=== PATIENT | female | born 1970 | race Caucasian/White ===

== ENCOUNTER 2017-12-28 09:32 | Day surgery (SDC) | payer BC ==
[2017-12-28] VITALS (8 sets, daily range): BP systolic 107–125; BP diastolic 57–73
[~2017-12-28] VITALS: Ht 157.5 cm; Wt 102.1 kg
--- OUTSIDE RECORDS SUMMARY | 2017-12-28 09:37 | XMS REPORT ---
Author Author Arabella Trevino Organization [facility] Address [address] [place], [place] [id number] Care Team Providers Care Filter Press Pumper Name Role Phone Arabella Trevino PCP Unavailable Arabella Trevino PreferredProvider Unavailable Allergies and Adverse Reactions Name Reaction Notes ibuprofen Augmentin Risperdal causes migraines Plan of Treatment Planned Activity Comments Planned Date Planned Time Plan/Goal CBC With Auto Differential 11/16/2015 12:00 AM CMP (comprehensive metabolic panel) 11/16/2015 12:00 AM .Lipid Panel 11/16/2015 12:00 AM Urinalysis with C/S If Indicated 11/16/2015 12:00 AM TSH 11/16/2015 12:00 AM T4, Free 11/16/2015 12:00 AM Free thyroxine (FT4) measurement 01/10/2016 12:00 AM HIP COMP MIN 2 VIEWS 10/27/2016 12:00 AM MRI LUMBAR W/WO CONTRAST 11/11/2016 12:00 AM abd bloating and abd pain for 1 year hypothyroidism unresponsive to treatment Medications Active Name Start Date Estimated Completion Date SIG Comments epinephrine 0.3 mg/0.3 mL injection auto-injector inject 0.3 milliliter (0.3 mg) by intramuscular route once as needed for anaphylaxis Nature-Throid 130 mg oral tablet 05/06/2016 05/01/2017 take 1 tablet (130 mg) by oral route once daily before breakfast for 90 days hydroxyzine pamoate 25 mg oral capsule take 1 capsule (25 mg) by oral route 3 times per day triamterene-hydrochlorothiazid 37.5-25 mg oral tablet take 1 tablet by oral route once daily for 30 days Protonix 40 mg oral tablet,delayed release (DR/EC) 08/12/2016 08/07/2017 take 1 tablet (40 mg) by oral route once daily for 90 days simvastatin 20 mg oral tablet 08/12/2016 02/08/2017 take 1 tablet (20 mg) by oral route once daily in the evening for 90 days Vitamin D2 50,000 unit oral capsule 08/14/2016 08/09/2017 take 1 capsule (50 ,000 unit) by oral route once weekly tramadol 50 mg oral tablet 10/27/2016 01/25/2017 take 1 tablet by oral route 3 times a day for 30 days Name Start Date Expiration Date SIG Comments Flonase Allergy Relief 50 mcg/actuation nasal spray,suspension 08/05/201512/03 inhale 1 puff by nasal route daily for 30 days amoxicillin 500 mg oral tablet 08/05/2015 08/15/2015 take 2 tablets by oral route every 12 hours for 10 days [employer] Thyroid 90 mg oral tablet 08/05/2015 11/03/2015 take 1 tablet by oral route daily for 90 days Prozac 20 mg oral capsule 12/09/2015 06/06/2016 take 2 capsules by oral route daily cyclobenzaprine 10 mg oral tablet 01/10/2016 02/09/2016 take 1 tablet (10 mg) by oral route 3 for 30 days topiramate 100 mg oral tablet 03/21/2016 2016 take 1 tablet (100 mg) by oral route 2 for 30 days gabapentin 800 mg oral tablet 05/06/2016 08/04/2016 take 1 tablet (800 mg) by oral route 3 for 30 days potassium chloride 20 mEq oral tablet extended release 05/06/2016 05/20/2016 take 1 tablet (20 meq) by oral route 2 times per day with food for 14 days sulfamethoxazole-trimethoprim 800-160 mg oral tablet 05/06/2016 05/16/2016 take 1 tablet by oral route every 12 hours for 10 days mupirocin 2 % topical ointment 05/06/2016 05/16/2016 apply a small amount to the affected area by topical route 3 times per day for 10 days baclofen 10 mg oral tablet 08/12/2016 11/10/2016 take 1 tablet (10 mg) by oral route 3 for 30 days amoxicillin 500 mg oral tablet 10/02/2016 10/12/2016 take 2 tablet by oral route 2 times a day for 10 days EpiPen 2-Chuy 0.3 mg/0.3 mL injection auto-injector 10/02/2016 10/05/2016 inject 0.3 milliliter (0.3 mg) by intramuscular route once as needed for anaphylaxis for 1 day Discontinued Name Start Date Discontinued Date SIG Comments levothyroxine 150 mcg oral tablet 05/20/2015 11/16/2015 take 1 tablet (150 mcg ) by oral route once daily on nature- thyroid citalopram 40 mg oral tablet 08/05/2015 11/16/2015 take 1 tablet (40 mg) by oral route once daily for 90 days citalopram 40 mg oral tablet 08/05/2015 11/16/2015 take 1 tablet (40 mg) by oral route once daily for 90 days [facility] switched her to prozac hydroxyzine pamoate 25 mg oral capsule 02/13/2016 take 1 capsule by oral route 3 times a day for 30 days olanzapine 5 mg oral tablet 12/24/2015 take 1 tablet (5 mg) by oral route once daily in the evening for 30 days Boniva 150 mg oral tablet 01/10/2016 02/13/2016 take 1 tablet (150 mg) by oral route once a month on the same date; Take with a full glass of water and remain in an upright position for at least 60 minutes. for 30 days Percocet 10-325 mg oral tablet 08/12/2016 take 1 tablet by oral route every 6 hours as needed Problem List Description Status Onset Anxiety and depression Active Chronic back pain greater than 3 months duration Active arthritis Active Hallucinations Active Heart Attack Active 2012 Kidney stone Active Osteoporosis Active Thyroid disorder Active Depression Active Dizziness Active Anxiety Active Tingling in extremities Active Vital Signs Date Time BP-Sys(mm[Hg] BP-Lakshim(mm[Hg]) HR(bpm) RR(rpm) Temp WT HT HC BMI BSA BMI Percentile O2 Sat(%) 10/27/2016 3:26:00 PM 110 mmHg 70 mmHg 69 bpm 18 rpm 96.9 F 178.6 lbs 62 in 32.67 kg/m2 1.88 m2 100 % 10/02/2016 9:31:00 AM 120 mmHg 80 mmHg 87 bpm 16 rpm 97.4 F 178.6 lbs 62 in 32.666 kg/m 1.8825 m 97 % 08/12/2016 10:41:00 AM 120 mmHg 80 mmHg 85 bpm 16 rpm 96.7 F 182.6 lbs 62 in 33.40 kg/m2 1.90 m2 96 % 05/19/2016 3:08:00 PM 114 mmHg 72 mmHg 76 bpm 97.5 F 181 lbs 62 in 33.105 kg/m 1.8951 m 100 % 05/06/2016 1:41:00 PM 110 mmHg 70 mmHg 83 bpm 18 rpm 97.4 F 186.2 lbs 62 in 34.06 kg/m2 1.92 m2 96 % 02/13/2016 2:33:00 PM 136 mmHg 80 mmHg 87 bpm 18 rpm 98.7 F 185.125 lbs 62 in 33.8595 kg/m 1.9166 m 97 % 01/10/2016 9:27:00 AM 108 mmHg 78 mmHg 86 bpm 20 rpm 96.7 F 180 lbs 100 % 12/09/2015 6:36:00 PM 130 mmHg 80 mmHg 115 bpm 18 rpm 98.3 F 175.25 lbs 62 in 32.0533 kg/m 1.8648 m 99 % 11/16/2015 2:24:00 PM 120 mmHg 80 mmHg 83 bpm 18 rpm 98.1 F 171.25 lbs 62 in 31.32 kg/m2 1.84 m2 99 % 08/05/2015 5:02:00 PM 108 mmHg 80 mmHg 81 bpm 97.7 F 171.25 lbs 62 in 31.3217 kg/m 1.8434 m 98 % 05/20/2015 5:06:00 PM 108 mmHg 86 mmHg 82 bpm 20 rpm 97.2 F 177.125 lbs 62 in 32.40 kg/m2 1.87 m2 98 % Social History Name Description Comments Tobacco Current every day smoker Alcohol Never History of Procedures Date Ordered Description Order Status 12/09/2015 12:00 AM COMPLETE CBC W/AUTO DIFF WBC Reviewed 12/09/2015 12:00 AM COMPREHEN METABOLIC PANEL Reviewed 12/09/2015 12:00 AM LIPID PANEL Reviewed 12/09/2015 12:00 AM URNLS DIP STICK/TABLET RGNT AUTO W/O MICROSCOPY Reviewed 12/09/2015 12:[address] ABD & PELV W/CONTRAST Reviewed 01/10/2016 12:00 AM ASSAY THYROID STIM HORMONE Reviewed 01/10/2016 12:00 AM TDAP VACCINE 7 YRS/> IM Reviewed 05/08/2016 12:00 AM METABOLIC PANEL TOTAL CA Reviewed 05/06/2016 12:00 AM METABOLIC PANEL TOTAL CA Reviewed 05/06/2016 12:00 AM LIPID PANEL Reviewed 05/06/2016 12:00 AM URINALYSIS AUTO W/SCOPE Reviewed 05/06/2016 12:00 AM ASSAY THYROID STIM HORMONE Reviewed 05/06/2016 12:00 AM ASSAY OF FREE THYROXINE Reviewed 05/06/2016 12:00 AM ASSAY OF MAGNESIUM Reviewed 08/12/2016 12:00 AM COMPLETE CBC W/AUTO DIFF WBC Reviewed 08/12/2016 12:00 AM COMPREHEN METABOLIC PANEL Reviewed 08/12/2016 12:00 AM ASSAY THYROID STIM HORMONE Reviewed 08/12/2016 12:00 AM ASSAY OF FREE THYROXINE Reviewed 08/12/2016 12:00 AM ASSAY OF MAGNESIUM Reviewed 08/12/2016 12:00 AM LIPID PANEL Reviewed 08/12/2016 12:00 AM VIT D 1 25-DIHYDROXY Reviewed 08/12/2016 12:00 AM VITAMIN B-12 Reviewed 08/12/2016 12:00 AM ASSAY OF FOLIC ACID SERUM Reviewed 08/12/2016 12:00 AM URNLS DIP STICK/TABLET RGNT AUTO W/O MICROSCOPY Reviewed 10/02/2016 12:00 AM LIPID PANEL Reviewed 10/02/2016 12:00 AM ASSAY THYROID STIM HORMONE Reviewed 10/02/2016 12:00 AM ASSAY OF FREE THYROXINE Reviewed 10/02/2016 12:00 AM FREE ASSAY (FT-3) Reviewed 10/02/2016 12:00 AM COLLECTION VENOUS BLOOD VENIPUNCTURE Reviewed 10/27/2016 12:00 AM X-RAY EXAM THORAC SPINE 2VWS Reviewed 05/20/2015 12:00 AM ELECTROCARDIOGRAM COMPLETE Reviewed Results Summary Data and Description Results 12/13/2015 10:05 AM COLOR YELLOW APPEARANCE CLEAR SPEC GRAV 1.020 pH 7.0 PROTEIN NEGATIVE GLUCOSE NEGATIVE mg/dLKETONE NEGATIVE BILIRUBIN NEGATIVE BLOOD NEGATIVE NITRITE NEGATIVE LEUK SCREEN NEGATIVE MICRO INDICATED? NOT INDICATED WBC 9.6 RBC 4.63 HGB 14.80 g/dLHCT 44.50 %MCV 96.0 fLMCH 32.0 pgMCHC 33.30 g/ dLRDW SD 51 RDW CV 14.40 %MPV 9.70 fLPLT 389 NRBC# 0.00 NRBC% 0.0 %NEUT 50.90 %% LYMP 37.60 %%MONO 8.80 %%EOS 2.30 %%BASO 0.40 %#NEUT 4.89 #LYMP 3.62 #MONO 0.85 #EOS 0.22 #BASO 0.04 MANUAL DIFF NOT IND TRIGLYCERIDES 84.0 mg/dLCHOLESTEROL 212.0 mg/dLHDL 53.0 mg/dLTOT CHOL/HDL 4.0 LDL (CALC) 142.0 mg/dLGLUCOSE 96.0 mg/ dLSODIUM 140.0 mmol/LPOTASSIUM 4.40 mmol/LCHLORIDE 107.0 mmol/LCO2 24.0 mmol/ LBUN 6.0 mg/dLCREATININE 1.0 mg/dLSGOT/AST 18.0 IU/LSGPT/ALT 21.0 IU/LALK PHOS 99.0 IU/LTOTAL PROTEIN 7.30 g/dLALBUMIN 4.20 g/dLTOTAL BILI 0.30 mg/dLCALCIUM 9.20 mg/dLAGE 45 GFR NonAA 60 GFR AA 73 eGFR 60 eGFR AA* >60 05/07/2016 2:52 PM COLOR YELLOW APPEARANCE CLOUDY SPEC GRAV 1.015 pH 7.5 PROTEIN NEGATIVE GLUCOSE NEGATIVE mg/dLKETONE NEGATIVE BILIRUBIN NEGATIVE BLOOD NEGATIVE NITRITE NEGATIVE LEUK SCREEN NEGATIVE MICRO INDICATED? NOT INDICATED TSH 78.650 uIU/mLFREE T4 0.52 GLUCOSE 83.0 mg/dLSODIUM 138.0 mmol/LPOTASSIUM 3.30 mmol/LCHLORIDE 101.0 mmol/LCO2 27.0 mmol/LBUN 9.0 mg/dLCREATININE 1.10 mg/ dLCALCIUM 9.10 mg/dLAGE 45 GFR NonAA 53 GFR AA 64 eGFR 53 eGFR AA* >60 TRIGLYCERIDES 116.0 mg/dLCHOLESTEROL 225.0 mg/dLHDL 40.0 mg/dLTOT CHOL/HDL 5.6 LDL (CALC) 162.0 mg/dLMAGNESIUM 2.50 mg/dL 05/08/2016 2:44 PM GLUCOSE 91.0 mg/dLSODIUM 138.0 mmol/LPOTASSIUM 3.50 mmol/ LCHLORIDE 103.0 mmol/LCO2 26.0 mmol/LBUN 9.0 mg/dLCREATININE 1.0 mg/dLCALCIUM 8.50 mg/dLAGE 45 GFR NonAA 60 GFR AA 73 eGFR 60 eGFR AA* >60 08/12/2016 3:25 PM WBC 12.2 RBC 4.80 HGB 14.80 g/dLHCT 45.80 %MCV 95.0 fLMCH 30.80 pgMCHC 32.30 g/dLRDW SD 53 RDW CV 15.10 %MPV 10.10 fLPLT 403 NRBC# 0.00 NRBC% 0.0 %NEUT 59.0 %%LYMP 33.30 %%MONO 5.10 %%EOS 1.80 %%BASO 0.40 %#NEUT 7.21 #LYMP 4.06 #MONO 0.62 #EOS 0.22 #BASO 0.05 MANUAL DIFF NOT IND GLUCOSE 78.0 mg/dLSODIUM 143.0 mmol/LPOTASSIUM 4.0 mmol/LCHLORIDE 108.0 mmol/LCO2 23.0 mmol/LBUN 12.0 mg/dLCREATININE 1.0 mg/dLSGOT/AST 19.0 IU/LSGPT/ALT 17.0 IU/LALK PHOS 103.0 IU/LTOTAL PROTEIN 7.0 g/dLALBUMIN 4.40 g/dLTOTAL BILI 0.30 mg/ dLCALCIUM 9.20 mg/dLAGE 45 GFR NonAA 60 GFR AA 73 eGFR 60 eGFR AA* >60 COLOR YELLOW APPEARANCE CLEAR SPEC GRAV 1.015 pH 7.0 PROTEIN NEGATIVE GLUCOSE NEGATIVE mg/dLKETONE NEGATIVE BILIRUBIN NEGATIVE BLOOD NEGATIVE NITRITE NEGATIVE LEUK SCREEN NEGATIVE MICRO INDICATED? NOT INDICATED TRIGLYCERIDES 91.0 mg/dLCHOLESTEROL 266.0 mg/dLHDL 47.0 mg/dLTOT CHOL/HDL 5.7 LDL (CALC) 201.0 mg/ dLMAGNESIUM 2.50 mg/dLFREE T4 0.45 VITAMIN B12 256.0 pg/mLFOLATE 4.10 ng/mLTSH 149.640 uIU/mLCalcitriol(1,25 di-OHVit D) 19.80 pg/mL 10/02/2016 2:56 PM TRIGLYCERIDES 94.0 mg/dLCHOLESTEROL 278.0 mg/dLHDL 48.0 mg/ dLTOT CHOL/HDL 5.8 LDL (CALC) 211.0 mg/dLFREE T4 0.45 TSH 125.230 uIU/ mLTriiodothyronine,Free,Serum 1.90 pg/mL History Of Immunizations Name Date Admin Mfg Name Mfg Code Trade Name Lot# Route Inj Vis Given Vis Pub CVX Tdap 01/10/2016 SportStylistine SKB BOOSTRIX [id number] Intramuscular Left Arm 01/10/2016 03/02/2013 115 History of Past Illness Name Date of Onset Comments Anxiety arthritis Depression Dizziness Fractured bone Headache Heart Attack 2013 Kidney stone Osteoporosis Tingling in extremities Thyroid disorder Weight Change Chronic back pain greater than 3 months duration Hallucinations Anxiety and depression Migraine Chest pain of uncertain etiology May 20 2015 5:22PM Short of breath on exertion May 20 2015 5:22PM Orthopnea May 20 2015 5:22PM Cellulitis of face May 20 2015 5:22PM Depression and anxiety Aug 05 2015 5:06PM Migraine Aug 05 2015 5:06PM Sinusitis Aug 05 2015 5:06PM Hypothyroidism, Acquired Nov 16 2015 2:27PM Chronic back pain greater than 3 months duration Nov 16 2015 2:27PM Osteoporosis Nov 16 2015 2:27PM Abdominal Pain Dec 09 2015 6:39PM Abdominal bloating Dec 09 2015 6:39PM Hypothyroidism, Acquired Dec 09 2015 6:39PM Chronic back pain greater than 3 months duration Dec 09 2015 6:39PM Osteoporosis Dec 09 2015 6:39PM Abdominal Pain, Left Upper Quadrant Dec 24 2015 2:22PM Gastritis Dec 24 2015 2:22PM Hypothyroidism, Acquired Jan 10 2016 9:29AM Low Back Pain Jan 10 2016 9:29AM Chronic back pain Jan 10 2016 9:29AM Muscle spasm of back Jan 10 2016 9:29AM Osteoporosis Jan 10 2016 9:29AM Hypothyroidism, Acquired May 06 2016 1:44PM Weight Gain, Abnormal May 06 2016 1:44PM Edema bilateral lower extremities May 06 2016 1:44PM pre-operative examination, unspecified May 06 2016 1:44PM Hypokalemia May 06 2016 1:44PM Cellulitis May 06 2016 1:44PM Lower extremity edema May 08 2016 10:41AM Chronic back pain greater than 3 months duration Feb 13 2016 2:37PM Twitching May 19 2016 3:14PM Hypothyroid Aug 12 2016 10:42AM Migraine Aug 12 2016 10:42AM Neuropathy Aug 12 2016 10:42AM Osteoporosis Aug 12 2016 10:42AM Vitamin D deficiency Aug 12 2016 10:42AM Hypothyroidism, Acquired Aug 12 2016 10:43AM Low Back Pain Aug 12 2016 10:43AM Osteoarthritis Aug 12 2016 10:43AM Osteoporosis Aug 12 2016 10:43AM Vitamin D deficiency Aug 12 2016 10:43AM Hypothyroidism Aug 19 2016 7:55PM Hyperlipidemia, unspecified Oct 02 2016 9:33AM Chronic Hypothyroidism, Acquired Unresponsive to treatment Oct 02 2016 9: 33AM Acute sinusitis Oct 02 2016 9:33AM Acute midline thoracic back pain Oct 27 2016 3:28PM Acute Right Low back strain, initial encounter Oct 27 2016 3:28PM Acute Right Hip pain, right Oct 27 2016 3:28PM Lumbar radiculopathy, right Nov 11 2016 9:29AM Payers Insurance Name Company Name Plan Name Plan Number Policy Number Policy Group Number [facility] Date [id number] N/A [employer]/ [employer] [id number] Wednesday, 2015 History of Encounters Visit Date Visit Type Provider 10/27/2016 Office visit Arabella Trevino APRN 10/02/2016 Office visit Arabella Trevino APRN 08/12/2016 Office visit Arabella Trevino APRN 05/19/2016 Office visit Arabella Trevino APRN 05/08/2016 Laboratory Geeta Gray APRN 05/06/2016 Office visit Arabella Trevino APRN 02/13/2016 Office visit Arabella Trevino APRN 01/29/2016 Voided Arabella Trevino APRN 01/10/2016 Office visit 01/10/2016 Office visit Arabella Trevino APRN 12/24/2015 Office visit Rhett Nj MD 12/09/2015 Office visit Arabella Trevino APRN 11/16/2015 Office visit Arabella Trevino APRN 08/05/2015 Office visit Arabella Trevino APRN 05/20/2015 Office visit Arabella Trevino APRN
--- OUTSIDE RECORDS SUMMARY | 2017-12-28 09:38 | XMS REPORT ---
Author Author Arabella Trevino Organization [facility] Address [address] [place], [place] [id number] Care Team Providers Care Machine Feller Name Role Phone Arabella Trevino PCP , blue stem Unavailable Unavailable maravilla Unavailable Unavailable Arabella Trevino Unavailable Unavailable Arabella Trevino PreferredProvider Allergies and Adverse Reactions Name Reaction Notes ibuprofen swelling Augmentin rash Risperdal causes migraines Plan of Treatment Planned Activity Comments Planned Date Planned Time Plan/Goal CMP (comprehensive metabolic panel) 11/16/2015 12:00 AM .Lipid Panel 11/16/2015 12:00 AM Urinalysis with C/S If Indicated 11/16/2015 12:00 AM TSH 11/16/2015 12:00 AM Free thyroxine (FT4) measurement 01/10/2016 12:00 AM HIP COMP MIN 2 VIEWS 10/27/2016 12:00 AM CBC With Auto Differential 11/17/2017 12:00 AM Free thyroxine (FT4) measurement 11/17/2017 12:00 AM 2D Echo Complete - Adult 11/17/2017 12:00 AM Lexiscan Cardiolite 11/17/2017 12:00 AM abd bloating and abd pain for 1 year hypothyroidism unresponsive to treatment 04/21/2017 1:00 PM cad and elevated lipids 01/19/2017 2:30 PM Evaluate CAD and worsening fatigue 07/20/2017 2:00 PM eval cardiac status Medications Active Name Start Date Estimated Completion Date SIG Comments benztropine 1 mg oral tablet take 1 tablet (1 mg) by oral route once daily fluoxetine 40 mg oral capsule take 1 capsule by oral route 3 times a day Vitamin D3 5,000 unit oral tablet 06/14/2017 06/09/2018 take 1 tablet by oral route daily for 90 days Adult Low Dose Aspirin 81 mg oral tablet,delayed release (DR/EC) 07/14/2017 take 1 tablet (81 mg) by oral route once daily with a meal gabapentin 800 mg oral tablet take 1 tablet (800 mg) by oral route 3 times per day levothyroxine 200 mcg oral tablet take 1 tablet (200 mcg) by oral route once daily atorvastatin 20 mg oral tablet 10/07/2017 take 1 tablet (20 mg) by oral route once daily at bedtime for 90 days aripiprazole 15 mg oral tablet take 1 tablet (15 mg) by oral route once daily furosemide 20 mg oral tablet 11/17/2017 take 1 tablet (20 mg) by oral route once daily for 30 days potassium chloride 20 mEq oral tablet extended release 11/17/2017 take 1 tablet (20 meq) by oral route once daily with food for 30 days Bactrim DS 800-160 mg oral tablet 11/17/2017 take 1 tablet by oral route every 12 hours for 10 days mupirocin 2 % topical ointment 11/17/2017 apply a small amount to the affected area by topical route 3 times per day for 10 days Name Start Date Expiration Date SIG Comments Flonase Allergy Relief 50 mcg/actuation nasal spray,suspension 08/05/201512/03 inhale 1 puff by nasal route daily for 30 days amoxicillin 500 mg oral tablet 08/05/2015 08/15/2015 take 2 tablets by oral route every 12 hours for 10 days [employer] Thyroid 90 mg oral tablet 08/05/2015 11/03/2015 take 1 tablet by oral route daily for 90 days cyclobenzaprine 10 mg oral tablet 01/10/2016 02/09/2016 take 1 tablet (10 mg) by oral route 3 for 30 days topiramate 100 mg oral tablet 03/21/2016 2016 take 1 tablet (100 mg) by oral route 2 for 30 days potassium chloride 20 mEq [...] 3 times per day for 10 days hydroxyzine pamoate 25 mg oral capsule take 1 capsule (25 mg) by oral route 3 times per day simvastatin 20 mg oral tablet 08/12/2016 02/08/2017 take 1 tablet (20 mg) by oral route once daily in the evening for 90 days amoxicillin 500 mg oral tablet 10/02/2016 10/12/2016 take 2 tablet by oral route 2 times a day for 10 days EpiPen 2-Chuy 0.3 mg/0.3 mL injection auto-injector 10/02/2016 10/05/2016 inject 0.3 milliliter (0.3 mg) by intramuscular route once as needed for anaphylaxis for 1 day EpiPen 2-Chuy 0.3 mg/0.3 mL injection auto-injector 10/02/2016 10/05/2016 inject 0.3 milliliter (0.3 mg) by intramuscular route once as needed for anaphylaxis for 1 day baclofen 10 mg oral tablet 02/26/2017 05/27/2017 take 1 tablet (10 mg) by oral route 3 for 30 days nicotine 21 mg/24 hr transdermal patch 24 hour 04/15/2017 07/14/2017 apply 1 patch (21 mg) by transdermal route once daily for 30 days pantoprazole 40 mg oral tablet,delayed release (DR/EC) 05/11/2017 TAKE ONE TABLET BY MOUTH DAILY Trokendi XR 200 mg oral capsule,extended release 24hr take 1 capsule by oral route 2 times a day dihydroergotamine mesylt(bulk) miscellaneous powder use as directed One spray in each nares at onset of migraine. One time per day as needed Nature-Throid 146.25 mg oral tablet 08/13/2017 02/09/2018 take 1 tablet ( 146.25 mg) by oral route once daily before breakfast for 90 days cefdinir 300 mg oral capsule 10/07/2017 take 1 capsule (300 mg) by oral route every 12 hours for 10 days Discontinued Name Start Date Discontinued Date SIG Comments epinephrine 0.3 mg/0.3 mL injection auto-injector 04/06/2017 inject 0.3 milliliter (0.3 mg) by intramuscular route once as needed for anaphylaxis epinephrine 0.3 mg/0.3 mL injection auto-injector 04/06/2017 inject 0.3 milliliter (0.3 mg) by intramuscular route once as needed for anaphylaxis levothyroxine 150 mcg oral tablet 05/20/2015 11/16/2015 [...] 3 times a day for 30 days Prozac 20 mg oral capsule 12/09/2015 04/06/2017 take 2 capsules by oral route daily olanzapine 5 mg oral tablet 12/24/2015 take [...] oral route every 6 hours as needed triamterene-hydrochlorothiazid 37.5-25 mg oral tablet 04/06/2017 take 1 tablet by oral route once daily for 30 days Protonix 40 mg oral tablet,delayed release (DR/EC) 08/12/2016 06/11/2017 take 1 tablet (40 mg) by oral route once daily for 90 days Vitamin D2 50,000 unit oral capsule 08/14/2016 06/11/2017 take 1 capsule (50, 000 unit) by oral route once weekly rizatriptan 10 mg oral tablet 07/14/2017 take 1 tablet (10 mg) by oral route once, may repeat at 2 hour intervals; do not exceed 30 mg in 24 hours ondansetron 4 mg oral tablet,disintegrating 06/11/2017 place 2 tablets (8 mg) on top of the tongue where they will dissolve, then swallow by translingual route 1-2 hours prior to radiation therapy aripiprazole 5 mg oral tablet 07/14/2017 take 1 tablet (5 mg) by oral route once daily gabapentin 800 mg oral tablet 06/11/2017 07/14/2017 take 1 tablet by oral route 2 times a day for 30 days wean off due to fatige and sleepiness atorvastatin 20 mg oral tablet 06/11/2017 10/07/2017 take 1 tablet (20 mg) by oral route once daily at bedtime for 90 days aripiprazole 5 mg oral tablet 08/13/2017 take 1 tablet by oral route 2 times a day tramadol 50 mg oral tablet 07/14/2017 08/13/2017 take 1 tablet by oral route 3 times a day for 30 days tramadol 50 mg oral tablet 07/14/2017 08/13/2017 take 1 tablet by oral route 3 times a day for 30 days due to dizzy spells sulfamethoxazole-trimethoprim 800-160 mg oral tablet 07/14/2017 08/13/2017 take 1 tablet by oral route every 12 hours for 10 days mupirocin 2 % topical ointment 07/14/2017 08/13/2017 apply a small amount to the affected area by topical route 3 times per day for 14 days gabapentin 300 mg oral capsule 08/13/2017 10/07/2017 take 1 capsule po in am and 2 at hs. Decreased dose 08/13/17 Problem List Description Status Onset Anxiety and depression Active Chronic back pain greater than 3 months duration Active arthritis Active Hallucinations Active Heart Attack Active 2013 Kidney stone Active Osteoporosis Active Thyroid disorder Active Depression Active Dizziness Active Anxiety Active Tingling in extremities Active Vital Signs Date Time BP-Sys(mm[Hg] BP-Lakshmi(mm[Hg]) HR(bpm) RR(rpm) Temp WT HT HC BMI BSA BMI Percentile O2 Sat(%) 11/17/2017 9:46:00 AM 108 mmHg 82 mmHg 86 bpm 18 rpm 96.7 F 213 lbs 62 in 38.96 kg/m2 2.06 m2 100 % 10/07/2017 2:21:00 PM 100 mmHg 70 mmHg 96 bpm 18 rpm 98.6 F 208.375 lbs 62 in 38.1119 kg/m 2.0334 m 99 % 08/13/2017 9:51:00 AM 98 mmHg 80 mmHg 84 bpm 18 rpm 96.4 F 201.5 lbs 62 in 36.85 kg/m2 2.00 m2 97 % 07/14/2017 11:17:00 AM 102 mmHg 66 mmHg 78 bpm 18 rpm 96.6 F 186.25 lbs 62 in 34.0652 kg/m 1.9224 m 99 % 06/11/2017 8:56:00 AM 110 mmHg 78 mmHg 75 bpm 18 rpm 96.5 F 183 lbs 62 in 33.47 kg/m2 1.91 m2 98 % 05/19/2017 10:51:00 AM 128 mmHg 84 mmHg 88 bpm 20 rpm 96.5 F 172.25 lbs 62 in 31.5046 kg/m 1.8487 m 98 % 04/22/2017 4:46:00 PM 104 mmHg 78 mmHg 84 bpm 18 rpm 97.4 F 170.375 lbs 62 in 31.16 kg/m2 1.84 m2 97 % 04/06/2017 2:06:00 PM 126 mmHg 70 mmHg 98 bpm 20 rpm 97.9 F 172.25 lbs 62 in 31.5046 kg/m 1.8487 m 97 % 03/01/2017 3:15:00 PM 102 mmHg 80 mmHg 79 bpm 16 rpm 97.8 F 168.25 lbs 62 in 30.77 kg/m2 1.83 m2 100 % 12/30/2016 2:17:00 PM 90 mmHg 58 mmHg 78 bpm 96.3 F 173 lbs 62 in 31.6418 kg/m 1.8528 m 98 % 10/27/2016 3:26:00 PM 110 mmHg 70 mmHg [...] of Procedures Date Ordered Description Order Status 11/16/2015 12:00 AM COMPLETE CBC W/AUTO DIFF WBC Returned 11/16/2015 12:00 AM ASSAY OF FREE THYROXINE Returned 12/09/2015 12:00 AM COMPLETE CBC W/AUTO DIFF [...] AM X-RAY EXAM THORAC SPINE 2VWS Reviewed 11/11/2016 12:00 AM MRI LUMBAR SPINE W/O & W/DYE Returned 03/01/2017 12:00 AM ASSAY THYROID STIM HORMONE Reviewed 03/01/2017 12:00 AM COMPLETE CBC W/AUTO DIFF WBC Reviewed 03/01/2017 12:00 AM COMPREHEN METABOLIC PANEL Reviewed 03/01/2017 12:00 AM LIPID PANEL Reviewed 03/01/2017 12:00 AM URNLS DIP STICK/TABLET RGNT AUTO W/O MICROSCOPY Reviewed 03/01/2017 12:00 AM ETHOS drug screen collection Reviewed 03/01/2017 12:00 AM ASSAY OF FREE THYROXINE Reviewed 03/01/2017 12:00 AM FREE ASSAY (FT-3) Reviewed 03/01/2017 12:00 AM COLLECTION VENOUS BLOOD VENIPUNCTURE Reviewed 04/06/2017 12:00 AM THER/PROPH/DIAG INJ SC/IM Reviewed 04/06/2017 12:00 AM Norflex 60mg Injection Reviewed 04/21/2017 12:00 AM ROUTINE VENIPUNCTURE Reviewed 05/19/2017 12:00 AM THER/PROPH/DIAG INJ SC/IM Reviewed 05/19/2017 12:00 AM Phenergan 25mg Injection Reviewed 05/19/2017 12:00 AM Toradol 30 Mg Injection Reviewed 06/11/2017 12:00 AM COMPLETE CBC W/AUTO DIFF WBC Reviewed 06/11/2017 12:00 AM COMPREHEN METABOLIC PANEL Reviewed 06/11/2017 12:00 AM URINALYSIS AUTO W/SCOPE Reviewed 06/11/2017 12:00 AM ASSAY THYROID STIM HORMONE Reviewed 06/11/2017 12:00 AM ASSAY OF FREE THYROXINE Reviewed 06/11/2017 12:00 AM FREE ASSAY (FT-3) Reviewed 06/11/2017 12:00 AM VITAMIN D 25 HYDROXY Reviewed 06/11/2017 12:00 AM ELECTROCARDIOGRAM COMPLETE Reviewed 06/11/2017 12:[address] HEAD/BRAIN W/O & W/DYE Reviewed 06/11/2017 12:00 AM ASSAY OF MAGNESIUM Reviewed 08/13/2017 12:00 AM COMPLETE CBC W/AUTO DIFF WBC Reviewed 08/13/2017 12:00 AM COMPREHEN METABOLIC PANEL Reviewed 08/13/2017 12:00 AM ASSAY THYROID STIM HORMONE Reviewed 08/13/2017 12:00 AM ASSAY OF FREE THYROXINE Reviewed 08/13/2017 12:00 AM FREE ASSAY (FT-3) Reviewed 08/13/2017 12:00 AM COLLECTION VENOUS BLOOD VENIPUNCTURE Reviewed 11/17/2017 12:00 AM COMPREHEN METABOLIC PANEL Reviewed 11/17/2017 12:00 AM LIPID PANEL Reviewed 11/17/2017 12:00 AM ASSAY THYROID STIM HORMONE Reviewed 11/17/2017 12:00 AM CHEST X-RAY 2VW FRONTAL&LATL Reviewed 11/17/2017 12:00 AM VITAMIN D 25 HYDROXY Reviewed 11/17/2017 12:00 AM ASSAY OF NATRIURETIC PEPTIDE Reviewed 11/17/2017 12:00 AM URNLS DIP STICK/TABLET RGNT AUTO W/O MICROSCOPY Reviewed 11/17/2017 12:00 AM COLLECTION VENOUS BLOOD VENIPUNCTURE Reviewed 11/17/2017 12:00 AM ELECTROCARDIOGRAM TRACING Reviewed 05/20/2015 12:00 AM ELECTROCARDIOGRAM COMPLETE Reviewed Results Summary Date and Description Results 12/13/2015 10:05 AM COLOR [...] 0.45 TSH 125.230 uIU/ mLTriiodothyronine,Free,Serum 1.90 pg/mL 03/01/2017 3:55 PM WBC 15.0 RBC 4.41 HGB 13.70 g/dLHCT 42.30 %MCV 96.0 fLMCH 31.10 pgMCHC 32.40 g/dLRDW SD 50 RDW CV 14.20 %MPV 11.0 fLPLT 336 NRBC# 0.00 NRBC% 0.0 %NEUT 57.90 %%LYMP 32.10 %%MONO 6.90 %%EOS 2.30 %%BASO 0.50 %#NEUT 8.68 #LYMP 4.81 #MONO 1.03 #EOS 0.35 #BASO 0.08 MANUAL DIFF NOT IND GLUCOSE 87.0 mg/dLSODIUM 141.0 mmol/LPOTASSIUM 3.90 mmol/LCHLORIDE 109.0 mmol/LCO2 24.0 mmol/LBUN 6.0 mg/dLCREATININE 0.90 mg/dLSGOT/AST 14.0 IU/LSGPT/ALT 15.0 IU/LALK PHOS 81.0 IU/LTOTAL PROTEIN 6.70 g/dLALBUMIN 4.0 g/dLTOTAL BILI 0.20 mg/ dLCALCIUM 8.90 mg/dLAGE 46 GFR NonAA 67 GFR AA 81 eGFR >60 mL/min/1.73meGFR AA * >60 TSH 31.240 uIU/mLFREE T4 0.53 TRIGLYCERIDES 130.0 mg/dLCHOLESTEROL 172.0 mg/dLHDL 45.0 mg/dLTOT CHOL/HDL 3.8 LDL (CALC) 101.0 mg/dLCOLOR YELLOW APPEARANCE CLEAR SPEC GRAV <=1.005 pH 6.5 PROTEIN NEGATIVE GLUCOSE NEGATIVE mg/ dLKETONE NEGATIVE BILIRUBIN NEGATIVE BLOOD NEGATIVE NITRITE NEGATIVE LEUK SCREEN NEGATIVE MICRO INDICATED? NOT INDICATED Triiodothyronine,Free,Serum 2.60 pg/mL 06/11/2017 10:55 AM COLOR YELLOW APPEARANCE CLEAR SPEC GRAV <=1.005 pH 6.5 PROTEIN NEGATIVE GLUCOSE NEGATIVE mg/dLKETONE NEGATIVE BILIRUBIN NEGATIVE BLOOD NEGATIVE NITRITE NEGATIVE LEUK SCREEN NEGATIVE MICRO INDICATED? NOT INDICATED GLUCOSE 81.0 mg/dLSODIUM 140.0 mmol/LPOTASSIUM 4.20 mmol/LCHLORIDE 106.0 mmol/ LCO2 27.0 mmol/LBUN 15.0 mg/dLCREATININE 1.0 mg/dLSGOT/AST 29.0 IU/LSGPT/ALT 43.0 IU/LALK PHOS 103.0 IU/LTOTAL PROTEIN 6.80 g/dLALBUMIN 3.90 g/dLTOTAL BILI 0.30 mg/dLCALCIUM 8.90 mg/dLAGE 46 GFR NonAA 59 GFR AA 72 eGFR 59 eGFR AA* >60 MAGNESIUM 2.20 mg/dLWBC 12.5 RBC 4.31 HGB 13.40 g/dLHCT 41.10 %MCV 95.0 fLMCH 31.10 pgMCHC 32.60 g/dLRDW SD 55 RDW CV 15.60 %MPV 10.20 fLPLT 346 NRBC# 0.00 NRBC% 0.0 %NEUT 46.80 %%LYMP 42.70 %%MONO 6.10 %%EOS 3.50 %%BASO 0.60 %#NEUT 5.83 #LYMP 5.33 #MONO 0.76 #EOS 0.44 #BASO 0.07 MANUAL DIFF NOT IND VITAMIN D 24.80 ng/mLTSH 183.190 uIU/mLFREE T4 0.42 Triiodothyronine,Free,Serum 3.40 pg/mL 08/13/2017 10:35 AM TSH 23.610 uIU/mLFREE T4 0.50 WBC 10.1 RBC 4.34 HGB 13.90 g/dLHCT 42.0 %MCV 97.0 fLMCH 32.0 pgMCHC 33.10 g/dLRDW SD 50 RDW CV 14.0 %MPV 10.0 fLPLT 374 NRBC# 0.00 NRBC% 0.0 %NEUT 47.90 %%LYMP 38.30 %%MONO 9.40 %%EOS 3.50 %%BASO 0.70 %#NEUT 4.85 #LYMP 3.88 #MONO 0.95 #EOS 0.35 #BASO 0.07 MANUAL DIFF NOT IND GLUCOSE 76.0 mg/dLSODIUM 138.0 mmol/LPOTASSIUM 4.50 mmol/LCHLORIDE 103.0 mmol/LCO2 27.0 mmol/LBUN 12.0 mg/dLCREATININE 0.90 mg/dLSGOT/AST 39.0 IU/ LSGPT/ALT 96.0 IU/LALK PHOS 95.0 IU/LTOTAL PROTEIN 7.10 g/dLALBUMIN 4.10 g/ dLTOTAL BILI 0.50 mg/dLCALCIUM 10.0 mg/dLAGE 46 GFR NonAA 67 GFR AA 81 eGFR >60 mL/min/1.73meGFR AA* >60 Triiodothyronine,Free,Serum 2.50 pg/mL 11/17/2017 10:40 AM TSH 1.310 uIU/mLBNP 15.0 pg/mLVITAMIN D 25.60 ng/mLCOLOR YELLOW APPEARANCE CLEAR SPEC GRAV <=1.005 pH 5.5 PROTEIN NEGATIVE GLUCOSE NEGATIVE mg/dLKETONE NEGATIVE BILIRUBIN NEGATIVE BLOOD NEGATIVE NITRITE NEGATIVE LEUK SCREEN NEGATIVE MICRO INDICATED? NOT INDICATED GLUCOSE 92.0 mg/ dLSODIUM 139.0 mmol/LPOTASSIUM 4.20 mmol/LCHLORIDE 105.0 mmol/LCO2 24.0 mmol/ LBUN 9.0 mg/dLCREATININE 0.90 mg/dLSGOT/AST 24.0 IU/LSGPT/ALT 41.0 IU/LALK PHOS 87.0 IU/LTOTAL PROTEIN 7.20 g/dLALBUMIN 4.40 g/dLTOTAL BILI 0.70 mg/dLCALCIUM 9.50 mg/dLAGE 47 GFR NonAA 67 GFR AA 81 eGFR >60 mL/min/1.73meGFR AA* >60 TRIGLYCERIDES 96.0 mg/dLCHOLESTEROL 169.0 mg/dLHDL 52.0 mg/dLTOT CHOL/HDL 3.3 LDL (CALC) 98.0 mg/dL History Of Immunizations Name Date Admin Mfg Name Mfg Code Trade Name Lot# Route Inj Vis Given Vis Pub CVX Tdap 01/10/2016 [employer] SKB BOOSTRIX [id number] Intramuscular Left Arm 01/10/2016 03/02/2013 115 History of Past Illness Name Date of Onset Comments Anxiety arthritis Depression Dizziness Fractured bone Headache Heart Attack 2013 Kidney stone Osteoporosis Tingling in extremities Thyroid disorder Weight Change Chronic back pain greater than 3 months duration Hallucinations Anxiety and depression Migraine Vitamin D Deficiency Chest pain of uncertain etiology May 20 [...] Lumbar radiculopathy, right Nov 11 2016 9:29AM Degenerative disc disease, lumbar Dec 30 2016 2:24PM Hyperlipidemia, unspecified Dec 30 2016 2:24PM Coronary artery disease involving [place] heart without angina pectoris, unspecified vessel or lesion type Dec 30 2016 2:24PM Hyperlipidemia, unspecified Mar 01 2017 3:22PM Hypothyroidism, Acquired Mar 01 2017 3:22PM Lumbar radicular pain Mar 01 2017 3:22PM Costochondritis, acute Mar 01 2017 3:22PM Low back pain Apr 06 2017 2:08PM Hypothyroidism Apr 21 2017 3:58PM Hyperlipidemia, unspecified Apr 22 2017 4:58PM Osteoporosis Apr 22 2017 4:58PM Vitamin D deficiency Apr 22 2017 4:58PM Migraine May 19 2017 10:53AM Acid Reflux Jun 11 2017 9:12AM Hypothyroidism, Acquired Jun 11 2017 9:12AM Head trauma Jun 11 2017 9:12AM Leg weakness, bilateral Jun 11 2017 9:12AM Tremors of nervous system Jun 11 2017 9:12AM Cellulitis Jun 11 2017 9:12AM CAD Jun 11 2017 9:12AM Fatigue Jun 11 2017 9:12AM Abnormal EKG Jun 11 2017 9:12AM Cellulitis of left breast Jul 14 2017 11:31AM Lumbar pain Jul 14 2017 11:31AM Cervical pain Jul 14 2017 11:31AM Hypothyroidism, Acquired Aug 13 2017 10:05AM Hyperlipidemia, unspecified Aug 13 2017 10:05AM Encounter for screening mammogram for breast cancer Aug 13 2017 10:05AM Low back pain Aug 13 2017 10:05AM Other chronic pain Aug 13 2017 10:05AM Acute sinusitis Oct 07 2017 2:33PM Hyperlipidemia, unspecified Nov 17 2017 9:50AM Hypothyroidism, Acquired Nov 17 2017 9:50AM Cellulitis Nov 17 2017 9:50AM Pedal edema Nov 17 2017 9:50AM Coronary artery disease Nov 17 2017 9:50AM Vitamin D deficiency Nov 17 2017 9:50AM Shortness of breath Nov 17 2017 9:50AM Payers Insurance Name Company Name Plan Name Plan Number Policy Number Policy Group Number Start Date BCBS Bcbs [facility] [id number] N/A [employer] [id number] Wednesday, 2015 BCBS [employer] [facility] [place] [id number] N/A History of Encounters Visit Date Visit Type Provider 11/17/2017 Office visit Arabella Trevino APRN 10/07/2017 Office visit Arabella Trevnio [employer] 08/13/2017 Office visit Arabella Trevino [employer]IVER 07/14/2017 Office visit Arabella Trevino [employer] TR[employer] DRIVER 06/11/2017 [facility] Maegan Oliver MD 06/11/2017 Office visit Arabella Trevino [employer] DRIVER 05/19/2017 Office visit Geeta Gray [employer] TR[employer]IVER 04/22/2017 Office visit Arabella Trevino [employer] TRUCK DRIVER 04/21/2017 Laboratory Tavares Peck [employer]LE TRUCK DRIVER 04/06/2017 Office visit Geeta rGay [employer]LE TRUCK DRIVER 03/01/2017 Office visit Arabella Trevino [employer]LE TRUCK DRIVER 12/30/2016 Office visit Arabella Trevino [employer]LE TRUCK DRIVER 10/27/2016 Office visit Arabella Trevino [employer]LE TRUCK DRIVER 10/02/2016 Office visit Arabella Trevino [employer]ADDLE TRUCK DRIVER 08/12/2016 Office visit Arabella Trevino [employer]LE TRUCK DRIVER 05/19/2016 Office visit Arabella Trevino [employer]LE TRUCK DRIVER 05/08/2016 Laboratory Geeta Marina [employer]LE [employer]IVER 05/06/2016 Office visit Arabella Trevino [employer]LE TRUCK DRIVER 02/13/2016 Office visit Arabella Trevino [employer]LE TRUCK DRIVER 01/29/2016 Voided Arabella Trevino [employer]ADDLE TRUCK DRIVER 01/10/2016 Office visit 01/10/2016 Office visit Arabella Trevino [employer]LE TRUCK DRIVER 12/24/2015 Office visit Rhett Nj MD 12/09/2015 Office visit Arabella Trevino [employer]LE TRUCK DRIVER 11/16/2015 Office visit Arabella Trevino [employer]LE TRUCK DRIVER 08/05/2015 Office visit Arabella Trevino [employer]LE TR[employer] DRIVER 05/20/2015 Office visit Arabella Trevino APRN
--- OUTSIDE RECORDS SUMMARY | 2017-12-28 09:39 | XMS REPORT ---
Author Arabella Bran Organization [facility] Address [address] [place], [place] [id number] Care Team Providers Care Awning Hanger Supervisor Name Role Phone Arabella Trevino PCP Unavailable , blue stem Unavailable Unavailable Arabella Trevino PreferredProvider Unavailable Allergies and [...] COMP MIN 2 VIEWS 10/27/2016 12:00 AM abd bloating and abd pain for 1 year hypothyroidism unresponsive to treatment 04/21/2017 1:00 PM cad and elevated lipids 01/19/2017 2:30 PM Medications Active Name Start Date Estimated Completion [...] ,000 unit) by oral route once weekly gabapentin 800 mg oral tablet 11/17/2016 02/15/2017 take 1 tablet (800 mg) by oral route 3 for 30 days tramadol 50 mg oral tablet 12/30/2016 03/30/2017 take 1 tablet by oral route 3 times a day for 30 days Name Start Date Expiration Date SIG Comments Flonase Allergy Relief 50 mcg/actuation nasal spray,suspension 08/05/201512/03 inhale 1 puff by nasal route daily for 30 days amoxicillin 500 mg oral tablet 08/05/2015 08/15/2015 take 2 tablets by oral route every 12 hours for 10 days [employer] Thyroid 90 mg oral tablet 08/05/2015 11/03/2015 [...] HC BMI BSA BMI Percentile O2 Sat(%) 12/30/2016 2:17:00 PM 90 mmHg 58 mmHg 78 bpm 96.3 F 173 lbs 62 in 31.64 kg/m2 1.85 m2 98 % 10/27/2016 3:26:00 PM 110 mmHg 70 mmHg 69 bpm 18 rpm 96.9 F 178.6 lbs 62 in 32.666 kg/m 1.8825 m 100 % 10/02/2016 9:31:00 AM 120 mmHg 80 mmHg 87 bpm 16 rpm 97.4 F 178.6 lbs 62 in 32.67 kg/m2 1.88 m2 97 % 08/12/2016 10:41:00 AM 120 mmHg 80 mmHg 85 bpm 16 rpm 96.7 F 182.6 lbs 62 in 33.3976 kg/m 1.9035 m 96 % 05/19/2016 3:08:00 PM 114 mmHg 72 mmHg 76 bpm 97.5 F 181 lbs 62 in 33.10 kg/m2 1.90 m2 100 % 05/06/2016 1:41:00 PM 110 mmHg 70 mmHg 83 bpm 18 rpm 97.4 F 186.2 lbs 62 in 34.0561 kg/m 1.9221 m 96 % 02/13/2016 2:33:00 PM 136 mmHg 80 mmHg 87 bpm 18 rpm 98.7 F 185.125 lbs 62 in 33.86 kg/m2 1.92 m2 97 % 01/10/2016 9:27:00 AM 108 mmHg 78 mmHg 86 bpm 20 rpm 96.7 F 180 lbs 100 % 12/09/2015 6:36:00 PM 130 mmHg 80 mmHg 115 bpm 18 rpm 98.3 F 175.25 lbs 62 in 32.05 kg/m2 1.86 m2 99 % 11/16/2015 2:24:00 PM 120 mmHg 80 mmHg 83 bpm 18 rpm 98.1 F 171.25 lbs 62 in 31.3217 kg/m 1.8434 m 99 % 08/05/2015 5:02:00 PM 108 mmHg 80 mmHg 81 bpm 97.7 F 171.25 lbs 62 in 31.32 kg/m2 1.84 m2 98 % 05/20/2015 5:06:00 PM 108 mmHg 86 mmHg 82 bpm 20 rpm 97.2 F 177.125 lbs 62 in 32.3963 kg/m 1.8747 m 98 % Social History Name Description Comments [...] MRI LUMBAR SPINE W/O & W/DYE Returned 05/20/2015 12:00 AM ELECTROCARDIOGRAM COMPLETE Reviewed Results [...] pg/mL History Of Immunizations Name Date Admin [facility] Name g Code Trade Name Lot# Route Inj Vis Given Vis Pub CVX Tdap 01/10/2016 [employer] SKB BOOSTRIX [id number] Intramuscular Left Arm 01/10/2016 [...] 2:24PM Hyperlipidemia, unspecified Dec 30 2016 2:24PM CAD (coronary artery disease) Dec 30 2016 2:24PM Payers Insurance Name Company Name Plan Name Plan Number Policy Number Policy Group Number Start Date BCBS Bcbs [facility] [id number] N/A [employer]EFI [employer] [id number] Wednesday, 2015 History of Encounters Visit Date Visit Type Provider 12/30/2016 Office visit Arabella Trevino APRN 10/27/2016 Office visit Arabella Trevino APRN 10/02/2016 [...]
--- OUTSIDE RECORDS SUMMARY | 2017-12-28 09:40 | XMS REPORT ---
Author Author Arabella Trevino Organization [facility] Address [address] [facility] [address] [place], [place] [id number] Care Team Providers Care Broom Stitcher Name Role Phone Arabella Trevino PCP Unavailable Allergies and Adverse Reactions Name Reaction Notes ibuprofen Augmentin Risperdal causes migraines Plan of Treatment Planned Activity Comments Planned Date Planned Time Plan/Goal COMPLETE CBC W/AUTO DIFF WBC 11/16/2015 12:00 AM COMPREHEN METABOLIC PANEL 11/16/2015 12:00 AM LIPID PANEL 11/16/2015 12:00 AM URINALYSIS AUTO W/SCOPE 11/16/2015 12:00 AM ASSAY THYROID STIM HORMONE 11/16/2015 12:00 AM ASSAY OF FREE THYROXINE 11/16/2015 12:00 AM ASSAY OF FREE THYROXINE 01/10/2016 12:00 AM abd bloating and abd pain for 1 year Medications Active Name Start Date Estimated Completion Date SIG Comments epinephrine 0.3 mg/0.3 mL injection auto-injector inject 0.3 milliliter (0.3 mg) by intramuscular route once as needed for anaphylaxis topiramate 100 mg oral tablet 03/21/2016 2016 take 1 tablet (100 mg) by oral route 2 for 30 days Nature-Throid 130 mg oral tablet 05/06/2016 05/01/2017 take 1 tablet (130 mg) by oral route once daily before breakfast for 90 days hydroxyzine pamoate 25 mg oral capsule take 1 capsule (25 mg) by oral route 3 times per day triamterene-hydrochlorothiazid 37.5-25 mg oral tablet take 1 tablet by oral route once daily for 30 days tramadol 50 mg oral tablet 08/12/2016 11/10/2016 take 1 tablet by oral route 3 times a day for 30 days baclofen 10 mg oral tablet 08/12/2016 11/10/2016 take 1 tablet (10 mg) by oral route 3 for 30 days Protonix 40 mg oral [...] ,000 unit) by oral route once weekly Name Start Date Expiration Date SIG Comments Flonase Allergy Relief 50 mcg/actuation nasal spray,suspension 08/05/201512/03 inhale 1 puff by nasal route daily for 30 days amoxicillin 500 mg oral tablet 08/05/2015 08/15/2015 take 2 tablets by oral route every 12 hours for 10 days BUCK PRESSER Thyroid 90 mg oral tablet 08/05/2015 11/03/2015 take 1 tablet by oral route daily for 90 days Prozac 20 mg oral capsule 12/09/2015 06/06/2016 take 2 capsules by oral route daily cyclobenzaprine 10 mg oral tablet 01/10/2016 02/09/2016 take 1 tablet (10 mg) by oral route 3 for 30 days gabapentin 800 mg oral [...] 3 times per day for 10 days Discontinued Name Start Date [...] HC BMI BSA BMI Percentile O2 Sat(%) 08/12/2016 10:41:00 AM 120 mmHg 80 mmHg [...] AM COMPLETE CBC W/AUTO DIFF WBC Returned 12/09/2015 12:00 AM COMPREHEN METABOLIC PANEL Returned 12/09/2015 12:00 AM LIPID PANEL Returned 12/09/2015 12:00 AM URNLS DIP STICK/TABLET RGNT AUTO W/O MICROSCOPY Returned 12/09/2015 12:[address] ABD & PELV W/CONTRAST Returned 01/10/2016 12:00 AM ASSAY THYROID STIM HORMONE Reviewed 01/10/2016 12:00 AM TDAP VACCINE 7 YRS/> IM Reviewed 05/08/2016 12:00 AM METABOLIC PANEL TOTAL CA Returned 05/06/2016 12:00 AM METABOLIC PANEL TOTAL CA Returned 05/06/2016 12:00 AM LIPID PANEL Returned 05/06/2016 12:00 AM URINALYSIS AUTO W/SCOPE Returned 05/06/2016 12:00 AM ASSAY THYROID STIM HORMONE Returned 05/06/2016 12:00 AM ASSAY OF FREE THYROXINE Returned 05/06/2016 12:00 AM ASSAY OF MAGNESIUM Returned 08/12/2016 12:00 AM COMPLETE CBC W/AUTO DIFF WBC Returned 08/12/2016 12:00 AM COMPREHEN METABOLIC PANEL Returned 08/12/2016 12:00 AM ASSAY THYROID STIM HORMONE Returned 08/12/2016 12:00 AM ASSAY OF FREE THYROXINE Returned 08/12/2016 12:00 AM ASSAY OF MAGNESIUM Returned 08/12/2016 12:00 AM LIPID PANEL Returned 08/12/2016 12:00 AM VIT D 1 25-DIHYDROXY Returned 08/12/2016 12:00 AM VITAMIN B-12 Returned 08/12/2016 12:00 AM ASSAY OF FOLIC ACID SERUM Returned 08/12/2016 12:00 AM URNLS DIP STICK/TABLET RGNT AUTO W/O MICROSCOPY Returned 05/20/2015 12:00 AM ELECTROCARDIOGRAM COMPLETE Returned Results Summary Data and Description Results 12/13/2015 10:05 AM COLOR YELLOW APPEARANCE CLEAR SPEC GRAV 1.020 pH 7.0 PROTEIN NEGATIVE GLUCOSE NEGATIVE mg/dLKETONE NEGATIVE BILIRUBIN NEGATIVE BLOOD NEGATIVE NITRITE NEGATIVE LEUK SCREEN NEGATIVE WBC 9.6 RBC 4.63 HGB 14.80 g/ dLHCT 44.50 %MCV 96.0 fLMCH 32.0 pgMCHC 33.30 g/dLRDW CV 14.40 %MPV 9.70 fLPLT 389 %NEUT 50.90 %%LYMP 37.60 %%MONO 8.80 %%EOS 2.30 %%BASO 0.40 %#NEUT 4.89 # LYMP 3.62 #MONO 0.85 #EOS 0.22 #BASO 0.04 TRIGLYCERIDES 84.0 mg/dLCHOLESTEROL 212.0 mg/dLHDL 53.0 mg/dLLDL (CALC) 142.0 mg/dLGLUCOSE 96.0 mg/dLSODIUM 140.0 mmol/LPOTASSIUM 4.40 mmol/LCHLORIDE 107.0 mmol/LCO2 24.0 mmol/LBUN 6.0 mg/ dLCREATININE 1.0 mg/dLSGOT/AST 18.0 IU/LSGPT/ALT 21.0 IU/LALK PHOS 99.0 IU/ LTOTAL PROTEIN 7.30 g/dLALBUMIN 4.20 g/dLTOTAL BILI 0.30 mg/dLCALCIUM 9.20 mg/ dLeGFR 60 05/07/2016 2:52 PM COLOR YELLOW APPEARANCE CLOUDY SPEC GRAV 1.015 pH 7.5 PROTEIN NEGATIVE GLUCOSE NEGATIVE mg/dLKETONE NEGATIVE BILIRUBIN NEGATIVE BLOOD NEGATIVE NITRITE NEGATIVE LEUK SCREEN NEGATIVE TSH 78.650 uIU/mLGLUCOSE 83.0 mg/ dLSODIUM 138.0 mmol/LPOTASSIUM 3.30 mmol/LCHLORIDE 101.0 mmol/LCO2 27.0 mmol/ LBUN 9.0 mg/dLCREATININE 1.10 mg/dLCALCIUM 9.10 mg/dLeGFR 53 TRIGLYCERIDES 116.0 mg/dLCHOLESTEROL 225.0 mg/dLHDL 40.0 mg/dLLDL (CALC) 162.0 mg/dLMAGNESIUM 2.50 mg/dL 05/08/2016 2:44 PM GLUCOSE 91.0 mg/dLSODIUM 138.0 mmol/LPOTASSIUM 3.50 mmol/ LCHLORIDE 103.0 mmol/LCO2 26.0 mmol/LBUN 9.0 mg/dLCREATININE 1.0 mg/dLCALCIUM 8.50 mg/dLeGFR 60 08/12/2016 3:25 PM WBC 12.2 RBC 4.80 HGB 14.80 g/dLHCT 45.80 %MCV 95.0 fLMCH 30.80 pgMCHC 32.30 g/dLRDW CV 15.10 %MPV 10.10 fLPLT 403 %NEUT 59.0 %%LYMP 33.30 %%MONO 5.10 %%EOS 1.80 %%BASO 0.40 %#NEUT 7.21 #LYMP 4.06 #MONO 0.62 #EOS 0.22 #BASO 0.05 GLUCOSE 78.0 mg/dLSODIUM 143.0 mmol/LPOTASSIUM 4.0 mmol/ LCHLORIDE 108.0 mmol/LCO2 23.0 mmol/LBUN 12.0 mg/dLCREATININE 1.0 mg/dLSGOT/AST 19.0 IU/LSGPT/ALT 17.0 IU/LALK PHOS 103.0 IU/LTOTAL PROTEIN 7.0 g/dLALBUMIN 4.40 g/dLTOTAL BILI 0.30 mg/dLCALCIUM 9.20 mg/dLeGFR 60 COLOR YELLOW APPEARANCE CLEAR SPEC GRAV 1.015 pH 7.0 PROTEIN NEGATIVE GLUCOSE NEGATIVE mg/dLKETONE NEGATIVE BILIRUBIN NEGATIVE BLOOD NEGATIVE NITRITE NEGATIVE LEUK SCREEN NEGATIVE TRIGLYCERIDES 91.0 mg/dLCHOLESTEROL 266.0 mg/dLHDL 47.0 mg/dLLDL (CALC ) 201.0 mg/dLMAGNESIUM 2.50 mg/dLVITAMIN B12 256.0 pg/mLFOLATE 4.10 ng/mLTSH 149.640 uIU/mLCalcitriol(1,25 di-OHVit D) 19.80 pg/mL History Of Immunizations Name Date Admin Mfg Name Mfg Code Trade Name Lot# Route Inj Vis Given Vis Pub CVX Tdap 01/10/2016 StayNTouch SKB BOOSTRIX [id number] Intramuscular Left Arm 01/10/2016 03/02/2013 115 History of Past Illness Name Date of Onset Comments Anxiety arthritis Depression Dizziness Fractured bone Headache Heart Attack 2012 Kidney stone Osteoporosis Tingling in extremities Thyroid disorder Weight Change Chronic back pain greater than 3 months duration Hallucinations Anxiety and depression Migraine Chest pain of uncertain etiology John 27 2015 5:22PM Short of breath on exertion [...] 2016 10:43AM Hypothyroidism Aug 19 2016 7:55PM Payers Insurance Name Company Name Plan Name Plan Number Policy Number Policy Group Number Start Date BCBS [facility] [id number] N/A [employer]/ OEFI [employer] [id number] Wednesday, 2015 History of Encounters Visit Date Visit Type Provider 08/12/2016 Office visit Arabella Trevino APRN 05/19/2016 Office visit Arabella Trevino APRN 05/08/2016 Laboratory Geeta Marina LOPES 05/06/2016 Office visit Arabella Trevino APRN 02/13/2016 Office visit Arabella Trevino APRN 01/29/2016 Voided Arabella Trevino APRN 01/10/2016 Office visit 01/10/2016 Office visit Arabella Trevino APRN 12/24/2015 Office visit Rhett Nj MD 12/09/2015 Office visit Arabella Trevino APRN 11/16/2015 Office visit Arabella Trevino APRN 08/05/2015 Office visit Arabella Trevino APRN 05/20/2015 Office visit Arabella Trevino APRN
--- OUTSIDE RECORDS SUMMARY | 2017-12-28 09:40 | XMS REPORT | Continuity of Care Document ---
Author Author [facility] Organization [facility] Address [facility] [address] [phone] Phone Unavailable Support Name Relationship Address Phone IKE FOX MD Caregiver [address] [address] Unavailable JANEY DYE Caregiver [address] [place] [address] STEFFANIE HARKINS MD Caregiver [address] [address] Unavailable AC STOCK Next Of Kin Unknown Insurance Providers Payer Name Policy Number Subscriber Name Relationship Self Pay Insurance Harmony Orellana 18 Self / Same As Patient Advance Directives Directive Response Recorded Date/Time Do you have an Advanced Directive? No 04/04/12 7:34am Advance Directives No 04/13/13 6:46pm Living Will No 05/08/14 9:04am Health Care Proxy No 05/20/15 6:43pm Power of Radar Signal Processing Engineer for Health Care No 04/13/13 6:46pm Organ, Tissue, or Eye Donor No 04/13/13 6:46pm Do you have a signed organ donor card? No 11/24/12 10:04am Chief Complaint and Reason for Visit Chief Complaint CHEST PAIN Reason for Visit Cellulitis Allergic reaction Chest pain Problems Active Problems Medical Problem Onset Date Status Allergic reaction Unknown Acute Cellulitis Unknown Acute Chest pain Unknown Acute Spinal stenosis 11/10/2011 Acute Spinal stenosis Unknown Medications Current Home Medications Medication Dose Units Route Directions Days/Qty Instructions Start Date Tramadol Hcl 50 Mg 50 Mg Oral Four Times Daily Prn Pain 15 04/14/13 Topiramate 50 Mg 100 Mg Oral Twice A Day 30 FOR MIGRAINES 04/14/13 Rizatriptan Benzoate 10 Mg 10 Mg Oral Twice A Day 04/14/13 Levothyroxine Sodium 50 Mcg 50 Mcg Oral Daily 30 04/14/13 Gabapentin 100 Mg 100 Mg Oral Three Times A Day 90 04/14/13 Trazodone Hcl 300 Mg 150 Mg Oral Bedtime 04/15/13 Prednisone 20 Mg 40 Mg Oral Daily 10 05/20/15 Sulfamethoxazole/Trimethoprim* 1 Tab 1 Ea Oral Twice A Day 20 TAKE FOR 5 DAYS 05/20/15 Past Home Medications Medication Directions Ordered Status [Synthroid] , 03/08/10 Discontinued [Amoxicillin] , 03/08/10 Discontinued [Synthroid] , 1 Tab Oral Daily 07/17/10 Discontinued [Zoloft] , 1.5 Tab Oral Daily 07/17/10 Discontinued Acetaminophen/Hydrocodone Bitart 1 Tab Tablet, 1 Tab Oral Every 4 Hrs As Needed Pain 07/17/10 Discontinued Levothyroxine Sodium 100 Mcg Tablet, 25 Mcg Oral Daily 03/02/11 Discontinued Sertraline Hcl 100 Mg Tablet, 150 Mg Oral Daily 03/02/11 Discontinued Clonazepam 0.5 Mg Tablet, 0.5 Mg Oral As Needed 03/02/11 Discontinued Cyclobenzaprine Hcl 10 Mg Tablet, 10 Mg Oral Daily 03/02/11 Discontinued Tramadol Hcl 50 Mg Tablet, 50 Mg Oral Three Times A Day 03/02/11 Discontinued Topiramate 100 Mg Tablet, 100 Mg Oral Twice A Day 11/20/11 Discontinued Pravastatin Sodium 40 Mg Tablet, 40 Mg Oral Daily 11/20/11 Discontinued Trazodone Hcl 100 Mg Tablet, 100 Mg Oral Bedtime 11/20/11 Discontinued Carisoprodol 350 Mg Tablet, 350 Mg Oral Twice A Day 04/03/12 Discontinued Acetaminophen/Hydrocodone Bitart 1 Tab Tablet, 1 Tab Oral Twice A Day Discontinued Butalb/Acetaminophen/Caffeine 1 Each Capsule, 1 Each Oral Four Times Daily As Needed 04/03/12 Discontinued Aspirin 81 Mg Tablet., 1 Tab Oral Daily 04/04/12 Discontinued Acetaminophen 500 Mg Tablet, 500 Mg Oral Three Times Daily As Needed Discontinued Alprazolam 0.5 Mg Tablet, 1 Tab Oral Twice A Day 07/27/12 Discontinued Aspirin 325 Mg Tablet.dr 325 Mg Oral Daily 07/27/12 Discontinued Nitroglycerin 0.1 Mg/1 Hr Patch, 0.1 Mg Miscellaneous Daily 07/27/12 Discontinued Nitroglycerin 0.4 Mg/1 Tab Subl, 0.4 Mg Miscellaneous 07/27/12 Discontinued Gabapentin 100 Mg Capsule, 100 Mg Oral Three Times A Day 02/06/13 Discontinued Omeprazole 20 Mg Capsule.dr, 20 Mg Oral Twice A Day 11/30/12 Discontinued Sucralfate 1 G Tablet, 1 Gm Oral Four Times Daily 11/30/12 Discontinued Tizanidine Hcl 4 Mg Capsule, 4 Mg Oral Bedtime 04/14/13 Discontinued [Thyroxine] , 100 Mcg Daily 04/14/13 Discontinued Carisoprodol 350 Mg Tablet, 350 Mg Oral Three Times A Day 04/14/13 Discontinued Social History Social History Problem Response Recorded Date/Time Smoking Status Current every day smoker 04/13/2013 6:46pm Alcohol Use none 05/20/2015 7:45pm Drug Use none 05/20/2015 7:45pm Query Response Start Date Stop Date Smoking Status Current every day smoker Hospital Discharge Instructions No hospital discharge instructions. Plan of Care Discharge Date 05/20/15 9:30pm Condition at Discharge Stable Instructions/Education Provided Cellulitis (ED) General Allergic Reaction (ED) Prescriptions See Medication Section Referrals JANEY DYE - 2-3 Days Functional Status Query Response Date Recorded Tl Coma Scale Total 15 May 20, 2015 7:15pm Patient Behavior Cooperative Appropriate May 20, 2015 7:15pm Allergies, Adverse Reactions, Alerts Allergen Type Severity Reaction Status Last Updated MOXIFLOXACIN HCL Allergy Unknown DIFFICULTY BREATHING Active 07/30/14 DULOXETINE HCL Allergy Unknown DIARRHEA Active 07/30/14 Ibuprofen Allergy Unknown Active 07/30/14 Immunizations Name Given Type Hx Diphtheria, Pertussis, Tetanus Vaccination Unknown Historical Hx Influenza Vaccination No Historical Hx Pneumococcal Vaccination No Historical Vital Signs Acute Vital Signs Vital Response Date/Time Temperature (Fahrenheit) 97.3 degrees F (97.6 - 99.5) 05/20/2015 9:21pm Temperature Source Temporal Artery 05/20/2015 9:21pm Pulse Rate (adult) 72 bpm (60 - 90) 05/20/2015 9:21pm Respiratory Rate 18 bpm (12 - 24) 05/20/2015 9:21pm Blood Pressure 111/79 mm Hg 05/20/2015 9:21pm O2 Sat by Pulse Oximetry 95 % (90 - 100) 05/20/2015 9:21pm Oxygen Delivery Method 05/20/2015 9:21pm Pain Intensity 3 05/20/2015 9:30pm Pain Location Body Site Modifier 05/20/2015 9:30pm Pain Description 05/20/2015 9:30pm Pain Duration 2 DAYS 05/20/2015 9:30pm Height 5 ft 2 in Weight 176 lb Body Mass Index 32.0 kg/m^2 Results Laboratory Results Test Name Result Units Flags Reference Collection Date/Time Result Date/ Time Comments White Blood Count 12.9 K/uL H 4.8-10.8 05/20/2015 7:1005/20/2015 8: 04pm Red Blood Count 4.83 M/uL 4.20-5.40 05/20/2015 7:1005/20/2015 8: 04pm Hemoglobin 15.2 gm/dL 12.0-16.0 05/20/2015 7:05/20/2015 8:04pm Hematocrit 44.9 % 37.0-47.0 05/20/2015 7:05/20/2015 8:04pm Mean Corpuscular Volume 92.9 fL 81.0-99.0 05/20/2015 7:05/20/2015 8:04pm Mean Corpuscular Hemoglobin 31.6 pg H 27.0-31.0 05/20/2015 7:2014 8:04pm Mean Corpuscular Hemoglobin Concent 34.0 g/dL 30.0-37.0 05/20/2015 7: 05/20/2015 8:04pm Red Cell Distribution Width 13.6 % 11.5-14.5 05/20/2015 7:2014 8:04pm Platelet Count 315 K/uL 130-400 05/20/2015 7:05/20/2015 8:04pm Mean Platelet Volume 8.7 fL 7.4-10.4 05/20/2015 7:05/20/2015 8: 04pm Neutrophils (%) (Auto) 38.6 % L 42.2-75.2 05/20/2015 7:05/20/2015 8 :04pm Lymphocytes (%) (Auto) 53.3 % H 20.5-51.1 05/20/2015 7:05/20/2015 8 :04pm Monocytes (%) (Auto) 4.7 % 1.7-9.3 05/20/2015 7:05/20/2015 8:04pm Eosinophils (%) (Auto) 2.3 % 0-3 05/20/2015 7:1005/20/2015 8:04pm Basophils (%) (Auto) 1.2 % H 0.0-1.0 05/20/2015 7:1005/20/2015 8: 04pm Neutrophils # (Auto) 5.0 K/uL 2.0-6.9 05/20/2015 7:10pm 05/20/2015 8: 04pm Lymphocytes # (Auto) 6.9 K/uL H 1.2-3.4 05/20/2015 7:1005/20/2015 8: 04pm Monocytes # (Auto) 0.6 K/uL 0.1-0.6 05/20/2015 7:10pm 05/20/2015 8: 04pm Eosinophils # (Auto) 0.3 K/uL 0.0-0.7 05/20/2015 7:10pm 05/20/2015 8: 04pm Basophils # (Auto) 0.2 K/uL 0.0-0.2 05/20/2015 7:1005/20/2015 8: 04pm Random Glucose 89 mg/dL 70-110 05/20/2015 8:11pm 05/20/2015 8:47pm Blood Urea Nitrogen 10 mg/dL 7-18 05/20/2015 8:1105/20/2015 8:47pm Creatinine 1.4 mg/dL H 0.6-1.0 05/20/2015 8:11pm 05/20/2015 8:47pm Sodium Level 137 mEq/L 136-145 05/20/2015 8:1105/20/2015 8:47pm Potassium Level 3.4 mEq/L L 3.5-5.0 05/20/2015 8:11pm 05/20/2015 8:47pm Chloride Level 102 mEq/L 98-107 05/20/2015 8:11pm 05/20/2015 8:47pm Carbon Dioxide Level 26.4 mEq/L 21-32 05/20/2015 8:1105/20/2015 8: 47pm Calcium Level 8.0 mg/dL L 8.8-10.5 05/20/2015 8:1105/20/2015 8:47pm Creatine Kinase MB 4.6 NG/ML H 0-3.6 05/20/2015 8:11pm 05/20/2015 8: 47pm Myoglobin 119.0 NG/ML H 10.5-92.5 05/20/2015 8:11pm 05/20/2015 8:47pm Troponin I 0.0 NG/ML 0.0-0.2 05/20/2015 8:11pm 05/20/2015 8:47pm Glomerular Filtration Rate Calc 43.2 mL/min 05/20/2015 8:11pm 2014 8:47pm Procedures Procedure Status Date Provider(s) Portable x-ray of chest Completed 05/20/15 IKE FOX MD Encounters Encounter Location Arrival/Admit Date Discharge/Depart Date Attending Provider Departed Emergency Room [place] 05/20/15 6:36pm 05/20/15 9:30pm STEFFANIE HARKINS MD Recent Diagnosis
--- OUTSIDE RECORDS SUMMARY | 2017-12-28 09:40 | XMS REPORT ---
Author Author Geeta Gray [facility] Address [address] [place], [place] [address] Care Team Providers Care Hotel Superintendent Name Role Phone Geeta Gray PCP Unavailable Allergies and Adverse Reactions Name [...] intramuscular route once as needed for anaphylaxis Prozac 20 mg oral capsule 12/09/2015 06/06/2016 take 2 capsules by oral route daily topiramate 100 mg oral tablet 03/21/2016 2016 take 1 tablet (100 mg) by oral route 2 for 30 days gabapentin 800 mg oral tablet 05/06/2016 08/04/2016 take 1 tablet (800 mg) by oral route 3 for 30 days Nature-Throid 130 mg oral tablet 05/06/2016 05/01/2017 take 1 tablet (130 mg) by oral route once daily before breakfast for 90 days Protonix 40 mg oral tablet,delayed release (DR/EC) 05/06/2016 05/01/2017 take 1 tablet (40 mg) by oral route once daily for 90 days potassium chloride 20 mEq oral tablet [...] every 12 hours for 10 days [employer] Thyroid 90 mg oral tablet 08/05/2015 11/03/2015 take 1 tablet by oral route daily for 90 days cyclobenzaprine 10 mg oral tablet 01/10/2016 02/09/2016 take 1 tablet (10 mg) by oral route 3 for 30 days tramadol 50 mg oral tablet 01/10/2016 02/09/2016 take 2 tablets (100 mg) by oral route every 6 hours as needed for 30 days Discontinued Name Start Date Discontinued Date [...] at least 60 minutes. for 30 days Problem List Description Status Onset Anxiety and depression Active Chronic back pain greater than 3 months duration Active arthritis Active Hallucinations Active Heart Attack Active 2013 Kidney stone Active Osteoporosis Active Thyroid disorder Active Depression Active Dizziness Active Anxiety Active Tingling in extremities Active Vital Signs Date Time BP-Sys(mm[Hg] BP-Lakshmi(mm[Hg]) HR(bpm) RR(rpm) Temp WT HT HC BMI BSA BMI Percentile O2 Sat(%) 05/06/2016 1:41:00 PM 110 mmHg 70 mmHg [...] 05/06/2016 12:00 AM ASSAY OF MAGNESIUM Returned 05/20/2015 12:00 AM ELECTROCARDIOGRAM COMPLETE Returned [...] 9.0 mg/dLCREATININE 1.0 mg/dLCALCIUM 8.50 mg/dLeGFR 60 History Of Immunizations Name Date Admin Mfg Name Mfg Code Trade Name Lot# Route Inj Vis Given Vis Pub CVX Tdap 01/10/2016 [employer]iePics SKB BOOSTRIX [id number] Intramuscular Left Arm 01/10/2016 03/02/2013 115 History of Past Illness Name Date of Onset Comments Anxiety arthritis Depression Dizziness Fractured bone Headache Heart Attack 2013 Kidney stone Osteoporosis Tingling in extremities Thyroid disorder Weight Change Chronic back pain greater than 3 months duration Hallucinations Anxiety and depression Chest pain of uncertain etiology May 20 [...] 3 months duration Feb 13 2016 2:37PM Payers Insurance Name Company Name Plan Name Plan Number Policy Number Policy Group Number Start Date BCBS [facility] [id number] N/A [employer]/ OEFI [employer] [id number] Wednesday, 2015 History of Encounters Visit Date Visit Type Provider 05/08/2016 Laboratory Geeta Gray APRN 05/06/2016 Office visit Arabella Trevino APRN 02/13/2016 Voided Arabella Trevino APRN 01/29/2016 Office visit Arabella Trevino APRN 01/10/2016 Office visit 01/10/2016 Office visit Arabella Trevino APRN 12/24/2015 Office visit Rhett Nj MD 12/09/2015 Office visit Arabella Trevino APRN 11/16/2015 Office visit Arabella Trevino APRN 08/05/2015 Office visit Arabella Trevino APRN 05/20/2015 Office visit Arabella Trevino APRN
--- OUTSIDE RECORDS SUMMARY | 2017-12-28 09:41 | XMS REPORT ---
Author Arabella Bran Organization [facility] Address [address] [place], [place] [id number] Care Team Providers Care Manager Implementation Name Role Phone Arabella Trevino PCP Unavailable [...] route every 12 hours for 10 days PREP COOK Thyroid 90 mg oral tablet 08/05/2015 11/03/2015 [...] pg/mL History Of Immunizations Name Date Admin [facility] Name g Code Trade Name Lot# Route Inj Vis Given Vis Pub CVX Tdap 01/10/2016 Fleep SKB BOOSTRIX [id number] Intramuscular Left Arm 01/10/2016 [...] 30 2016 2:24PM Coronary artery disease involving [place] heart without angina pectoris, unspecified vessel or lesion type Dec 30 2016 2:24PM Payers Insurance Name Company Name Plan Name Plan Number Policy Number Policy Group Number Start Date BCBS Bcbs [facility] [id number] N/A [employer]/ [employer]/ [employer] [id number] Wednesday, 2015 History of Encounters Visit Date [...]
--- OUTSIDE RECORDS SUMMARY | 2017-12-28 09:41 | XMS REPORT | Continuity of Care Document ---
Author Author [facility] Organization [facility] Address [facility] [address] [place] [id number] Phone Unavailable Support Name Relationship Address Phone MARIANNA MCLAUGHLIN MD Caregiver [address] [place] [address] Unavailable JANEY DYE/ABDELRAHMAN THOMAS Caregiver [address] [place] [address] [employer] Next Of Kin Unknown Insurance Providers Payer Name Policy Number Subscriber Name Relationship Blue Cross/Blue Shield [id number] Tiffany Orellana 17 Self / Same As Patient Advance Directives Directive Response Recorded Date/Time Do you have an Advanced Directive? No 04/04/12 7:34am Advance Directives No 08/03/16 9:45am Living Will No 08/03/16 9:45am Health Care Proxy No 02/28/17 7:35pm Power of Embroidery Machine Operator for Health Care No 08/03/16 9:45am Organ, Tissue, or Eye Donor Yes 08/03/16 9:45am Do you have a signed organ donor card? Yes 12/09/16 8:30am Chief Complaint and Reason for Visit Chief Complaint RIB PAIN Reason for Visit [id number] Problems Active Problems Medical Problem Onset Date Status Allergic reaction Unknown Acute Cellulitis Unknown Acute Chest pain Unknown Acute Chronic back pain Unknown Acute Fatigue Unknown Acute Lumbar back pain with radiculopathy affecting right lower extremity Unknown Acute Lumbar strain Unknown Acute Rib pain on left side Unknown Acute Spinal stenosis 11/10/2011 Acute Spinal stenosis Unknown Medications Current Home Medications Medication Dose Units Route Directions Days/Qty Instructions Start Date Tramadol Hcl 50 Mg 50 Mg Oral Four Times Daily Prn Pain 04/14/13 Topiramate 50 Mg 100 Mg Oral Twice A Day 30 FOR MIGRAINES 04/14/13 Cyclobenzaprine Hcl (Flexeril*) 10 Mg 10 Mg Oral Three Times A Day as needed for Muscle Spasms 15 05/21/15 Gabapentin 800 Mg 800 Mg Oral Three Times A Day 02/13/16 Fluoxetine Hcl 40 Mg 40 Mg Oral Daily 02/13/16 Thyroid,Pork 260 Mg 130 Mg Oral Bedtime 02/13/16 Epinephrine 0.3 Mg/0.3 Syringe 0.3 Mg Intramusc as needed for Anaphylaxis 05/05/16 [Hydroxyzine Pamoate] 1 Tab Oral Daily 05/05/16 Benztropine Mesylate 1 Mg 1 Mg Oral Daily 05/05/16 Lurasidone Hcl 60 Mg 60 Mg Oral Bedtime 05/05/16 Cholecalciferol (Vitamin D3) 10,000 Unit 10,000 Units Oral Daily 10/09 Calcium Carbonate/Vitamin D3 1 Each 500 Mg Oral Daily 05/05/16 Baclofen 10 Mg 10 Mg Oral Three Times Daily As Needed 15 05/12/16 Oxycodone Hcl/Acetaminophen 10-325 Mg 1 Tab 1 Tab Oral Every 6 Hours As Needed 05/12/16 Past Home Medications Medication Directions Ordered Status [...] As Needed 04/03/12 Discontinued Aspirin 81 Mg Tablet.dr, 1 Tab Oral Daily 04/04/12 Discontinued Acetaminophen 500 Mg Tablet, 500 Mg Oral Three Times Daily As Needed Discontinued Alprazolam 0.5 Mg Tablet, 1 Tab Oral Twice A Day 07/27/12 Discontinued Aspirin 325 Mg Tablet.dr, 325 Mg Oral Daily 07/27/12 Discontinued Nitroglycerin 0.1 Mg/1 Hr Patch, 0.1 Mg Miscellaneous Daily 07/27/12 Discontinued Nitroglycerin 0.4 Mg/1 Tab Subl, 0.4 Mg Miscellaneous 07/27/12 Discontinued Gabapentin 100 Mg Capsule, 100 Mg Oral Three Times A Day 11/30/12 Discontinued Omeprazole 20 Mg Capsule.dr, 20 Mg Oral Twice A Day 11/30/12 Discontinued Sucralfate 1 G Tablet, 1 Gm Oral Four Times Daily 11/30/12 Discontinued Tizanidine Hcl 4 Mg Capsule, 4 Mg Oral Bedtime 04/14/13 Discontinued [Thyroxine] , 100 Mcg Daily 04/14/13 Discontinued Rizatriptan Benzoate 10 Mg Tab.rapdis, 10 Mg Oral Twice A Day 04/14/13 Discontinued Levothyroxine Sodium 50 Mcg Tablet, 50 Mcg Oral Daily 04/14/13 Discontinued Gabapentin 100 Mg Capsule, 100 Mg Oral Three Times A Day 04/14/13 Discontinued Carisoprodol 350 Mg Tablet, 350 Mg Oral Three Times A Day 04/14/13 Discontinued Trazodone Hcl 300 Mg Tablet, 150 Mg Oral Bedtime 04/15/13 Discontinued Prednisone 20 Mg Tablet, 40 Mg Oral Daily 05/20/15 Discontinued Sulfamethoxazole/Trimethoprim* 1 Tab Tablet, 1 Ea Oral Twice A Day 05/20/15 Discontinued Citalopram Hydrobromide 40 Mg Tablet, 40 Mg Oral Daily 05/21/15 Discontinued Acetaminophen/Hydrocodone Bitart (Lortab 5-325*) 1 Tab Tablet, 1 Each Oral Every 4-6 Hrs As Needed Pain for Pain 02/13/16 Discontinued Prednisone 20 Mg Tablet, 60 Mg Oral Daily 02/13/16 Discontinued Cyclobenzaprine Hcl (Flexeril*) 10 Mg Tablet, 10 Mg Oral Three Times A Day as needed for Muscle Spasms 02/13/16 Discontinued Social History Social History Problem Response Recorded Date/Time Smoking Status Current every day smoker 08/03/2016 9:45am Tobacco Use Cigarettes 02/13/2016 4:45pm Sexual History Heterosexual 02/13/2016 4:45pm Query Response Start Date Stop Date Smoking Status Current every day smoker Hospital Discharge Instructions No hospital discharge instructions. Plan of Care Discharge Date 02/28/17 9:17pm Condition at Discharge Improved Instructions/Education Provided Rib Contusion (ED) Prescriptions See Medication Section Referrals JANEY DYE/WILLIAM QUICK - 2-3 Days Functional Status Query Response Date Recorded Tl Coma Scale Total 15 February 28, 2017 7:35pm Patient Behavior Cooperative Appropriate February 28, 2017 7:35pm Allergies, Adverse Reactions, Alerts Allergen Type Severity Reaction Status Last Updated MOXIFLOXACIN HCL Allergy Unknown DIFFICULTY BREATHING Active 02/13/16 DULOXETINE HCL Allergy Unknown DIARRHEA Active 02/13/16 Ibuprofen Allergy Unknown Active 02/13/16 Risperidone Allergy Unknown Active 02/13/16 AUGEMENTIN Allergy Unknown Active 02/28/17 CEDAR Allergy Unknown "closes airway" Active 05/05/16 Immunizations Name Given Type Hx Diphtheria, Pertussis, Tetanus Vaccination Up To Date Historical Hx Influenza Vaccination N DOES NOT TAKE Historical Hx Pneumococcal Vaccination N Pt declines Historical Vital Signs Acute Vital Signs Vital Response Date/Time Temperature (Fahrenheit) 98.3 degrees F (97.6 - 99.5) 02/28/2017 7:35pm Temperature Source Temporal Artery 02/28/2017 7:35pm Pulse Rate (adult) 97 bpm (60 - 90) 02/28/2017 7:35pm Respiratory Rate 18 bpm (12 - 24) 02/28/2017 7:35pm Blood Pressure 99/69 mm Hg 02/28/2017 7:35pm O2 Sat by Pulse Oximetry 98 % (90 - 100) 02/28/2017 7:35pm Oxygen Delivery Method 02/28/2017 7:35pm Pain Intensity 5 01/13/2017 10:20am Pain Location Body Site Modifier Lateral 02/28/2017 8:20pm Height 5 ft 2 in Weight 187 lb Body Mass Index 34.0 kg/m^2 Results No known relevant diagnostic tests, laboratory data and/or discharge summary. Procedures Procedure Status Date Provider(s) Computed tomography of lumbar spine without contrast Active 12/09/16 Genaro Gong MD X-ray of left ribs, three or more views including chest x-ray Completed 02/28 MARIANNA MCLAUGHLIN MD Encounters Encounter Location Arrival/Admit Date Discharge/Depart Date Attending Provider Departed Emergency Room [place] 02/28/17 7:30pm 02/28/17 9:17pm MARIANNA MCLAUGHLIN MD Registered [facility] 01/11/17 11:26am GongGenaro MD Registered [facility] 12/09/16 8:33am GongGenaro MD Recent Diagnosis
--- OUTSIDE RECORDS SUMMARY | 2017-12-28 09:41 | XMS REPORT ---
Author Author Arabella Trevino Organization [facility] Address [address] [place], [place] [id number] Care Team Providers Care Red Cross Worker Name Role Phone Arabella Trevino PCP Unavailable Allergies and Adverse Reactions Name Reaction Notes ibuprofen Augmentin Plan of Treatment Not available. Medications Active Name Start Date Estimated Completion Date SIG Comments gabapentin oral tablet 800 mg take 1 tablet (800 mg) by oral route 3 times per day citalopram oral tablet 40 mg take 1 tablet (40 mg) by oral route once daily tramadol oral tablet 50 mg take 2 tablets (100 mg) by oral route every 6 hours as needed cyclobenzaprine oral tablet 10 mg take 1 tablet (10 mg) by oral route 3 times per day topiramate oral tablet 100 mg take 1 tablet (100 mg) by oral route 2 times per day epinephrine injection auto-injector 0.3 mg/0.3 mL (1:1,000) inject 0.3 milliliter (0.3 mg) by intramuscular route once as needed for anaphylaxis levothyroxine oral tablet 150 mcg 05/20/2015 05/14/2016 take 1 tablet (150 mcg ) by oral route once daily Problem List Not available. Vital Signs Date Time BP-Sys(mm[Hg] BP-Lakshmi(mm[Hg]) HR(bpm) RR(rpm) Temp WT HT HC BMI BSA BMI Percentile O2 Sat(%) 05/20/2015 5:06:00 PM 108 mmHg 86 mmHg 82 bpm 20 rpm 97.2 F 177.125 lbs 62 in 32.40 kg/m2 1.87 m2 98 % Social History Name Description Comments Tobacco Current every day smoker Alcohol History of Procedures Not available. Results Summary Not available. History Of Immunizations Not available. History of Past Illness Name Date of Onset Comments Anxiety arthritis Depression Dizziness Fractured bone Headache Heart Attack Kidney stone Osteoporosis Tingling in extremities Thyroid disorder Weight Change Chest pain of uncertain etiology May 20 2015 5:22PM Short of breath on exertion May 20 2015 5:22PM Orthopnea May 20 2015 5:22PM Cellulitis of face May 20 2015 5:22PM Payers Insurance Name Company Name Plan Name Plan Number Policy Number Policy Group Number Start Date [employer]/ OEFI [employer]/ [employer]EFI [id number] Wednesday, 2015 History of Encounters Visit Date Visit Type Provider 05/20/2015 Office visit Arabella Trevino APRN
--- OUTSIDE RECORDS SUMMARY | 2017-12-28 09:42 | XMS REPORT ---
Author Arabella Bran Organization [facility] Address [address] [place], [place] [id number] Care Team Providers Care Library Aide Name Role Phone Arabella Trevino PCP Unavailable [...] anaphylaxis epinephrine 0.3 mg/0.3 mL injection auto-injector inject [...] once weekly tramadol 50 mg oral tablet 12/30/2016 03/30/2017 take 1 tablet by oral route 3 times a day for 30 days baclofen 10 mg oral tablet 02/26/2017 05/27/2017 take 1 tablet (10 mg) by oral route 3 for 30 days Name Start Date Expiration Date SIG Comments Flonase Allergy Relief 50 mcg/actuation nasal spray,suspension 08/05/201512/03 inhale 1 puff by nasal route daily for 30 days amoxicillin 500 mg oral tablet 08/05/2015 08/15/2015 take 2 tablets by oral route every 12 hours for 10 days 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 90 mg oral tablet 08/05/2015 11/03/2015 [...] 3 times per day for 10 days simvastatin 20 mg oral tablet 08/12/2016 [...] as needed for anaphylaxis for 1 day gabapentin 800 mg oral tablet 11/17/2016 02/15/2017 take 1 tablet (800 mg) by oral route 3 for 30 days Discontinued Name Start Date [...] HC BMI BSA BMI Percentile O2 Sat(%) 03/01/2017 3:15:00 PM 102 mmHg 80 mmHg [...] AUTO W/O MICROSCOPY Reviewed 03/01/2017 12:00 AM ASSAY OF FREE THYROXINE Reviewed 03/01/2017 12:00 AM FREE ASSAY (FT-3) Reviewed 03/01/2017 12:00 AM COLLECTION VENOUS BLOOD VENIPUNCTURE Reviewed 05/20/2015 12:00 AM ELECTROCARDIOGRAM COMPLETE Reviewed [...] MICRO INDICATED? NOT INDICATED Triiodothyronine,Free,Serum 2.60 pg/mL History Of Immunizations Name Date Admin Mfg Name Mfg Code Trade Name Lot# Route Inj Vis Given Vis Pub CVX Tdap 01/10/2016 [employer] SKB BOOSTRIX [id number] Intramuscular Left Arm 01/10/2016 [...] 30 2016 2:24PM Coronary artery disease involving [place] heart without angina pectoris, unspecified vessel or lesion type Dec 30 2016 2:24PM Hyperlipidemia, unspecified Mar 01 2017 3:22PM Hypothyroidism, Acquired Mar 01 2017 3:22PM Lumbar radicular pain Mar 01 2017 3:22PM Costochondritis, acute Mar 01 2017 3:22PM Payers Insurance Name Company Name Plan Name Plan Number Policy Number Policy Group Number Start Date BCBS [facility] [id number] N/A [employer]/ OEFI Global[employer]/ OEFI [id number] Wednesday, 2015 History of Encounters Visit Date Visit Type Provider 03/01/2017 Office visit Arabella Trevino APRN 12/30/2016 Office visit Arabella Trevino BENDING SHED WORKER 10/27/2016 Office visit Arabella Trevino BENDING SHED WORKER 10/02/2016 Office visit Arabella Trevino BENDING SHED WORKER 08/12/2016 Office visit Arabella Trevino BENDING SHED WORKER 05/19/2016 Office visit Arabella Trevino APRN 05/08/2016 Laboratory Geeta [place] [facility] 05/06/2016 Office visit Arabella Trevino APRN [...]
--- OUTSIDE RECORDS SUMMARY | 2017-12-28 09:43 | XMS REPORT ---
Author Author Arabella Trevino Organization [facility] Address [address] [place], [place] [id number] Care Team Providers Care Clinical Data Associate Name Role Phone Arabella Trevino PCP , [...] CAD and worsening fatigue 07/20/2017 2:00 PM Medications Active Name Start Date Estimated Completion Date SIG Comments hydroxyzine pamoate 25 mg oral capsule take 1 capsule (25 mg) by oral route 3 times per day benztropine 1 mg oral tablet take 1 [...] by oral route 3 times per day aripiprazole 10 mg oral tablet take 1 tablet (10 mg) by oral route once daily levothyroxine 200 mcg oral tablet take 1 tablet (200 mcg) by oral route once daily cefdinir 300 mg oral capsule 10/07/2017 take 1 capsule (300 mg) by oral route every 12 hours for 10 days atorvastatin 20 mg oral tablet 10/07/2017 take 1 tablet (20 mg) by oral route once daily at bedtime for 90 days Name Start Date Expiration Date SIG Comments Flonase Allergy Relief 50 mcg/actuation nasal spray,suspension 08/05/201512/03 inhale 1 puff by nasal route daily for 30 days amoxicillin 500 mg oral tablet 08/05/2015 08/15/2015 take 2 tablets by oral route every 12 hours for 10 days 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 90 mg oral tablet 08/05/2015 11/03/2015 [...] once daily before breakfast for 90 days Discontinued Name Start Date Discontinued Date [...] HC BMI BSA BMI Percentile O2 Sat(%) 10/07/2017 2:21:00 PM 100 mmHg 70 mmHg 96 bpm 18 rpm 98.6 F 208.375 lbs 62 in 38.11 kg/m2 2.03 m2 99 % 08/13/2017 9:51:00 AM 98 mmHg 80 mmHg 84 bpm 18 rpm 96.4 F 201.5 lbs 62 in 36.8545 kg/m 1.9996 m 97 % 07/14/2017 11:17:00 AM 102 mmHg 66 mmHg 78 bpm 18 rpm 96.6 F 186.25 lbs 62 in 34.07 kg/m2 1.92 m2 99 % 06/11/2017 8:56:00 AM 110 mmHg 78 mmHg 75 bpm 18 rpm 96.5 F 183 lbs 62 in 33.4708 kg/m 1.9056 m 98 % 05/19/2017 10:51:00 AM 128 mmHg 84 mmHg 88 bpm 20 rpm 96.5 F 172.25 lbs 62 in 31.50 kg/m2 1.85 m2 98 % 04/22/2017 4:46:00 PM 104 mmHg 78 mmHg 84 bpm 18 rpm 97.4 F 170.375 lbs 62 in 31.1617 kg/m 1.8386 m 97 % 04/06/2017 2:06:00 PM 126 mmHg 70 mmHg 98 bpm 20 rpm 97.9 F 172.25 lbs 62 in 31.50 kg/m2 1.85 m2 97 % 03/01/2017 3:15:00 PM 102 mmHg 80 mmHg 79 bpm 16 rpm 97.8 F 168.25 lbs 62 in 30.773 kg/m 1.8271 m 100 % 12/30/2016 2:17:00 PM 90 mmHg [...] >60 mL/min/1.73meGFR AA* >60 Triiodothyronine,Free,Serum 2.50 pg/mL History Of Immunizations Name Date Admin Mfg Name Mfg Code Trade Name Lot# Route Inj Vis Given Vis Pub CVX Tdap 01/10/2016 [employer] SKB BOOSTRIX [id number] Intramuscular Left Arm 01/10/2016 [...] 30 2016 2:24PM Coronary artery disease involving [place] heart without angina pectoris, unspecified vessel or [...] 10:05AM Acute sinusitis Oct 07 2017 2:33PM Payers Insurance Name Company Name Plan Name Plan Number Policy Number Policy Group Number Start Date BCBS [facility] [id number] N/A [employer]/ OEFI [employer]/ OEFI [id number] Wednesday, 2015 History of Encounters Visit Date Visit Type Provider 10/07/2017 Office visit Arabella Trevino APRN 08/13/2017 Office visit Arabella Trevino PRODUCTION SUPV 07/14/2017 Office visit Arabella Trevino PRODUCTION SUPV 06/11/2017 Hospital Maegan Oliver MD 06/11/2017 Office visit Arabella Trevino PRODUCTION SUPV 05/19/2017 Office visit Geeta Gray PRODUCTION SUPV 04/22/2017 Office visit Arabella Trevino PRODUCTION SUPV 04/21/2017 Laboratory Tavares Peck PRODUCTION SUPV 04/06/2017 Office visit Geeta Gray PRODUCTION SUPV 03/01/2017 Office visit Arabella Trevino APRN 12/30/2016 Office visit Arabella Trevino PRODUCTION SUPV 10/27/2016 Office visit Arabella Trevino PRODUCTION SUPV 10/02/2016 Office visit Arabella Trevino PRODUCTION SUPV 08/12/2016 Office visit Arabella Trevino PRODUCTION SUPV 05/19/2016 Office visit Arabella Trevino APRN 05/08/2016 Laboratory Geeta Gray PRODUCTION SUPV 05/06/2016 Office visit Arabella Trevino PRODUCTION SUPV 02/13/2016 Office visit Arabella Tervino APRN 01/29/2016 Voided Arabella Trevino PRODUCTION SUPV 01/10/2016 Office visit 01/10/2016 Office visit Arabella Trevino PRODUCTION SUPV 12/24/2015 Office visit Rhett Nj MD 12/09/2015 Office visit Arabella Trevino APRN 11/16/2015 Office visit Arabella Trevino APRN 08/05/2015 Office visit Arabella Trevino APRN 05/20/2015 Office visit Arabella Trevino APRN
--- OUTSIDE RECORDS SUMMARY | 2017-12-28 09:44 | XMS REPORT ---
Author Author Arabella Trevino Organization [facility] Address [address] [place], [place] [address] Care Team Providers Care Superintendent Of Schools Name Role Phone Arabella Trevino PCP Unavailable , blue stem Unavailable Unavailable Arabella Trevino Unavailable Unavailable Arabella Trevino PreferredProvider Unavailable Allergies [...] COMP MIN 2 VIEWS 10/27/2016 12:00 AM TSH 06/11/2017 12:00 AM T4, Free 06/11/2017 12:00 AM T3 free 06/11/2017 12:00 AM VITAMIN D (25 HYDROXY) 06/11/2017 12:00 AM EKG (12-lead electrocardiogram) 06/11/2017 12:[address] HEAD W/WO CONTRAST 06/11/2017 12:00 AM abd bloating and abd pain [...] (1 mg) by oral route once daily rizatriptan 10 mg oral tablet take 1 tablet (10 mg) by oral route once, may repeat at 2 hour intervals; do not exceed 30 mg in 24 hours Nature-Throid 146.25 mg oral tablet 04/06/2017 10/03/2017 take 1 tablet ( 146.25 mg) by oral route once daily before breakfast for 90 days nicotine 21 mg/24 hr transdermal patch 24 hour 04/15/2017 07/14/2017 apply 1 patch (21 mg) by transdermal route once daily for 30 days fluoxetine 40 mg oral capsule take 1 capsule by oral route 3 times a day aripiprazole 5 mg oral tablet take 1 tablet (5 mg) by oral route once daily pantoprazole 40 mg oral tablet,delayed release (DR/EC) 05/11/2017 TAKE ONE TABLET BY MOUTH DAILY gabapentin 800 mg oral tablet 06/11/2017 09/09/2017 take 1 tablet by oral route 2 times a day for 30 days tramadol 50 mg oral tablet 06/11/2017 07/11/2017 take 1 tablet by oral route 2 times a day for 30 days mupirocin 2 % topical ointment 06/11/2017 06/25/2017 apply a small amount to the affected area by topical route 3 times per day for 14 days atorvastatin 20 mg oral tablet 06/11/2017 12/08/2017 take 1 tablet (20 mg) by oral route once daily at bedtime for 90 days Name Start Date Expiration Date SIG Comments Flonase Allergy Relief 50 mcg/actuation nasal spray,suspension 08/05/201512/03 inhale 1 puff by nasal route daily for 30 days amoxicillin 500 mg oral tablet 08/05/2015 08/15/2015 take 2 tablets by oral route every 12 hours for 10 days 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 90 mg oral tablet 08/05/2015 11/03/2015 [...] 000 unit) by oral route once weekly ondansetron 4 mg oral tablet,disintegrating 06/11/2017 place 2 tablets (8 mg) on top of the tongue where they will dissolve, then swallow by translingual route 1-2 hours prior to radiation therapy Problem List Description Status Onset Anxiety and depression Active Chronic back pain greater than 3 months duration Active arthritis Active Hallucinations Active Heart Attack Active 2013 Kidney stone Active Osteoporosis Active Thyroid disorder Active Depression Active Dizziness Active Anxiety Active Tingling in extremities Active Vital Signs Date Time BP-Sys(mm[Hg] BP-Lakshmi(mm[Hg]) HR(bpm) RR(rpm) Temp WT HT HC BMI BSA BMI Percentile O2 Sat(%) 06/11/2017 8:56:00 AM 110 mmHg 78 mmHg [...] AUTO W/SCOPE Reviewed 06/11/2017 12:00 AM ASSAY OF MAGNESIUM Reviewed 05/20/2015 12:00 AM ELECTROCARDIOGRAM COMPLETE Reviewed [...] 0.44 #BASO 0.07 MANUAL DIFF NOT IND History Of Immunizations Name Date Admin Mfg Name Mfg Code Trade Name Lot# Route Inj Vis Given Vis Pub CVX Tdap 01/10/2016 [employer] SKB BOOSTRIX [id number] Intramuscular Left Arm 01/10/2016 [...] 30 2016 2:24PM Coronary artery disease involving [place] heart without angina pectoris, unspecified vessel or [...] 9:12AM Abnormal EKG Jun 11 2017 9:12AM Payers Insurance Name Company Name Plan Name Plan Number Policy Number Policy Group Number Start Date BCBS [facility] [place] [id number] N/A [employer]/ OEFI [employer]/ OEFI [id number] Wednesday, 2015 History of Encounters Visit Date Visit Type Provider 06/11/2017 Office visit Arabella Trevino DOOR SLINGER 05/19/2017 Office visit Geeta Gray DOOR SLINGER 04/22/2017 Office visit Arabella Trevino DOOR SLINGER 04/21/2017 Laboratory Tavares Peck DOOR SLINGER 04/06/2017 Office visit Geeta Gray DOOR SLINGER 03/01/2017 Office visit Arabella Trevino APRN 12/30/2016 Office visit Arabella Trevino APRN 10/27/2016 Office visit Arabella Trevino APRN 10/02/2016 Office visit Arabella Trevino APRN 08/12/2016 Office visit Arabella Trevino APRN 05/19/2016 Office visit Arabella Trevino DOOR SLINGER 05/08/2016 Laboratory Geeta Gray DOOR SLINGER 05/06/2016 Office visit Arabella Trevino APRN 02/13/2016 Office visit Arabella Trevino APRN 01/29/2016 Voided Arabella Trevino APRN 01/10/2016 Office visit 01/10/2016 Office visit Arabella Trevino APRN 12/24/2015 Office visit Rhett Nj MD 12/09/2015 Office visit Arabella Trevino APRN 11/16/2015 Office visit Arabella Trevino APRN 08/05/2015 Office visit Arabella Trevino APRN 05/20/2015 Office visit Arabella Trevino APRN
--- OUTSIDE RECORDS SUMMARY | 2017-12-28 09:45 | XMS REPORT | Continuity of Care Document ---
Author Author [facility] Organization [facility] Address [facility] [address] [place] [address] Phone Unavailable Support Name Relationship Address Phone MARNIE JANEY/ABDELRAHMAN WILLIAM Caregiver [address] [place] [address] TAYLOR BENITES DO Caregiver [address] [place] [address] Unavailable MONTRELLAC WEBSTER Next Of Kin Unknown Insurance Providers Payer Name Policy Number Subscriber Name Relationship Blue Cross/Blue Shield [id number] Harmony Orellana 17 Self / Same As Patient Advance Directives Directive Response Recorded Date/Time Do you have an Advanced Directive? No 04/04/12 7:34am Advance Directives No 04/13/13 6:46pm Living Will No 05/08/14 9:04am Health Care Proxy No 05/17/16 8:58pm Power of Building Serviceman for Health Care No 04/13/13 6:46pm Organ, Tissue, or Eye Donor No 04/13/13 6:46pm Do you have a signed organ donor card? No 11/24/12 10:04am Chief Complaint and Reason for Visit Chief Complaint ALTERED MENTAL STATUS Reason for Visit Fatigue Chronic back pain Problems Active Problems Medical Problem Onset Date Status Allergic reaction Unknown Acute Cellulitis Unknown Acute Chest pain Unknown Acute Chronic back pain Unknown Acute Fatigue Unknown Acute Lumbar back pain with radiculopathy affecting right lower extremity Unknown Acute Lumbar strain Unknown Acute Spinal stenosis 11/10/2011 Acute Spinal [...] Tab Oral Every 6 Hours As Needed 15 05/12/16 Past Home Medications Medication Directions Ordered [...] Status Current every day smoker 04/13/2013 6:46pm Tobacco Use Cigarettes 02/13/2016 4:45pm Sexual History Heterosexual 02/13/2016 4:45pm Query Response Start Date Stop Date Smoking Status Current every day smoker Hospital Discharge Instructions No hospital discharge instructions. Plan of Care Discharge Date 05/17/16 11:40pm Condition at Discharge Stable Instructions/Education Provided Fatigue (ED) Prescriptions See Medication Section Referrals JANEY DYE/WILLIAM QUICK - 2-3 Days Additional Instructions/Education Please contact your primary physician for follow up, please drink a lot of water and try to avoid the heat and excessive activity. Functional Status Query Response Date Recorded Tl Coma Scale Total 15 May 17, 2016 10:11pm Patient Behavior Cooperative Appropriate May 17, 2016 10:11pm Allergies, Adverse Reactions, Alerts Allergen Type Severity Reaction Status Last Updated MOXIFLOXACIN HCL Allergy Unknown DIFFICULTY BREATHING Active 02/13/16 DULOXETINE HCL Allergy Unknown DIARRHEA Active 02/13/16 Ibuprofen Allergy Unknown Active 02/13/16 Risperidone Allergy Unknown Active 02/13/16 CEDAR Allergy Unknown "closes airway" Active 05/05/16 Immunizations Name Given Type Hx Diphtheria, Pertussis, Tetanus Vaccination Up To Date Historical Hx Influenza Vaccination N DOES NOT TAKE Historical Hx Pneumococcal Vaccination No Historical Vital Signs Acute Vital Signs Vital Response Date/Time Temperature (Fahrenheit) 98.6 degrees F (97.6 - 99.5) 05/17/2016 11:00pm Temperature Source Temporal Artery 05/17/2016 11:00pm Pulse Rate (adult) 90 bpm (60 - 90) 05/17/2016 11:00pm Respiratory Rate 18 bpm (12 - 24) 05/17/2016 11:00pm Blood Pressure 124/80 mm Hg 05/17/2016 11:00pm O2 Sat by Pulse Oximetry 100 % (90 - 100) 05/17/2016 11:00pm Oxygen Delivery Method 05/17/2016 11:00pm Oxygen Flow Rate 2.0 L/min 05/12/2016 11:14am Pain Intensity 8 05/12/2016 11:20am Pain Location Body Site Modifier 05/12/2016 11:20am Pain Description 05/12/2016 1:39pm Height 5 ft 2 in Weight 198 lb Body Mass Index 36.0 kg/m^2 Results Pending Laboratory Results Test Name Collection Date/Time Procedures Procedure Status Date Provider(s) MRI lumbar spine w/o contrast Active 03/31/16 JAIDA BLOUNT APRN X-ray of chest, PA and lateral views Active 05/05/16 Gong,Genaro BURSN X-ray of lumbar spine, single view Active 05/12/16 Gong,Genaro BURNS Portable x-ray of chest Completed 05/17/16 TAYLOR BENITES DO Encounters Encounter Location Arrival/Admit Date Discharge/Depart Date Attending Provider Departed Emergency Room [place] 05/17/16 9:00pm 05/17/16 11:40pm TAYLOR BENITES DO [facility] [place] 05/12/16 5:32am DEEJAY SOTELO MD Registered Clinic [place] 05/05/16 4:24pm Gong, Genaro BURNS Registered Clinic [place] 04/29/16 2:06pm Gong, Genaro BURNS Registered Clinic [place] 03/31/16 2:51pm JAIDA BLOUNT APRN Recent Diagnosis
--- OUTSIDE RECORDS SUMMARY | 2017-12-28 09:45 | XMS REPORT ---
Author Author Arabella Trevino Organization [facility] Address [address] [facility] [address] [place], [place] [id number] Care Team Providers Care Furniture Repair Technician Name Role Phone Arabella Trevino PCP Unavailable [...] oral route once daily for 90 days Percocet 10-325 mg oral tablet take 1 tablet by oral route every 6 hours as needed hydroxyzine pamoate 25 mg oral capsule take 1 capsule (25 mg) by oral route 3 times per day baclofen 10 mg oral tablet take 1 tablet (10 mg) by oral route 3 times per day triamterene-hydrochlorothiazid 37.5-25 mg oral tablet take 1 tablet by oral route once daily for 30 days Name Start Date Expiration Date SIG Comments Flonase Allergy Relief 50 mcg/actuation nasal spray,suspension 08/05/201512/03 inhale 1 puff by nasal route daily for 30 days amoxicillin 500 mg oral tablet 08/05/2015 08/15/2015 take 2 tablets by oral route every 12 hours for 10 days LINING SETTER Thyroid 90 mg oral tablet 08/05/2015 11/03/2015 take 1 tablet by oral route daily for 90 days cyclobenzaprine 10 mg oral tablet 01/10/2016 02/09/2016 take 1 tablet (10 mg) by oral route 3 for 30 days tramadol 50 mg oral tablet 01/10/2016 02/09/2016 take 2 tablets (100 mg) by oral route every 6 hours as needed for 30 days potassium chloride 20 mEq [...] HC BMI BSA BMI Percentile O2 Sat(%) 05/19/2016 3:08:00 PM 114 mmHg 72 mmHg [...] F 171.25 lbs 62 in 31.32 kg/m2 1.8434 m 99 % 08/05/2015 5:02:00 PM 108 mmHg 80 mmHg 81 bpm 97.7 F 171.25 lbs 62 in 31.3217 kg/m 1.84 m2 98 % 05/20/2015 5:06:00 PM 108 mmHg 86 mmHg 82 bpm 20 rpm 97.2 F 177.125 lbs 62 in 32.40 kg/m2 1.8747 m 98 % Social History Name [...] Vis Given Vis Pub CVX Tdap 01/10/2016 GlaxoSmCDNetworksKline SKB BOOSTRIX [id number] Intramuscular Left Arm 01/10/2016 [...] 2016 2:37PM Twitching May 19 2016 3:14PM Payers Insurance Name Company Name Plan Name Plan Number Policy Number Policy Group Number Start Date BCBS Bcbs [facility] [id number] N/A GlobalCare/ OEFI GlobalCare/ OEFI [id number] Wednesday, 2015 History of Encounters Visit Date Visit Type Provider 05/19/2016 Office visit Arabella Trevino APRN 05/08/2016 Laboratory Geeta Gray APRN 05/06/2016 Office visit Arabella Trevino APRN 02/13/2016 Office visit Arabella Trevino APRN 01/29/2016 Office visit Arabella Trevino APRN 01/10/2016 Office visit 01/10/2016 Office visit Arabella Trevino APRN 12/24/2015 Office visit Rhett Nj MD 12/09/2015 Office visit Arabella Trevino APRN 11/16/2015 Office visit Arabella Trevino APRN 08/05/2015 Office visit Arabella Trevino APRN 05/20/2015 Office visit Arabella Trevino APRN
--- OUTSIDE RECORDS SUMMARY | 2017-12-28 09:45 | XMS REPORT ---
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 for 30 days Problem List Not available. Vital Signs Date [...] AM TDAP VACCINE 7 YRS/> IM Reviewed 05/06/2016 12:00 AM METABOLIC PANEL TOTAL [...] BLOOD NEGATIVE NITRITE NEGATIVE LEUK SCREEN NEGATIVE History Of Immunizations Name Date Admin Mfg Name Mfg Code Trade Name Lot# Route Inj Vis Given Vis Pub CVX Tdap 01/10/2016 GlaxoSmithKline SKB BOOSTRIX [id number] Intramuscular Left Arm 01/10/2016 [...] Lower extremity edema May 08 2016 10:41AM Payers Insurance Name Company Name Plan Name Plan Number Policy Number Policy Group Number Start Date [facility] [id number] N/A GlobalCare/ OEFI GlobalCare/ OEFI [id number] Wednesday, 2015 History of Encounters Visit Date Visit Type Provider 05/08/2016 Laboratory Geeta Gray BARREL CAP SETTER 05/06/2016 Office visit Arabella Trevino APRN 02/13/2016 Voided Arabella Trevino BARREL CAP SETTER 01/29/2016 Office visit Arabella Trevino APRN 01/10/2016 Office visit 01/10/2016 Office visit Arabella Trevino APRN 12/24/2015 Office visit Rhett Nj MD 12/09/2015 Office visit Arabella Trevino APRN 11/16/2015 Office visit Arablela Trevino APRN 08/05/2015 Office visit Arabella Trevino APRN 05/20/2015 Office visit Arabella Trevino APRN
--- OUTSIDE RECORDS SUMMARY | 2017-12-28 09:46 | XMS REPORT ---
Author Author Arabella Trevino Organization [facility] Address [address] [facility] [address] [place], [place] [id number] Care Team Providers Care Warehouse Selector Name Role Phone Arabella Trevino PCP Unavailable [...] Start Date Estimated Completion Date SIG Comments topiramate 100 mg oral tablet take 1 tablet (100 mg) by oral route 2 times per day epinephrine 0.3 mg/0.3 mL injection auto-injector inject 0.3 milliliter (0.3 mg) by intramuscular route once as needed for anaphylaxis Nature-Throid 130 mg oral tablet 11/16/2015 08/12/2016 take 1 tablet (130 mg ) by oral route once daily before breakfast for 90 days hydroxyzine pamoate 25 mg oral capsule take 1 capsule by oral route 3 times a day for 30 days Prozac 20 mg oral capsule 12/09/2015 06/06/2016 take 2 capsules by oral route daily Protonix 40 mg oral tablet,delayed release (DR/EC) 12/25/2015 03/24/2016 take 1 tablet (40 mg) by oral route once daily for 30 days cyclobenzaprine 10 mg oral tablet 01/10/2016 02/09/2016 take 1 tablet (10 mg) by oral route 3 for 30 days gabapentin 800 mg oral tablet 01/10/2016 04/09/2016 take 1 tablet (800 mg) by oral route 3 for 30 days tramadol 50 mg oral tablet 01/10/2016 02/09/2016 take 2 tablets (100 mg) by oral route every 6 hours as needed for 30 days Boniva 150 mg oral tablet 01/10/2016 07/08/2016 take 1 tablet (150 mg) by oral route once a month on the same date; Take with a full glass of water and remain in an upright position for at least 60 minutes. for 30 days Name Start Date Expiration Date SIG Comments Flonase Allergy Relief 50 mcg/actuation nasal spray,suspension 08/05/201512/03 inhale 1 puff by nasal route daily for 30 days amoxicillin 500 mg oral tablet 08/05/2015 08/15/2015 take 2 tablets by oral route every 12 hours for 10 days TEMP RECRUITER Thyroid 90 mg oral tablet 08/05/2015 11/03/2015 take 1 tablet by oral route daily for 90 days Discontinued Name Start Date [...] 90 days [facility] switched her to prozac olanzapine 5 mg oral tablet 12/24/2015 take 1 tablet (5 mg) by oral route once daily in the evening for 30 days Problem List Not available. Vital Signs Date Time BP-Sys(mm[Hg] BP-Lakshmi(mm[Hg]) HR(bpm) RR(rpm) Temp WT HT HC BMI BSA BMI Percentile O2 Sat(%) 01/10/2016 9:27:00 AM 108 mmHg 78 mmHg [...] AM TDAP VACCINE 7 YRS/> IM Reviewed 05/20/2015 12:00 AM ELECTROCARDIOGRAM COMPLETE Returned Results [...] BILI 0.30 mg/dLCALCIUM 9.20 mg/ dLeGFR 60 History Of Immunizations Name Date Admin Mfg Name Mfg Code Trade Name Lot# Route Inj Vis Given Vis Pub CVX Tdap 01/10/2016 Secure-24 SKB BOOSTRIX [id number] Intramuscular Left Arm 01/10/2016 [...] 2016 9:29AM Osteoporosis Jan 10 2016 9:29AM Payers Insurance Name Company Name Plan Name Plan Number Policy Number Policy Group Number Start Date [facility] [id number] N/A GlobalCare/ OEFI GlobalCare/ OEFI [id number] Wednesday, 2015 History of Encounters Visit Date Visit Type Provider 01/10/2016 Office visit 01/10/2016 Office visit Arabella Trevino FLAT SPRING ASSEMBLER 12/24/2015 Office visit Rhett Nj MD 12/09/2015 Office visit Arabella Trevino FLAT SPRING ASSEMBLER 11/16/2015 Office visit Arabella Trevino APRN 08/05/2015 Office visit Arabella Trevino APRN 05/20/2015 Office visit Arabella Trevino APRN
--- OUTSIDE RECORDS SUMMARY | 2017-12-28 09:46 | XMS REPORT ---
Author Author Arabella Trevino Organization [facility] Address [address] [place], [place] [id number] Care Team Providers Care Volunteer Services Specialist Name Role Phone Arabella Trevino PCP Unavailable [...] Free thyroxine (FT4) measurement 01/10/2016 12:00 AM Thoracic Spine 2Views - Main 10/27/2016 12:00 AM HIP COMP MIN 2 VIEWS [...] oral route once daily for 30 days baclofen 10 mg oral [...] route every 12 hours for 10 days PIPE INSULATOR HELPER Thyroid 90 mg oral tablet 08/05/2015 11/03/2015 [...] 3 times per day for 10 days amoxicillin 500 mg oral tablet 10/02/2016 [...] Vis Given Vis Pub CVX Tdap 01/10/2016 GlaxAchieve Xine SKB BOOSTRIX [id number] Intramuscular Left Arm 01/10/2016 [...] Hip pain, right Oct 27 2016 3:28PM Payers Insurance Name Company Name Plan Name Plan Number Policy Number Policy Group Number Start Date BCBS [facility] [place] [id number] N/A GlobalCare/ OEFI GlobalCare/ OEFI [id number] Wednesday, 2015 History of Encounters Visit Date [...]
--- OUTSIDE RECORDS SUMMARY | 2017-12-28 09:47 | XMS REPORT ---
Author Tavares Castano Organization [facility] Address [address] [place], [place] [address] Care Team Providers Care Full Decator Operator Name Role Phone Tavares Peck PCP Unavailable , blue stem Unavailable Unavailable Arabelal Trevino PreferredProvider Unavailable Allergies and Adverse Reactions [...] by oral route 3 times per day Protonix 40 mg oral tablet,delayed release (DR/EC) 08/12/2016 08/07/2017 take 1 tablet (40 mg) by oral route once daily for 90 days Vitamin D2 50,000 unit oral capsule 08/14/2016 08/09/2017 take 1 capsule (50 ,000 unit) by oral route once weekly baclofen 10 mg oral tablet 02/26/2017 05/27/2017 take 1 tablet (10 mg) by oral route 3 for 30 days benztropine 1 mg oral tablet take 1 tablet (1 mg) by oral route once daily rizatriptan 10 mg oral tablet take 1 tablet (10 mg) by oral route once, may repeat at 2 hour intervals; do not exceed 30 mg in 24 hours ondansetron 4 mg oral tablet,disintegrating place 2 tablets (8 mg) on top of the tongue where they will dissolve, then swallow by translingual route 1 -2 hours prior to radiation therapy gabapentin 800 mg oral tablet 04/06/2017 07/05/2017 take 1 tablet (800 mg) by oral route 3 times per day for 30 days Nature-Throid 146.25 mg oral tablet 04/06/2017 10/03/2017 take 1 tablet ( 146.25 mg) by oral route once daily before breakfast for 90 days nicotine 21 mg/24 hr transdermal patch 24 hour 04/15/2017 07/14/2017 apply 1 patch (21 mg) by transdermal route once daily for 30 days Name Start Date Expiration Date SIG Comments Flonase Allergy Relief 50 mcg/actuation nasal spray,suspension 08/05/201512/03 inhale 1 puff by nasal route daily for 30 days amoxicillin 500 mg oral tablet 08/05/2015 08/15/2015 take 2 tablets by oral route every 12 hours for 10 days BREAD OVEN OPERATOR Thyroid 90 mg oral tablet 08/05/2015 11/03/2015 [...] as needed for anaphylaxis for 1 day tramadol 50 mg oral tablet 12/30/2016 03/30/2017 take 1 tablet by oral route 3 times a day for 30 days Discontinued Name Start Date [...] oral route once daily for 30 days Problem List Description Status [...] HC BMI BSA BMI Percentile O2 Sat(%) 04/06/2017 2:06:00 PM 126 mmHg 70 mmHg [...] Reviewed 04/21/2017 12:00 AM ROUTINE VENIPUNCTURE Reviewed 05/20/2015 12:00 AM ELECTROCARDIOGRAM COMPLETE [...] Vis Given Vis Pub CVX Tdap 01/10/2016 Super Vitamin Dine SKB BOOSTRIX [id number] Intramuscular Left Arm 01/10/2016 [...] 30 2016 2:24PM Coronary artery disease involving [place] heart without angina pectoris, unspecified vessel or lesion type Dec 30 2016 2:24PM Hyperlipidemia, unspecified Mar 01 2017 3:22PM Hypothyroidism, Acquired Mar 01 2017 3:22PM Lumbar radicular pain Mar 01 2017 3:22PM Costochondritis, acute Mar 01 2017 3:22PM Low back pain Apr 06 2017 2:08PM Hypothyroidism Apr 21 2017 3:58PM Payers Insurance Name Company Name Plan Name Plan Number Policy Number Policy Group Number Start Date BCBS Bcbs [facility] [id number] N/A GlobalCare/ OEFI GlobalCare/ OEFI [id number] Wednesday, 2015 History of Encounters Visit Date Visit Type Provider 04/21/2017 Laboratory Tavares Peck APRN 04/06/2017 Office visit Geeta Gray APRN 03/01/2017 Office visit Arabella Trevino APRN 12/30/2016 [...]
--- OUTSIDE RECORDS SUMMARY | 2017-12-28 09:48 | XMS REPORT ---
Author Fuentes Araujo [facility] Address [address] [place], [place] [address] Care Team Providers Care Italian Tutor Name Role Phone Fuentes Lama PCP , blue stem Unavailable Unavailable maravilla Unavailable Unavailable Uriel Arabella Unavailable Unavailable Arabella Trevino PreferredProvider Allergies and [...] Free thyroxine (FT4) measurement 11/17/2017 12:00 AM EKG. 12/20/2017 12:00 AM abd bloating and abd pain for 1 year hypothyroidism unresponsive to treatment 04/21/2017 1:00 PM cad and elevated lipids 01/19/2017 2:30 PM Evaluate CAD and worsening fatigue 07/20/2017 2:00 PM eval cardiac status Medications Active Name Start Date Estimated Completion Date SIG Comments fluoxetine 40 mg oral capsule take 1 capsule by oral route 3 times a day Vitamin D3 5,000 unit oral tablet 06/14/2017 06/09/2018 take 1 tablet by oral route daily for 90 days Adult Low Dose Aspirin 81 mg oral tablet,delayed release (DR/EC) 07/14/2017 take 1 tablet (81 mg) by oral route once daily with a meal atorvastatin 20 mg oral tablet 10/07/2017 take 1 tablet (20 mg) by oral route once daily at bedtime for 90 days aripiprazole 15 mg oral tablet take 1 tablet (15 mg) by oral route once daily Bactrim DS 800-160 mg oral tablet 11/17/2017 take 1 tablet by oral route every 12 hours for 10 days mupirocin 2 % topical ointment 11/17/2017 apply a small amount to the affected area by topical route 3 times per day for 10 days furosemide 20 mg oral tablet 12/13/2017 take 1-2 tablets by oral route daily for 30 days gabapentin 800 mg oral tablet 12/13/2017 take 1 tablet (800 mg) by oral route 3 for 30 days levothyroxine 200 mcg oral tablet 12/13/2017 take 1 tablet (200 mcg) by oral route once daily for 90 days potassium chloride 20 mEq oral tablet extended release 12/13/2017 take 1-2 tablet (20 meq) by oral route once daily with food for 30 days benztropine 1 mg oral tablet take 1 tablet (1 mg) by oral route 2 times per day hydroxyzine pamoate 25 mg oral capsule take 1 capsule by oral route TID as needed for anxiety Name Start Date Expiration Date SIG Comments Flonase Allergy Relief 50 mcg/actuation nasal spray,suspension 08/05/201512/03 inhale 1 puff by nasal route daily for 30 days amoxicillin 500 mg oral tablet 08/05/2015 08/15/2015 take 2 tablets by oral route every 12 hours for 10 days STAFF TRAINER Thyroid 90 mg oral tablet 08/05/2015 11/03/2015 [...] 000 unit) by oral route once weekly benztropine 1 mg oral tablet 12/20/2017 take 1 tablet (1 mg) by oral route once daily rizatriptan 10 mg oral tablet 07/14/2017 take [...] and 2 at hs. Decreased dose 08/13/17 pantoprazole 40 mg oral tablet,delayed release (DR/EC) 12/13/2017 12/20/2017 take 1 tablet (40 mg) by oral route once daily for 90 days Problem List Description Status Onset Anxiety and depression Active Chronic back pain greater than 3 months duration Active arthritis Active Hallucinations Active Heart Attack Active 1996 Kidney stone Active Osteoporosis Active Thyroid disorder Active Depression Active Dizziness Active Anxiety Active Tingling in extremities Active Vital Signs Date Time BP-Sys(mm[Hg] BP-Lakshmi(mm[Hg]) HR(bpm) RR(rpm) Temp WT HT HC BMI BSA BMI Percentile O2 Sat(%) 12/20/2017 12:58:00 PM 120 mmHg 82 mmHg 96 bpm 20 rpm 98.4 F 223.5 lbs 62 in 40.88 kg/m2 2.11 m2 96 % 12/20/2017 12:58:00 PM 118 mmHg 78 mmHg 12/13/2017 6:54:00 PM 106 mmHg 80 mmHg 80 bpm 18 rpm 96.3 F 220.25 lbs 62 in 40.2838 kg/m 2.0905 m 99 % 11/17/2017 9:46:00 AM 108 mmHg 82 mmHg [...] Reviewed 11/17/2017 12:00 AM ELECTROCARDIOGRAM TRACING Reviewed 11/17/2017 12:00 AM TTE W/DOPPLER COMPLETE Reviewed 11/17/2017 12:00 AM MYOCARDIAL SPECT MULTIPLE STUDIES Reviewed 05/20/2015 12:00 AM ELECTROCARDIOGRAM COMPLETE Reviewed [...] Vis Given Vis Pub CVX Tdap 01/10/2016 GlaxVinsula SKB BOOSTRIX [id number] Intramuscular Left Arm 01/10/2016 03/02/2013 115 History of Past Illness Name Date of Onset Comments Anxiety arthritis Depression Dizziness Fractured bone Headache Heart Attack 1995 "[facility]", no cath Kidney stone Osteoporosis Tingling in extremities Thyroid [...] 30 2016 2:24PM Coronary artery disease involving [place] heart without angina pectoris, unspecified vessel or [...] Shortness of breath Nov 17 2017 9:50AM Essential hypertension Dec 13 2017 6:55PM Hyperlipidemia, unspecified Dec 13 2017 6:55PM Bilateral Inferior Pedal edema Improving Dec 13 2017 6:55PM Osteoporosis Dec 13 2017 6:55PM Severe Bilateral Pendulous breast Dec 13 2017 6:55PM Shortness of breath Dec 20 2017 1:09PM Payers Insurance Name Company Name Plan Name Plan Number Policy Number Policy Group Number Start Date BCBS [employer] [place] [id number] N/A GlobalCare/ OEFI GlobalCare/ OEFI [id number] Wednesday, 2015 BCBS [employer] [place] [id number] Tuesday, 2016 History of Encounters Visit Date Visit Type Provider 12/20/2017 Office visit Fuentes Lama BRANCH SALES AND SERVICE REPRESENTATIVE 12/13/2017 Office visit Arabella Trevino BRANCH SALES AND SERVICE REPRESENTATIVE 11/17/2017 Office visit Arabella Trevino BRANCH SALES AND SERVICE REPRESENTATIVE 10/07/2017 Office visit Arabella Trevino BRANCH SALES AND SERVICE REPRESENTATIVE 08/13/2017 Office visit Arabella Trevino BRANCH SALES AND SERVICE REPRESENTATIVE 07/14/2017 Office visit Arabella Trevino BRANCH SALES AND SERVICE REPRESENTATIVE 06/11/2017 [facility] Maegan Oliver MD 06/11/2017 Office visit Arabella Trevino BRANCH SALES AND SERVICE REPRESENTATIVE 05/19/2017 Office visit Geeta Gray BRANCH SALES AND SERVICE REPRESENTATIVE 04/22/2017 Office visit Arabella Trevino BRANCH SALES AND SERVICE REPRESENTATIVE 04/21/2017 Laboratory Tavares Peck BRANCH SALES AND SERVICE REPRESENTATIVE 04/06/2017 Office visit Geeta Gray BRANCH SALES AND SERVICE REPRESENTATIVE 03/01/2017 Office visit Arabella Trevino BRANCH SALES AND SERVICE REPRESENTATIVE 12/30/2016 Office visit Arabella Trevino BRANCH SALES AND SERVICE REPRESENTATIVE 10/27/2016 Office visit Arabella Trevino BRANCH SALES AND SERVICE REPRESENTATIVE 10/02/2016 Office visit Arabella Trevino BRANCH SALES AND SERVICE REPRESENTATIVE 08/12/2016 Office visit Arabella Trevino BRANCH SALES AND SERVICE REPRESENTATIVE 05/19/2016 Office visit Arabella Trevino BRANCH SALES AND SERVICE REPRESENTATIVE 05/08/2016 Laboratory Geeta Gray BRANCH SALES AND SERVICE REPRESENTATIVE 05/06/2016 Office visit Arabella Trevino BRANCH SALES AND SERVICE REPRESENTATIVE 02/13/2016 Office visit Arabella Trevino APRN 01/29/2016 Voided Arabella Trevino APRN 01/10/2016 Office visit 01/10/2016 Office visit Arabella Trevino APRN 12/24/2015 Office visit Rhett Nj MD 12/09/2015 Office visit Arabella Trevino APRN 11/16/2015 Office visit Arabella Trevino APRN 08/05/2015 Office visit Arabella Trevino APRN 05/20/2015 Office visit Arabella Trevino APRN
--- OUTSIDE RECORDS SUMMARY | 2017-12-28 09:49 | XMS REPORT ---
Author Author Arabella Trevino Organization [facility] Address [address] [place], [place] [address] Care Team Providers Care Enterprise Resource Planner Name Role Phone Arabella Trevino PCP Unavailable [...] ASSAY OF FREE THYROXINE 11/16/2015 12:00 AM COMPLETE CBC W/AUTO DIFF WBC 12/09/2015 12:00 AM COMPREHEN METABOLIC PANEL 12/09/2015 12:00 AM LIPID PANEL 12/09/2015 12:00 AM URINALYSIS AUTO W/O SCOPE 12/09/2015 12:[address] ABD & PELV W/CONTRAST 12/09/2015 12:00 AM abd bloating and abd pain for 1 year Medications Active Name Start Date Estimated Completion Date SIG Comments gabapentin 800 mg oral tablet take 1 tablet (800 mg) by oral route 3 times per day tramadol 50 mg oral tablet take 2 tablets (100 mg) by oral route every 6 hours as needed topiramate 100 mg oral tablet take 1 tablet (100 mg) by oral route 2 times per day epinephrine 0.3 mg/0.3 mL injection auto-injector inject 0.3 milliliter (0.3 mg) by intramuscular route once as needed for anaphylaxis Nature-Throid 130 mg oral tablet 11/16/2015 08/12/2016 take 1 tablet (130 mg ) by oral route once daily before breakfast for 90 days cyclobenzaprine 10 mg oral tablet 11/16/2015 12/16/2015 take 1 tablet (10 mg) by oral route 3 for 30 days hydroxyzine pamoate 25 mg oral capsule take 1 capsule by oral route 3 times a day for 30 days Prozac 20 mg oral capsule 12/09/2015 06/06/2016 take 2 capsules by oral route daily olanzapine 5 mg oral tablet take 1 tablet (5 mg) by oral route once daily in the evening for 30 days Name Start Date Expiration Date SIG Comments Flonase Allergy Relief 50 mcg/actuation nasal spray,suspension 08/05/201512/03 inhale 1 puff by nasal route daily for 30 days amoxicillin 500 mg oral tablet 08/05/2015 08/15/2015 take 2 tablets by oral route every 12 hours for 10 days 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 Vital Signs Date Time BP-Sys(mm[Hg] BP-Lakshmi(mm[Hg]) HR(bpm) RR(rpm) Temp WT HT HC BMI BSA BMI Percentile O2 Sat(%) 12/09/2015 6:36:00 PM 130 mmHg 80 mmHg [...] of Procedures Date Ordered Description Order Status 05/20/2015 12:00 AM ELECTROCARDIOGRAM COMPLETE Returned Results Summary Not available. History Of Immunizations [...] 2015 6:39PM Osteoporosis Dec 09 2015 6:39PM Payers Insurance Name Company Name Plan Name Plan Number Policy Number Policy Group Number Start Date BCBS [facility] [id number] N/A [employer]/ [employer] [id number] Wednesday, 2015 History of Encounters Visit Date Visit Type Provider 12/09/2015 Office visit Arabella Trevino APRN 11/16/2015 Office visit Arabella Trevino APRN 08/05/2015 Office visit Arabella Trevino APRN 05/20/2015 Office visit Arabella Trevino APRN
--- OUTSIDE RECORDS SUMMARY | 2017-12-28 09:50 | XMS REPORT | Continuity of Care Document ---
Author Author [facility] Organization [facility] Address [facility] [address] [place] [address] Phone Unavailable Support Name Relationship Address Phone JANEY DYE Caregiver [address] [place] [address] RICARDO REY DO Caregiver [address] [place], [place] [address] MONTRELLAC WEBSTER Next Of Kin Unknown Insurance Providers Payer Name Policy Number Subscriber Name Relationship Blue Cristopher Other [id number] Harmony Orellana 18 Self / Same As Patient Advance Directives Directive Response Recorded Date/Time Do you have an Advanced Directive? No 04/04/12 7:34am Advance Directives No 04/13/13 6:46pm Living Will No 05/08/14 9:04am Health Care Proxy No 02/13/16 3:43pm Power of Rubber Goods Cutter Finisher for Health Care No 04/13/13 6:46pm Organ, Tissue, or Eye Donor No 04/13/13 6:46pm Do you have a signed organ donor card? No 11/24/12 10:04am Chief Complaint and Reason for Visit Chief Complaint LOW BACK PAIN/INJURY Reason for Visit [id number] Chronic back pain Lumbar strain Problems Active Problems Medical Problem Onset Date Status Allergic reaction Unknown Acute Cellulitis Unknown Acute Chest pain Unknown Acute Chronic back pain Unknown Acute Lumbar back pain with radiculopathy [...] Mcg 50 Mcg Oral Daily 30 04/14/13 Trazodone Hcl 300 Mg 150 Mg Oral Bedtime 04/15/13 Prednisone 20 Mg 40 Mg Oral Daily 05/20/15 Cyclobenzaprine Hcl (Flexeril*) 10 Mg 10 Mg Oral Three Times A Day as needed for Muscle Spasms 05/21/15 Citalopram Hydrobromide 40 Mg 40 Mg Oral Daily 05/21/15 Gabapentin 800 Mg 800 Mg Oral 3-4 Times Daily 02/13/16 Fluoxetine Hcl 40 Mg 40 Mg Oral Daily 02/13/16 Thyroid,Pork 260 Mg 130 Mg Oral Bedtime 02/13/16 Acetaminophen/Hydrocodone Bitart (Lortab 5-325*) 1 Tab 1 Each Oral Every 4- 6 Hrs As Needed Pain for Pain 02/13/16 Prednisone 20 Mg 60 Mg Oral Daily 02/13/16 Cyclobenzaprine Hcl (Flexeril*) 10 Mg 10 Mg Oral Three Times A Day as needed for Muscle Spasms 02/13/16 Past Home Medications Medication Directions Ordered Status [...] [Thyroxine] , 100 Mcg Daily 04/14/13 Discontinued Gabapentin 100 Mg Capsule, 100 Mg Oral Three Times A Day 04/14/13 Discontinued Carisoprodol 350 Mg Tablet, 350 Mg Oral Three Times A Day 04/14/13 Discontinued Sulfamethoxazole/Trimethoprim* 1 Tab Tablet, 1 Ea Oral Twice A Day 05/20/15 Discontinued Social History Social History Problem Response Recorded Date/Time Smoking Status Current every day smoker 04/13/2013 6:46pm Tobacco Use Cigarettes 02/13/2016 4:45pm Alcohol Use none 02/13/2016 4:45pm Drug Use none 02/13/2016 4:45pm Sexual History Heterosexual 02/13/2016 4:45pm Query Response Start Date Stop Date Smoking Status Current every day smoker Hospital Discharge Instructions No hospital discharge instructions. Plan of Care Discharge Date 02/13/16 5:09pm Condition at Discharge Stable Instructions/Education Provided Lumbar Radiculopathy (ED) Chronic Back Pain (ED) Prescriptions See Medication Section Referrals JANEY DYE - Functional Status Query Response Date Recorded Tl Coma Scale Total 15 February 13, 2016 4:59pm Patient Behavior Cooperative Appropriate February 13, 2016 4:59pm Allergies, Adverse Reactions, Alerts Allergen Type Severity Reaction Status Last Updated MOXIFLOXACIN HCL Allergy Unknown DIFFICULTY BREATHING Active 02/13/16 DULOXETINE HCL Allergy Unknown DIARRHEA Active 02/13/16 Ibuprofen Allergy Unknown Active 02/13/16 Risperidone Allergy Unknown Active 02/13/16 Immunizations Name Given Type Hx Diphtheria, Pertussis, Tetanus Vaccination Up To Date Historical Hx Influenza Vaccination No Historical Hx Pneumococcal Vaccination No Historical Vital Signs Acute Vital Signs Vital Response Date/Time Temperature (Fahrenheit) 97.9 degrees F (97.6 - 99.5) 02/13/2016 4:59pm Temperature Source Temporal Artery 02/13/2016 4:59pm Pulse Rate (adult) 73 bpm (60 - 90) 02/13/2016 4:59pm Respiratory Rate 18 bpm (12 - 24) 02/13/2016 4:59pm Blood Pressure 117/78 mm Hg 02/13/2016 4:59pm O2 Sat by Pulse Oximetry 100 % (90 - 100) 02/13/2016 4:59pm Oxygen Delivery Method 02/13/2016 4:59pm Pain Location Body Site Modifier Medial 02/13/2016 4:46pm Pain Description 02/13/2016 4:46pm Height 5 ft 2 in Weight 185 lb Body Mass Index 33.0 kg/m^2 Results No known relevant diagnostic tests, laboratory data and/or discharge summary. Procedures No known history of procedures. Encounters Encounter Location Arrival/Admit Date Discharge/Depart Date Attending Provider Registered Emergency Room [place] 02/13/16 3:46pm RICARDO REY DO Recent Diagnosis
--- OUTSIDE RECORDS SUMMARY | 2017-12-28 09:50 | XMS REPORT | Continuity of Care Document ---
Author Author [facility] Organization [facility] Address [facility] [address] [place] [address] Phone Unavailable Support Name Relationship Address Phone DEEJAY SOTELO MD Caregiver [address] [place] [address] Unavailable Genaro Gong MD Caregiver [address] [place] [address] JANEY DYE/ABDELRAHMAN THOMAS Caregiver [address] [place] [address] AC STOCK Next Of Kin Unknown Insurance Providers Payer Name Policy Number Subscriber Name Relationship Blue Cross/Blue Shield [id number] Harmony Orellana 18 Self / Same As Patient Advance Directives Directive Response Recorded Date/Time Do you have an Advanced Directive? No 04/04/12 7:34am Advance Directives No 04/13/13 6:46pm Living Will No 05/08/14 9:04am Health Care Proxy No 05/05/16 10:09am Power of Rim Fire Priming Operator for Health Care No 04/13/13 6:46pm Organ, Tissue, or Eye Donor No 04/13/13 6:46pm Do you have a signed organ donor card? No 11/24/12 10:04am Problems Active Problems Medical Problem Onset Date [...] Day as needed for Muscle Spasms 15 07/28/15 Gabapentin 800 Mg 800 Mg Oral Three [...] A Day 11/30/12 Discontinued Omeprazole 20 Mg Capsule., 20 Mg Oral Twice A Day 11/30/12 [...] Current every day smoker Hospital Discharge Instructions Discharge Instructions Nursing Instructions Flu Vaccine Received this Visit: No Pneumonia Vaccine Received this Visit: No Education #1 Topic: Post-op Micro by Dr. Gong Methods: Handout Recipient: Patient Patient specific education materials provided?: Yes Patient Request Electronic Discharge Instructions: No Patient Received Electronic Discharge Instructions: Yes Patient Health Summary printed/downloaded for the patient?: Yes Plan of Care Discharge Date 05/12/16 2:52pm Disposition 01 HOME, USP,ASSISTED LIVING Instructions/Education Provided Post-op Micro Surg - Dr. Gong Prescriptions See Medication Section Care Plan and Goals See Discharge Instructions Section Functional Status No functional status results. Allergies, Adverse Reactions, Alerts Allergen Type Severity [...] Vital Signs Vital Response Date/Time Temperature (Fahrenheit) 97.1 degrees F (97.6 - 99.5) 05/12/2016 11:00am Temperature Source Temporal Artery 05/12/2016 11:00am Pulse Rate (adult) 86 bpm (60 - 90) 05/12/2016 11:00am Respiratory Rate 18 bpm (12 - 24) 05/12/2016 11:00am Blood Pressure 114/71 mm Hg 05/12/2016 11:00am Blood Pressure 112/67 mm Hg 05/12/2016 11:00am Blood Pressure 107/69 mm Hg 05/12/2016 11:00am Blood Pressure 111/77 mm Hg 05/12/2016 11:00am Blood Pressure 111/76 mm Hg 05/12/2016 11:00am Blood Pressure 98/51 mm Hg 05/12/2016 11:00am Blood Pressure 87/50 mm Hg 05/12/2016 11:00am Blood Pressure 91/52 mm Hg 05/12/2016 11:00am Blood Pressure 90/50 mm Hg 05/12/2016 11:00am Blood Pressure 102/63 mm Hg 05/12/2016 11:00am Blood Pressure 93/62 mm Hg 05/12/2016 11:00am Blood Pressure 103/66 mm Hg 05/12/2016 11:00am Blood Pressure 110/70 mm Hg 05/12/2016 11:00am Blood Pressure 100/64 mm Hg 05/12/2016 11:00am Blood Pressure 108/72 mm Hg 05/12/2016 11:00am Blood Pressure 103/69 mm Hg 05/12/2016 11:00am Blood Pressure 101/67 mm Hg 05/12/2016 11:00am Blood Pressure 103/72 mm Hg 05/12/2016 11:00am Blood Pressure 100/66 mm Hg 05/12/2016 11:00am Blood Pressure 94/60 mm Hg 05/12/2016 11:00am Blood Pressure 105/71 mm Hg 05/12/2016 11:00am O2 Sat by Pulse Oximetry 94 % (90 - 100) 05/12/2016 11:14am Oxygen Delivery Method 02/13/2016 4:59pm Oxygen Flow Rate 2.0 L/min 05/12/2016 11:14am Pain Intensity 6 05/12/2016 6:59am Pain Location Body Site Modifier 05/05/2016 10:09am Pain Description 05/12/2016 1:39pm Height 5 ft 2 in Weight 200 lb Body Mass Index 36.0 kg/m^2 Results Pending Laboratory Results Test Name Collection Date/Time Procedures Procedure Status Date Provider(s) MRI lumbar spine w/o contrast Active 03/31/16 JAIDA BLOUNT APRN X-ray of chest, PA and lateral views Active 05/05/16 Genaro Gong MD X-ray of lumbar spine, single view Completed 05/12/16 Genaro Gong MD Encounters Encounter Location Arrival/Admit Date Discharge/Depart Date Attending Provider Discharged Inpatient (obs) [place] 05/12/16 11:20am 05/12/16 2:52pm DEEJAY SOTELO MD Registered Clinic [place] 05/05/16 4:24pm Genaro Gong MD Registered Clinic [place] 04/29/16 2:06pm Genaro Gong MD Registered Clinic [place] 03/31/16 2:51pm JAIDA BLOUNT APRN Departed Emergency Room [place] 02/13/16 3:46pm 02/13/16 5:09pm RICARDO REY DO
--- OUTSIDE RECORDS SUMMARY | 2017-12-28 09:50 | XMS REPORT ---
Author Geeta Glass [facility] Address [address] [place], [place] [address] Care Team Providers Care Internet Sales Director Name Role Phone Geeta Gray PCP Unavailable , blue stem Unavailable Unavailable [...] ,000 unit) by oral route once weekly benztropine 1 mg oral tablet take 1 [...] 05/11/2017 TAKE ONE TABLET BY MOUTH DAILY tramadol 50 mg oral tablet 05/19/2017 06/18/2017 take 1 tablet by oral route 3 times a day for 30 days Name Start Date Expiration Date SIG Comments Flonase Allergy Relief 50 mcg/actuation nasal spray,suspension 08/05/201512/03 inhale 1 puff by nasal route daily for 30 days amoxicillin 500 mg oral tablet 08/05/2015 08/15/2015 take 2 tablets by oral route every 12 hours for 10 days 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 Thyroid 90 mg oral tablet 08/05/2015 [...] HC BMI BSA BMI Percentile O2 Sat(%) 05/19/2017 10:51:00 AM 128 mmHg 84 mmHg [...] 12:00 AM Toradol 30 Mg Injection Reviewed 05/20/2015 12:00 AM ELECTROCARDIOGRAM COMPLETE Reviewed [...] Vis Given Vis Pub CVX Tdap 01/10/2016 [facility] SKB BOOSTRIX [id number] Intramuscular Left Arm 01/10/2016 [...] 30 2016 2:24PM Coronary artery disease involving [place] heart without angina pectoris, unspecified vessel or [...] 2017 4:58PM Migraine May 19 2017 10:53AM Payers Insurance Name Company Name Plan Name Plan Number Policy Number Policy Group Number Start Date BCBS [facility] [id number] N/A [employer]/ [employer] [id number] Wednesday, 2015 History of Encounters Visit Date Visit Type Provider 05/19/2017 Office visit Geeta Gray HEADWAITER/HEADWAITRESS 04/22/2017 Office visit Arabella Trevino HEADWAITER/HEADWAITRESS 04/21/2017 Laboratory Tavares Peck HEADWAITER/HEADWAITRESS 04/06/2017 Office visit Geeta Gray HEADWAITER/HEADWAITRESS 03/01/2017 Office visit Arabella Trevino HEADWAITER/HEADWAITRESS 12/30/2016 Office visit Arabella Trevion HEADWAITER/HEADWAITRESS 10/27/2016 Office visit Arabella Trevino APRN 10/02/2016 Office visit Arabella Trevino HEADWAITER/HEADWAITRESS 08/12/2016 Office visit Arabella Trevino HEADWAITER/HEADWAITRESS 05/19/2016 Office visit Arabella Trevino HEADWAITER/HEADWAITRESS 05/08/2016 Laboratory Geeta Gray HEADWAITER/HEADWAITRESS 05/06/2016 Office visit Arabella Trevino APRN 02/13/2016 Office visit Arabella Trevino APRN 01/29/2016 Voided Arabella Trevino HEADWAITER/HEADWAITRESS 01/10/2016 Office visit 01/10/2016 Office visit Arabella Trevino APRN 12/24/2015 Office visit Rhett Nj MD 12/09/2015 Office visit Arabella Trevino APRN 11/16/2015 Office visit Arabella Trevino APRN 08/05/2015 Office visit Arabella Trevino APRN 05/20/2015 Office visit Arabella Trevino APRN
--- OUTSIDE RECORDS SUMMARY | 2017-12-28 09:50 | XMS REPORT | Continuity of Care Document ---
Author Author [facility] Organization [facility] Address [facility] [address] [place] [address] Phone Unavailable Support Name Relationship Address Phone MARIANNA MCLAUGHLIN MD Caregiver [address] [place] [address] Unavailable JANEY DYE/ABDELRAHMAN THOMAS Caregiver [address] [place] [address] AC STOCK Next Of Kin Unknown Insurance Providers Payer Name Policy Number Subscriber Name Relationship Blue Cross/Blue Shield [id number] Tiffany Orellana 18 Self / Same As Patient Advance Directives Directive Response Recorded Date/Time Do you have an Advanced Directive? No 04/04/12 7:34am Advance Directives No 08/03/16 9:45am Living Will No 08/03/16 9:45am Health Care Proxy No 02/28/17 7:35pm Power of Unclaimed Property Officer for Health Care No 08/03/16 9:45am Organ, Tissue, or Eye Donor Yes 08/03/16 9:45am Do you have a signed organ donor card? Yes 12/09/16 8:30am Chief Complaint and Reason for Visit Chief Complaint RIB PAIN Reason for Visit [id number] Problems Active Problems Medical Problem Onset Date [...] Plan of Care Discharge Date 02/28/17 9:17pm Disposition 01 HOME, HALFWAY,ASSISTED LIVING Condition at Discharge Improved Instructions/Education Provided Rib [...] Vital Signs Vital Response Date/Time Temperature (Fahrenheit) 98.5 degrees F (97.6 - 99.5) 02/28/2017 8:55pm Temperature Source Temporal Artery 02/28/2017 8:55pm Pulse Rate (adult) 75 bpm (60 - 90) 02/28/2017 8:55pm Respiratory Rate 18 bpm (12 - 24) 02/28/2017 8:55pm Blood Pressure 100/63 mm Hg 02/28/2017 8:55pm O2 Sat by Pulse Oximetry 98 % (90 - 100) 02/28/2017 8:55pm Oxygen Delivery Method 02/28/2017 8:55pm Pain Intensity 5 01/13/2017 10:20am Pain Location Body Site Modifier Lateral 02/28/2017 8:20pm Height 5 ft 2 in Weight 187 lb Body Mass Index 34.0 kg/m^2 Results No known relevant diagnostic tests, laboratory data and/or discharge summary. Procedures Procedure Status Date Provider(s) X-ray of left ribs, three or more views including chest x-ray Completed 02/28 MARIANNA MCLAUGHLIN MD Encounters Encounter Location Arrival/Admit Date Discharge/Depart Date Attending Provider Departed Emergency Room [place] 02/28/17 7:30pm 02/28/17 9:17pm MARIANNA MCLAUGHLIN MD Discharged Recurring [place] 01/11/17 11:26am 02/11/17 4:18pm Genaro Gong MD Recent Diagnosis
--- OUTSIDE RECORDS SUMMARY | 2017-12-28 09:52 | XMS REPORT ---
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 Thyroid 90 mg oral tablet 08/05/2015 [...] arthritis Active Hallucinations Active Heart Attack Active 1995 Kidney stone Active Osteoporosis Active Thyroid disorder Active Depression Active Dizziness Active Anxiety Active Tingling in extremities Active Mixed hyperlipidemia Active 12/20/2017 Vital Signs Date Time BP-Sys(mm[Hg] BP-Lakshmi(mm[Hg]) HR(bpm) [...] 12:00 AM MYOCARDIAL SPECT MULTIPLE STUDIES Reviewed 12/20/2017 12:00 AM ELECTROCARDIOGRAM TRACING Reviewed 05/20/2015 12:00 [...] Vis Given Vis Pub CVX Tdap 01/10/2016 [facility] SKB BOOSTRIX [id number] Intramuscular Left Arm 01/10/2016 03/02/2013 115 History of Past Illness Name Date of Onset Comments Anxiety arthritis Depression Dizziness Fractured bone Headache Heart Attack 1995 "Per [facility]", no cath Kidney stone Osteoporosis Tingling in extremities Thyroid disorder Weight Change Chronic back pain greater than 3 months duration Hallucinations Anxiety and depression Migraine Vitamin D Deficiency Mixed hyperlipidemia 12/20/2017 Chest pain of uncertain etiology May 20 [...] 30 2016 2:24PM Coronary artery disease involving [place] heart without angina pectoris, unspecified vessel or [...] Shortness of breath Dec 20 2017 1:09PM Chest pain, precordial Dec 20 2017 1:09PM Heart Attack Dec 20 2017 1:09PM Bilateral lower extremity edema Dec 20 2017 1:09PM Mixed hyperlipidemia Dec 20 2017 1:09PM Payers Insurance Name Company Name Plan Name Plan Number Policy Number Policy Group Number Start Date BCBS [facility] [facility] [place] [id number] N/A GlobalCare/ OEFI [employer] [id number] Wednesday, 2015 BCBS [employer] [place] [id number] Tuesday, 2016 History of Encounters Visit Date Visit Type Provider 12/20/2017 Office visit Fuentes Lama ASTROBIOLOGIST 12/13/2017 Office visit Arabella Trevino ASTROBIOLOGIST 11/17/2017 Office visit Arabella Trevino ASTROBIOLOGIST 10/07/2017 Office visit Arabella Trevino ASTROBIOLOGIST 08/13/2017 Office visit Arabella Trevino APRN 07/14/2017 Office visit Arabella Trevino ASTROBIOLOGIST 06/11/2017 Hospital Maegan Oliver MD 06/11/2017 Office visit Arabella Trevino ASTROBIOLOGIST 05/19/2017 Office visit Geeta Gray ASTROBIOLOGIST 04/22/2017 Office visit Arabella Trevino ASTROBIOLOGIST 04/21/2017 Laboratory Tavares Peck ASTROBIOLOGIST 04/06/2017 Office visit Geeta Gray ASTROBIOLOGIST 03/01/2017 Office visit Arabella Trevino ASTROBIOLOGIST 12/30/2016 Office visit Arabella Trevino ASTROBIOLOGIST 10/27/2016 Office visit Arabella Trevino ASTROBIOLOGIST 10/02/2016 Office visit Arabella Trevino ASTROBIOLOGIST 08/12/2016 Office visit Arabella Trevino APRN 05/19/2016 [...]
[2017-12-28] MEDS ORDERED: LIDOCAINE 1% INJ 50 ML (XYLOCAINE) VIAL ONE (09:54)
[2017-12-28] MEDS ORDERED: NS IV 1000 ML 1,000 ML ONE (09:54)
[2017-12-28] MEDS ORDERED: HEParin (CATH LAB) 2,000 ML IV ONE (09:54)
--- OUTSIDE RECORDS SUMMARY | 2017-12-28 09:54 | XMS REPORT ---
Author Author Arabella Trevino Organization [facility] Address [address] [place], [place] [address] Care Team Providers Care Rhinologist Name Role Phone Arabella Trevino PCP , [...] oral route once daily for 90 days pantoprazole 40 mg oral tablet,delayed release (DR/EC) 12/13/2017 take 1 tablet (40 mg) by oral route once daily for 90 days potassium chloride 20 mEq oral tablet extended release 12/13/2017 take 1-2 tablet (20 meq) by oral route once daily with food for 30 days Name Start Date Expiration Date SIG Comments Flonase Allergy Relief 50 mcg/actuation nasal spray,suspension 08/05/201512/03 inhale 1 puff by nasal route daily for 30 days amoxicillin 500 mg oral tablet 08/05/2015 08/15/2015 take 2 tablets by oral route every 12 hours for 10 days 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 Thyroid 90 mg oral tablet 08/05/2015 11/03/2015 [...] HC BMI BSA BMI Percentile O2 Sat(%) 12/13/2017 6:54:00 PM 106 mmHg 80 mmHg 80 bpm 18 rpm 96.3 F 220.25 lbs 62 in 40.28 kg/m2 2.09 m2 99 % 11/17/2017 9:46:00 AM 108 mmHg 82 mmHg 86 bpm 18 rpm 96.7 F 213 lbs 62 in 38.9578 kg/m 2.0558 m 100 % 10/07/2017 2:21:00 PM 100 mmHg [...] Vis Given Vis Pub CVX Tdap 01/10/2016 [facility] SKB BOOSTRIX [id number] Intramuscular Left Arm 01/10/2016 [...] 30 2016 2:24PM Coronary artery disease involving [place] heart without angina pectoris, unspecified vessel or [...] Bilateral Pendulous breast Dec 13 2017 6:55PM Payers Insurance Name Company Name Plan Name Plan Number Policy Number Policy Group Number Start Date BCBS [employer] [place] [id number] N/A GlobalCare/ OEFI [employer]/ [employer]EFI [id number] Wednesday, 2015 BCBS [employer] [place] [id number] N/A History of Encounters Visit Date Visit Type Provider 12/13/2017 Office visit Arabella Trevino MOLD ENGRAVER 11/17/2017 Office visit Arabella Trevino MOLD ENGRAVER 10/07/2017 Office visit Arabella Trevino MOLD ENGRAVER 08/13/2017 Office visit Arabella Trevino MOLD ENGRAVER 07/14/2017 Office visit Arabella Trevino MOLD ENGRAVER 06/11/2017 [facility] Maegan Oliver MD 06/11/2017 Office visit Arabella Trevino MOLD ENGRAVER 05/19/2017 Office visit Geeta Gray MOLD ENGRAVER 04/22/2017 Office visit Arabella Trevino MOLD ENGRAVER 04/21/2017 Laboratory Tavares Peck MOLD ENGRAVER 04/06/2017 Office visit Geeta Gray MOLD ENGRAVER 03/01/2017 Office visit Arabella Trevino MOLD ENGRAVER 12/30/2016 Office visit Arabella Trevino MOLD ENGRAVER 10/27/2016 Office visit Arabella Trevino MOLD ENGRAVER 10/02/2016 Office visit Arabella Trevino MOLD ENGRAVER 08/12/2016 Office visit Arabella Trevino MOLD ENGRAVER 05/19/2016 Office visit Arabella Trevino MOLD ENGRAVER 05/08/2016 Laboratory Geeta Gray MOLD ENGRAVER 05/06/2016 Office visit Arabella Trevino MOLD ENGRAVER 02/13/2016 Office visit Arabella Trevino MOLD ENGRAVER 01/29/2016 Voided Arabella Trevino MOLD ENGRAVER 01/10/2016 Office visit 01/10/2016 Office visit Arabella Trevino MOLD ENGRAVER 12/24/2015 Office visit Rhett Nj MD 12/09/2015 Office visit Arabella Trevino MOLD ENGRAVER 11/16/2015 Office visit Arabella Trevino MOLD ENGRAVER 08/05/2015 Office visit Arabella Trevino MOLD ENGRAVER 05/20/2015 Office visit Arabella Trevino MOLD ENGRAVER
--- OUTSIDE RECORDS SUMMARY | 2017-12-28 09:54 | XMS REPORT ---
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 History of [...] 2015 2:22PM Gastritis Dec 24 2015 2:22PM Payers Insurance Name Company Name Plan Name Plan Number Policy Number Policy Group Number Start Date BCBS [facility] [id number] N/A [employer]/ OEFI Global[employer]/ OEFI [id number] Wednesday, 2015 History of Encounters Visit Date Visit Type Provider 12/24/2015 Office visit Rhett Nj MD 12/09/2015 Office visit Arabella Trevino APRN 11/16/2015 Office visit Arabella Trevino APRN 08/05/2015 Office visit Arabella Trevino APRN 05/20/2015 Office visit Arabella Trevino APRN
--- OUTSIDE RECORDS SUMMARY | 2017-12-28 09:55 | XMS REPORT ---
Author Author Arabella Trevino Organization [facility] Address [address] [facility] [address] [place], [place] [phone] Care Team Providers Care Grid Operator Name Role Phone Arabella Trevino PCP Unavailable [...] Free thyroxine (FT4) measurement 01/10/2016 12:00 AM abd bloating and abd [...] ,000 unit) by oral route once weekly amoxicillin 500 mg oral tablet 10/02/2016 10/12/2016 take 2 tablet by oral route 2 times a day for 10 days EpiPen 2-Chuy 0.3 mg/0.3 mL injection auto-injector 10/02/2016 10/05/2016 inject 0.3 milliliter (0.3 mg) by intramuscular route once as needed for anaphylaxis for 1 day Name Start Date Expiration Date SIG Comments Flonase Allergy Relief 50 mcg/actuation nasal spray,suspension 08/05/201512/03 inhale 1 puff by nasal route daily for 30 days amoxicillin 500 mg oral tablet 08/05/2015 08/15/2015 take 2 tablets by oral route every 12 hours for 10 days LINSEED OIL PRESS TENDER Thyroid 90 mg oral tablet 08/05/2015 11/03/2015 [...] HC BMI BSA BMI Percentile O2 Sat(%) 10/02/2016 9:31:00 AM 120 mmHg 80 mmHg [...] MICROSCOPY Reviewed 10/02/2016 12:00 AM LIPID PANEL Returned 10/02/2016 12:00 AM ASSAY THYROID STIM HORMONE Returned 10/02/2016 12:00 AM ASSAY OF FREE THYROXINE Returned 10/02/2016 12:00 AM FREE ASSAY (FT-3) Returned 10/02/2016 12:00 AM COLLECTION VENOUS BLOOD VENIPUNCTURE [...] Of Immunizations Name Date Admin Mfg Name Mf Code Trade Name Lot# Route Inj Vis Given Vis Pub CVX Tdap 01/10/2016 GlaxMADSKline SKB BOOSTRIX [id number] Intramuscular Left Arm 01/10/2016 [...] 33AM Acute sinusitis Oct 02 2016 9:33AM Payers Insurance Name Company Name Plan Name Plan Number Policy Number Policy Group Number Start Date [facility] [id number] N/A GlobalCare/ OEFI GlobalCare/ OEFI [id number] Wednesday, 2015 History of Encounters Visit Date Visit Type Provider 10/02/2016 Office visit Arabella Trevino INSTRUMENT INSPECTOR 08/12/2016 Office visit Arabella Trevino INSTRUMENT INSPECTOR 05/19/2016 Office visit Arabella Trevino APRN 05/08/2016 [...]
--- OUTSIDE RECORDS SUMMARY | 2017-12-28 09:56 | XMS REPORT ---
Author Author Arabella Trevino Organization [facility] Address [address] [facility] [address] [place], [place] [address] Care Team Providers Care Microwave Oven Assembler Name Role Phone Arabella Trevino PCP Unavailable [...] Free thyroxine (FT4) measurement 01/10/2016 12:00 AM Lipid profile 10/02/2016 12:00 AM TSH 10/02/2016 12:00 AM Free thyroxine (FT4) measurement 10/02/2016 12:00 AM Free triiodothyronine (T3) measurement 10/02/2016 12:00 AM abd bloating and abd pain [...] route every 12 hours for 10 days CHANGE DIRECTOR Thyroid 90 mg oral tablet 08/05/2015 11/03/2015 [...] AUTO W/O MICROSCOPY Reviewed 10/02/2016 12:00 AM COLLECTION VENOUS BLOOD [...] Vis Given Vis Pub CVX Tdap 01/10/2016 GlaxHigh-Tech Bridge SKB BOOSTRIX [id number] Intramuscular Left Arm 01/10/2016 [...] 7:55PM Hyperlipidemia, unspecified Oct 02 2016 9:33AM Hypothyroidism, Acquired Oct 02 2016 9:33AM Acute sinusitis Oct 02 2016 9:33AM Payers Insurance Name Company Name Plan Name Plan Number Policy Number Policy Group Number Start Date BCBS [facility] [id number] N/A [employer]/ OEFI Global[employer]/ OEFI [id number] Wednesday, 2015 History of Encounters Visit Date Visit Type Provider 10/02/2016 Office visit Arabella Trevino APRN 08/12/2016 Office visit Arabella Trevino UTILITIES SERVICE INVESTIGATOR 05/19/2016 Office visit Arabella Trevino APRN 05/08/2016 Laboratory Geeta Gray UTILITIES SERVICE INVESTIGATOR 05/06/2016 Office visit Arabella Trevino UTILITIES SERVICE INVESTIGATOR 02/13/2016 Office visit Arabella Trevino APRN 01/29/2016 Voided Arabella Trevino UTILITIES SERVICE INVESTIGATOR 01/10/2016 Office visit 01/10/2016 Office visit Arabella Trevino APRN 12/24/2015 Office visit Rhett Nj MD 12/09/2015 Office visit Arabella Trevino APRN 11/16/2015 Office visit Arabella Trevino APRN 08/05/2015 Office visit Arabella Trevino APRN 05/20/2015 Office visit Arabella Trevino APRN
--- OUTSIDE RECORDS SUMMARY | 2017-12-28 09:57 | XMS REPORT ---
Author Author Arabella Trevino Organization [facility] Address [address] [place], [place] [address] Care Team Providers Care Coffin Maker Name Role Phone Arabella Trevino PCP Unavailable , blue stem Unavailable Unavailable maravilla Unavailable [...] COMP MIN 2 VIEWS 10/27/2016 12:00 AM EKG (12-lead electrocardiogram) 06/11/2017 12:00 AM CBC With Auto Differential 08/13/2017 12:00 AM CMP 08/13/2017 12:00 AM Thyroid stimulating hormone (TSH) 08/13/2017 12:00 AM Free thyroxine (FT4) measurement 08/13/2017 12:00 AM Free triiodothyronine (T3) measurement 08/13/2017 12:00 AM abd bloating and abd pain [...] by oral route 3 times a day pantoprazole 40 mg oral tablet,delayed release (DR/EC) 05/11/2017 TAKE ONE TABLET BY MOUTH DAILY atorvastatin 20 mg oral tablet 06/11/2017 12/08/2017 take 1 tablet (20 mg) by oral route once daily at bedtime for 90 days Vitamin D3 5,000 unit oral tablet 06/14/2017 06/09/2018 take 1 tablet by oral route daily for 90 days Trokendi XR 200 mg oral capsule,extended release 24hr take 1 capsule by oral route 2 times a day Adult Low Dose Aspirin 81 mg oral tablet,delayed release (DR/EC) 07/14/2017 take 1 tablet (81 mg) by oral route once daily with a meal dihydroergotamine mesylt(bulk) miscellaneous powder use as directed One spray in each nares at onset of migraine. One time per day as needed gabapentin 300 mg oral capsule 08/13/2017 take 1 capsule po in am and 2 at hs. Decreased dose 08/13/17 Nature-Throid 146.25 mg oral tablet 08/13/2017 02/09/2018 take 1 tablet ( 146.25 mg) by oral route once daily before breakfast for 90 days Name Start Date Expiration Date SIG Comments Flonase Allergy Relief 50 mcg/actuation nasal spray,suspension 08/05/201512/03 inhale 1 puff by nasal route daily for 30 days amoxicillin 500 mg oral tablet 08/05/2015 08/15/2015 take 2 tablets by oral route every 12 hours for 10 days PATTERNATOR Thyroid 90 mg oral tablet 08/05/2015 11/03/2015 [...] transdermal route once daily for 30 days Discontinued Name Start Date [...] wean off due to fatige and sleepiness aripiprazole 5 mg oral tablet 08/13/2017 take [...] 3 times per day for 14 days Problem List Description Status Onset Anxiety and depression Active Chronic back pain greater than 3 months duration Active arthritis Active Hallucinations Active Heart Attack Active 2013 Kidney stone Active Osteoporosis Active Thyroid disorder Active Depression Active Dizziness Active Anxiety Active Tingling in extremities Active Vital Signs Date Time BP-Sys(mm[Hg] BP-Lakshmi(mm[Hg]) HR(bpm) RR(rpm) Temp WT HT HC BMI BSA BMI Percentile O2 Sat(%) 08/13/2017 9:51:00 AM 98 mmHg 80 mmHg [...] D 25 HYDROXY Reviewed 06/11/2017 12:[address] HEAD/BRAIN W/O & W/DYE Reviewed 06/11/2017 12:00 AM ASSAY OF MAGNESIUM Reviewed 08/13/2017 12:00 AM COLLECTION VENOUS BLOOD [...] 183.190 uIU/mLFREE T4 0.42 Triiodothyronine,Free,Serum 3.40 pg/mL History Of Immunizations Name Date Admin Mfg Name Mfg Code Trade Name Lot# Route Inj Vis Given Vis Pub CVX Tdap 01/10/2016 Aviate SKB BOOSTRIX [id number] Intramuscular Left Arm 01/10/2016 [...] 30 2016 2:24PM Coronary artery disease involving [place] heart without angina pectoris, unspecified vessel or [...] Other chronic pain Aug 13 2017 10:05AM Payers Insurance Name Company Name Plan Name Plan Number Policy Number Policy Group Number Start Date BCBS Bcbs [facility] [id number] N/A GlobalCare/ OEFI GlobalCare/ OEFI [id number] Wednesday, 2015 History of Encounters Visit Date Visit Type Provider 08/13/2017 Office visit Arabella Trevino APRN 07/14/2017 Office visit Arabella Trevino APRN 06/11/2017 Office visit Arabella Trevino APPRENTICE FUNERAL DIRECTOR 05/19/2017 Office visit Geeta Gray APPRENTICE FUNERAL DIRECTOR 04/22/2017 Office visit Arabella Trevino APPRENTICE FUNERAL DIRECTOR 04/21/2017 Laboratory Tavares Peck APPRENTICE FUNERAL DIRECTOR 04/06/2017 Office visit Geeta Gray APRN 03/01/2017 Office visit Arabella Trevino APRN 12/30/2016 Office visit Arabella Trevino APRN 10/27/2016 Office visit Arabella Trevino APRN 10/02/2016 Office visit Arabella Trevino APRN 08/12/2016 Office visit Arabella Trevino APRN 05/19/2016 Office visit Arabella Trevino APRN 05/08/2016 Laboratory Geeta Gray APPRENTICE FUNERAL DIRECTOR 05/06/2016 Office visit Arabella Trevino APRN 02/13/2016 Office visit Arabella Trevino APRN 01/29/2016 Voided Arabella Trevino APRN 01/10/2016 Office visit 01/10/2016 Office visit Arabella Trevino APRN 12/24/2015 Office visit Rhett Nj MD 12/09/2015 Office visit Arabella Trevino APRN 11/16/2015 Office visit Arabella Trevino APRN 08/05/2015 Office visit Arabella Trevino APRN 05/20/2015 Office visit Arabella Trevino APRN
--- OUTSIDE RECORDS SUMMARY | 2017-12-28 09:58 | XMS REPORT ---
Author Author Arabella Trevino Organization [facility] Address [address] [facility] [address] [place], [place] [phone] Care Team Providers Care Vegetable Packer Name Role Phone Arabella Trevino PCP Unavailable [...] route every 12 hours for 10 days SHIP KEEPER Thyroid 90 mg oral tablet 08/05/2015 11/03/2015 [...] Vis Given Vis Pub CVX Tdap 01/10/2016 [place] SKB BOOSTRIX [id number] Intramuscular Left Arm 01/10/2016 [...] Vitamin D deficiency Aug 12 2016 10:43AM Payers Insurance Name Company Name Plan Name Plan Number Policy Number Policy Group Number Start Date BCBS [facility] [id number] N/A [employer]Care/ OEFI GlobalCare/ OEFI [id number] Wednesday, 2015 History of Encounters Visit Date Visit Type Provider 08/12/2016 Office visit Arabella Trevino SENIOR ENGINEERING ASSOCIATE 05/19/2016 Office visit Arabella Trevino APRN 05/08/2016 [...]
--- OUTSIDE RECORDS SUMMARY | 2017-12-28 09:58 | XMS REPORT ---
Author Author Arabella Trevino Organization [facility] Address [address] [facility] [address] [place], [place] [phone] Care Team Providers Care Toddler Caregiver Name Role Phone Arabella Trevino PCP Unavailable [...] ASSAY OF FREE THYROXINE 01/10/2016 12:00 AM COMPLETE CBC W/AUTO DIFF WBC 08/12/2016 12:00 AM COMPREHEN METABOLIC PANEL 08/12/2016 12:00 AM ASSAY THYROID STIM HORMONE 08/12/2016 12:00 AM ASSAY OF FREE THYROXINE 08/12/2016 12:00 AM ASSAY OF MAGNESIUM 08/12/2016 12:00 AM LIPID PANEL 08/12/2016 12:00 AM VIT D 1 25-DIHYDROXY 08/12/2016 12:00 AM VITAMIN B-12 08/12/2016 12:00 AM ASSAY OF FOLIC ACID SERUM 08/12/2016 12:00 AM URINALYSIS AUTO W/O SCOPE 08/12/2016 12:00 AM abd bloating and abd pain [...] route every 12 hours for 10 days GROUP PRODUCT MANAGER Thyroid 90 mg oral tablet 08/05/2015 11/03/2015 [...] 6 hours as needed for 30 days gabapentin 800 mg oral [...] Vis Given Vis Pub CVX Tdap 01/10/2016 [place] SKB BOOSTRIX [id number] Intramuscular Left Arm 01/10/2016 [...] Vitamin D deficiency Aug 12 2016 10:42AM Payers Insurance Name Company Name Plan Name Plan Number Policy Number Policy Group Number Start Date BCBS [facility] [id number] N/A [employer]Care/ OEFI Global[employer]/ OEFI [id number] Wednesday, May 13, 2015 History of Encounters Visit Date Visit Type Provider 08/12/2016 Office visit Arabella Trevino DIGITAL MEDIA PRODUCER 05/19/2016 Office visit Arabella Trevino APRN 05/08/2016 [...]
[2017-12-28] MEDS: NS IV 1000 ML 1,000 ML IV SCH ×2 (09:59→10:10)
--- OUTSIDE RECORDS SUMMARY | 2017-12-28 09:59 | XMS REPORT ---
Author Author Arabella Trevino Organization [facility] Address [address] [place], [place] [phone] Care Team Providers Care Payroll Representative Name Role Phone Arabella Trevino PCP Unavailable [...] (5 mg) by oral route once daily Name Start Date Expiration Date SIG Comments Flonase Allergy Relief 50 mcg/actuation nasal spray,suspension 08/05/201512/03 inhale 1 puff by nasal route daily for 30 days amoxicillin 500 mg oral tablet 08/05/2015 08/15/2015 take 2 tablets by oral route every 12 hours for 10 days FIELD AIDE Thyroid 90 mg oral tablet 08/05/2015 11/03/2015 [...] HC BMI BSA BMI Percentile O2 Sat(%) 04/22/2017 4:46:00 PM 104 mmHg 78 mmHg [...] Vis Given Vis Pub CVX Tdap 01/10/2016 [place] SKB BOOSTRIX [id number] Intramuscular Left Arm 01/10/2016 [...] 30 2016 2:24PM Coronary artery disease involving [place] heart without angina pectoris, unspecified vessel or [...] Vitamin D deficiency Apr 22 2017 4:58PM Payers Insurance Name Company Name Plan Name Plan Number Policy Number Policy Group Number Start Date [facility] [id number] N/A GlobalCare/ OEFI GlobalCare/ OEFI [id number] Wednesday, 2015 History of Encounters Visit Date Visit Type Provider 04/22/2017 Office visit Arabella Trevino DIESEL ENGINE PIPE FITTER 04/21/2017 Laboratory Tavares Peck DIESEL ENGINE PIPE FITTER 04/06/2017 Office visit Geeta Gray DIESEL ENGINE PIPE FITTER 03/01/2017 Office visit Arabella Trevino DIESEL ENGINE PIPE FITTER 12/30/2016 Office visit Arabella Trevino DIESEL ENGINE PIPE FITTER 10/27/2016 Office visit Arabella Trevino DIESEL ENGINE PIPE FITTER 10/02/2016 Office visit Arabella Trevino DIESEL ENGINE PIPE FITTER 08/12/2016 Office visit Arabella Trevino APRN 05/19/2016 Office visit Arabella Trevino DIESEL ENGINE PIPE FITTER 05/08/2016 Laboratory Geeta Gray DIESEL ENGINE PIPE FITTER 05/06/2016 Office visit Arabella Trevino DIESEL ENGINE PIPE FITTER 02/13/2016 Office visit Arabella Trevino DIESEL ENGINE PIPE FITTER 01/29/2016 Voided Arabella Trevino DIESEL ENGINE PIPE FITTER 01/10/2016 Office visit 01/10/2016 Office visit Arabella Trevino APRN 12/24/2015 Office visit Rhett Nj MD 12/09/2015 Office visit Arabella Trevino APRN 11/16/2015 Office visit Arabella Trevino APRN 08/05/2015 Office visit Arabella Trevino APRN 05/20/2015 Office visit Arabella Trevino APRN
--- OUTSIDE RECORDS SUMMARY | 2017-12-28 10:00 | XMS REPORT ---
Author Author Arabella Trevino Organization [facility] Address [address] [place], [place] [address] Care Team Providers Care Oracle Reports Developer Name Role Phone Arabella Trevino PCP Unavailable [...] route every 12 hours for 10 days LEGAL WORD PROCESSOR Thyroid 90 mg oral tablet 08/05/2015 11/03/2015 [...] Number Policy Group Number Start Date BCBS [facility] [id number] N/A [employer]Care/ OEFI GlobalCare/ OEFI [id number] Wednesday, 2015 History of Encounters Visit Date Visit Type Provider 12/09/2015 Office visit Arabella Trevino APRN 11/16/2015 Office visit Arabella Trevino APRN 08/05/2015 Office visit Arabella Trevino APRN 05/20/2015 Office visit Arabella Trevino APRN
--- OUTSIDE RECORDS SUMMARY | 2017-12-28 10:01 | XMS REPORT ---
Author Geeta Glass [facility] Address [address] [place], [place] [address] Care Team Providers Care Fine Hairer Name Role Phone Geeta Gray PCP Unavailable [...] route every 12 hours for 10 days MATERIAL ENGINEER Thyroid 90 mg oral tablet 08/05/2015 [...] 04/06/2017 12:00 AM Norflex 60mg Injection Reviewed 05/20/2015 12:00 AM ELECTROCARDIOGRAM COMPLETE [...] 13.70 g/dLHCT 42.30 %MCV 96.0 fLMCH 31.10 pgHC 32.40 g/dLRDW SD 50 RDW CV 14.20 [...] Vis Given Vis Pub CVX Tdap 01/10/2016 [place] SKB BOOSTRIX [id number] Intramuscular Left Arm 01/10/2016 [...] 30 2016 2:24PM Coronary artery disease involving [place] heart without angina pectoris, unspecified vessel or lesion type Dec 30 2016 2:24PM Hyperlipidemia, unspecified Mar 01 2017 3:22PM Hypothyroidism, Acquired Mar 01 2017 3:22PM Lumbar radicular pain Mar 01 2017 3:22PM Costochondritis, acute Mar 01 2017 3:22PM Low back pain Apr 06 2017 2:08PM Payers Insurance Name Company Name Plan Name Plan Number Policy Number Policy Group Number Start Date BCBS Bcbs [facility] [id number] N/A GlobalCare/ OEFI GlobalCare/ OEFI [id number] Wednesday, 2015 History of Encounters Visit Date Visit Type Provider 04/06/2017 Office visit Geeta Gray APRN 03/01/2017 [...]
--- OUTSIDE RECORDS SUMMARY | 2017-12-28 10:02 | XMS REPORT ---
Author Author Arabella Trevino Organization [facility] Address [address] [place], [place] [address] Care Team Providers Care Wheel Press Clerk Name Role Phone Arabella Trevino PCP Unavailable [...] route every 12 hours for 10 days POLE FRAME CONSTRUCTION WORKER Thyroid 90 mg oral tablet 08/05/2015 11/03/2015 [...] Vis Given Vis Pub CVX Tdap 01/10/2016 [place] SKB BOOSTRIX [id number] Intramuscular Left Arm 01/10/2016 [...] Number Policy Group Number [facility] Date [facility] [id number] N/A GlobalCare/ OEFI GlobalCare/ OEFI [id number] Wednesday, 2015 History of Encounters Visit Date [...]
--- OUTSIDE RECORDS SUMMARY | 2017-12-28 10:02 | XMS REPORT ---
Author Author Arabella Trevino Organization [facility] Address [address] [place], [place] [phone] Care Team Providers Care Gas Meter Installer Helper Name Role Phone Arabella Trevino PCP Unavailable [...] ASSAY OF FREE THYROXINE 11/16/2015 12:00 AM Medications Active Name Start Date Estimated Completion [...] times per day epinephrine 0.3 mg/0.3 mL (1:1,000) injection auto-injector inject 0.3 milliliter (0.3 mg) by intramuscular route once as needed for anaphylaxis Flonase Allergy Relief 50 mcg/actuation nasal spray,suspension 08/05/201512/03 inhale 1 puff by nasal route daily for 30 days Nature-Throid 130 mg oral tablet 11/16/2015 08/12/2016 take 1 tablet (130 mg ) by oral route once daily before breakfast for 90 days Prozac 20 mg oral capsule take 1 capsule (20 mg) by oral route once daily in the morning for 30 days cyclobenzaprine 10 mg oral tablet 11/16/2015 12/16/2015 take 1 tablet (10 mg) by oral route 3 for 30 days Name Start Date Expiration Date SIG Comments amoxicillin 500 mg oral tablet 08/05/2015 08/15/2015 take 2 tablets by oral route every 12 hours for 10 days REHAB CARE ASSISTANT Thyroid 90 mg oral tablet 08/05/2015 [...] HC BMI BSA BMI Percentile O2 Sat(%) 11/16/2015 2:24:00 PM 120 mmHg 80 mmHg [...] 2015 2:27PM Osteoporosis Nov 16 2015 2:27PM Payers Insurance Name Company Name Plan Name Plan Number Policy Number Policy Group Number Start Date [employer]/ OEFI GlobalCare/ OEFI [id number] Wednesday, 2015 History of Encounters Visit Date Visit Type Provider 11/16/2015 Office visit Arabella Trevino APRN 08/05/2015 Office visit Arabella Trevino APRN 05/20/2015 Office visit Arabella Trevino APRN
--- OUTSIDE RECORDS SUMMARY | 2017-12-28 10:03 | XMS REPORT ---
Author Author Arabella Trevino Organization [facility] Address [address] [facility] [address] [place], [place] [phone] Care Team Providers Care Trim Mechanic Name Role Phone Arabella Trevino PCP Unavailable [...] route every 12 hours for 10 days BIOLOGICAL CHEMIST Thyroid 90 mg oral tablet 08/05/2015 11/03/2015 [...] DIP STICK/TABLET RGNT AUTO W/O MICROSCOPY Reviewed 05/20/2015 12:00 AM ELECTROCARDIOGRAM COMPLETE Reviewed [...] Vis Given Vis Pub CVX Tdap 01/10/2016 [place] SKB BOOSTRIX [id number] Intramuscular Left Arm 01/10/2016 [...] Start Date BCBS Bcbs [facility] [id number] N/A GlobalCare/ OEFI GlobalCare/ OEFI [id number] Wednesday, 2015 History of Encounters Visit Date [...]
--- OUTSIDE RECORDS SUMMARY | 2017-12-28 10:03 | XMS REPORT ---
Author Author Arabella Trevino Organization [facility] Address [address] [place], [place] [phone] Care Team Providers Care Time Cycle Operator Name Role Phone Arabella Trevino PCP [...] route every 12 hours for 10 days HAND SPRING FORMER Thyroid 90 mg oral tablet 08/05/2015 11/03/2015 [...] Vis Given Vis Pub CVX Tdap 01/10/2016 [place] SKB BOOSTRIX [id number] Intramuscular Left Arm 01/10/2016 [...] Number Policy Group Number Start Date [facility] [id number] N/A GlobalCare/ OEFI GlobalCare/ OEFI [id number] Wednesday, 2015 History of Encounters Visit Date Visit Type Provider 01/10/2016 Office visit 01/10/2016 Office visit Arabella Trevino STAKING ENGINEER 12/24/2015 Office visit Rhett Nj MD 12/09/2015 Office visit Arabella Trevino STAKING ENGINEER 11/16/2015 Office visit Arabella Trevino APRN 08/05/2015 Office visit Arabella Trevino APRN 05/20/2015 Office visit Arabella Trevino APRN
--- OUTSIDE RECORDS SUMMARY | 2017-12-28 10:04 | XMS REPORT ---
Author Author Geeta Gray [facility] Address [address] [place], [place] [address] Care Team Providers Care Impregnating Machine Operator Name Role Phone Geeta Gray PCP Unavailable [...] route every 12 hours for 10 days LOAN CONSULTANT Thyroid 90 mg oral tablet 08/05/2015 11/03/2015 [...] 40.0 mg/dLLDL (CALC) 162.0 mg/dLMAGNESIUM 2.50 mg/dL History Of Immunizations Name Date Admin Mfg Name Mfg Code Trade Name Lot# Route Inj Vis Given Vis Pub CVX Tdap 01/10/2016 [place] SKB BOOSTRIX [id number] Intramuscular Left Arm 01/10/2016 [...] Number Policy Group Number Start Date BCBS [facility] [id number] N/A GlobalCare/ OEFI GlobalCare/ OEFI [id number] Wednesday, 2015 History of Encounters Visit Date [...]
--- OUTSIDE RECORDS SUMMARY | 2017-12-28 10:05 | XMS REPORT ---
Author Author Arabella Trevino Organization [facility] Address [address] [place], [place] [address] Care Team Providers Care Material Expeditor Name Role Phone Arabella Trevino PCP Unavailable [...] AM EKG (12-lead electrocardiogram) 06/11/2017 12:00 AM abd bloating and abd [...] (1 mg) by oral route once daily Nature-Throid 146.25 mg oral tablet 04/06/2017 10/03/2017 take 1 tablet ( 146.25 mg) by oral route once daily before breakfast for 90 days fluoxetine 40 mg oral capsule take [...] by oral route daily for 90 days aripiprazole 5 mg oral tablet take 1 tablet by oral route 2 times a day Trokendi XR 200 mg oral capsule,extended release 24hr take 1 capsule by oral route 2 times a day Adult Low Dose Aspirin 81 mg oral tablet,delayed release (DR/EC) 07/14/2017 take 1 tablet (81 mg) by oral route once daily with a meal tramadol 50 mg oral tablet 07/14/2017 10/12/2017 take 1 tablet by oral route 3 times a day for 30 days sulfamethoxazole-trimethoprim 800-160 mg oral tablet 07/14/2017 take 1 tablet by oral route every 12 hours for 10 days mupirocin 2 % topical ointment 07/14/2017 apply a small amount to the affected area by topical route 3 times per day for 14 days Name Start Date Expiration Date SIG Comments Flonase Allergy Relief 50 mcg/actuation nasal spray,suspension 08/05/201512/03 inhale 1 puff by nasal route daily for 30 days amoxicillin 500 mg oral tablet 08/05/2015 08/15/2015 take 2 tablets by oral route every 12 hours for 10 days 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 Thyroid 90 mg oral tablet 08/05/2015 11/03/2015 [...] wean off due to fatige and sleepiness Problem List Description Status Onset Anxiety and depression Active Chronic back pain greater than 3 months duration Active arthritis Active Hallucinations Active Heart Attack Active 2013 Kidney stone Active Osteoporosis Active Thyroid disorder Active Depression Active Dizziness Active Anxiety Active Tingling in extremities Active Vital Signs Date Time BP-Sys(mm[Hg] BP-Lakshmi(mm[Hg]) HR(bpm) RR(rpm) Temp WT HT HC BMI BSA BMI Percentile O2 Sat(%) 07/14/2017 11:17:00 AM 102 mmHg 66 mmHg [...] Vis Given Vis Pub CVX Tdap 01/10/2016 [employer] SKB BOOSTRIX [id number] Intramuscular Left Arm 01/10/2016 [...] 30 2016 2:24PM Coronary artery disease involving [place] heart without angina pectoris, unspecified vessel or [...] 11:31AM Cervical pain Jul 14 2017 11:31AM Payers Insurance Name Company Name Plan Name Plan Number Policy Number Policy Group Number Start Date [facility] [id number] N/A [employer] [id number] Wednesday, 2015 History of Encounters Visit Date Visit Type Provider 07/14/2017 Office visit Arabella Trevino MIXER OPERATOR HOT METAL 06/11/2017 Office visit Arabella Trevino MIXER OPERATOR HOT METAL 05/19/2017 Office visit Geeta Gray MIXER OPERATOR HOT METAL 04/22/2017 Office visit Arabella Trevino MIXER OPERATOR HOT METAL 04/21/2017 Laboratory Tavares Peck MIXER OPERATOR HOT METAL 04/06/2017 Office visit Geeta Gray MIXER OPERATOR HOT METAL 03/01/2017 Office visit Arabella Trevino MIXER OPERATOR HOT METAL 12/30/2016 Office visit Arabella Trevino MIXER OPERATOR HOT METAL 10/27/2016 Office visit Arabella Trevino MIXER OPERATOR HOT METAL 10/02/2016 Office visit Arabella Trevino MIXER OPERATOR HOT METAL 08/12/2016 Office visit Arabella Trevino APRN 05/19/2016 Office visit Arabella Trevino MIXER OPERATOR HOT METAL 05/08/2016 Laboratory Geetagenoveva Gray MIXER OPERATOR HOT METAL 05/06/2016 Office visit Arabella Trevino APRN 02/13/2016 Office visit Arabella Trevino APRN 01/29/2016 Voided Arabella Treivno MIXER OPERATOR HOT METAL 01/10/2016 Office visit 01/10/2016 Office visit Arabella Trevino APRN 12/24/2015 Office visit Rhett Nj MD 12/09/2015 Office visit Arabella Trevino APRN 11/16/2015 Office visit Arabella Trevino APRN 08/05/2015 Office visit Arabella Trevino MIXER OPERATOR HOT METAL 05/20/2015 Office visit Arabella Trevino APRN
--- OUTSIDE RECORDS SUMMARY | 2017-12-28 10:07 | XMS REPORT | Continuity of Care Document ---
Author Author [facility] Organization [facility] Address Unknown Phone Unavailable Allergies There is no data. Medications There is no data. Problems There is no data. Procedures There is no data. Results There is no data. Encounters ACCT No. Visit Date/Time Discharge Status Pt. Type Provider Facility Loc./Unit Complaint [id number] 12/13/2017 19:29:25 12/13/2017 23:59:59 [facility] Outpatient Arabella Trevino [id number] 11/17/2017 10:42:19 11/17/2017 23:59:59 [facility] Outpatient Arabella Trevino [id number] 10/07/2017 15:20:03 10/07/2017 23:59:59 [facility] Outpatient Arabella Trevino [id number] 10/06/2017 11:21:27 10/06/2017 23:59:59 [facility] Outpatient Maegan Oliver [id number] 08/13/2017 10:37:59 08/13/2017 23:59:59 [facility] Outpatient Arabella Trevino [id number] 07/14/2017 11:07:01 07/14/2017 23:59:59 [facility] Outpatient Arabella Trevino [id number] 06/11/2017 09:52:12 06/11/2017 23:59:59 [facility] Outpatient Arabella Trevino [id number] 05/19/2017 11:44:27 05/19/2017 23:59:59 [facility] Outpatient Geeta Gray [id number] 04/22/2017 17:30:04 04/22/2017 23:59:59 [facility] Outpatient Arabella Trevino [id number] 04/21/2017 16:41:28 04/21/2017 23:59:59 [facility] Outpatient Tavares Peck [id number] 04/06/2017 14:50:26 04/06/2017 23:59:59 [facility] Outpatient Geeta Gray [id number] 03/01/2017 15:58:12 03/01/2017 23:59:59 [facility] Outpatient Arabella Trevino [id number] 12/30/2016 15:13:24 12/30/2016 23:59:59 [facility] Outpatient Arabella Trevino [id number] 10/27/2016 15:27:52 10/27/2016 23:59:59 [facility] Outpatient Arabella Trevino [id number] 10/02/2016 10:04:11 10/02/2016 23:59:59 [facility] Outpatient Arabella Trevino [id number] 08/12/2016 11:20:25 08/12/2016 23:59:59 [facility] Outpatient Arabella Trevino [id number] 05/30/2016 12:55:29 05/30/2016 23:59:59 [facility] Outpatient Arabella Trevino [id number] 05/19/2016 15:17:42 05/19/2016 23:59:59 [facility] Outpatient Arabella Trevino [id number] 05/13/2016 11:34:29 05/13/2016 23:59:59 [facility] Outpatient Arabella Trevino [id number] 05/08/2016 11:32:38 05/08/2016 23:59:59 [facility] Outpatient Geeta Gray [id number] 05/06/2016 14:28:21 05/06/2016 23:59:59 [facility] Outpatient Arabella Trevino [id number] 01/10/2016 10:15:12 01/10/2016 23:59:59 [facility] Outpatient Arabella Trevino [id number] 12/24/2015 15:04:30 12/24/2015 23:59:59 [facility] Outpatient Rhett Nj [id number] 12/09/2015 19:13:41 12/09/2015 23:59:59 [facility] Outpatient Arabella Trevino [id number] 11/16/2015 14:40:46 11/16/2015 23:59:59 [facility] Outpatient Arabella Trevino [id number] 08/05/2015 18:00:31 08/05/2015 23:59:59 [facility] Outpatient Arabella Trevino [id number] 06/03/2015 22:24:38 06/03/2015 23:59:59 [facility] Outpatient Arabella Trevino
--- OUTSIDE RECORDS SUMMARY | 2017-12-28 10:07 | XMS REPORT ---
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 Thyroid 90 mg oral tablet 08/05/2015 11/03/2015 [...] Vis Given Vis Pub CVX Tdap 01/10/2016 [employer] SKB BOOSTRIX [id number] Intramuscular Left Arm 01/10/2016 03/02/2013 115 History of Past Illness Name Date of Onset Comments Anxiety arthritis Depression Dizziness Fractured bone Headache Heart Attack 1995 "Per [facility]", no cath Kidney stone Osteoporosis [...] 30 2016 2:24PM Coronary artery disease involving [place] heart without angina pectoris, unspecified vessel or [...] Group Number Start Date [employer] [place] [id number] N/A [employer] [id number] Wednesday, 2015 [employer] [place] [id number] Tuesday, 2016 History of Encounters Visit Date Visit Type Provider 12/20/2017 Office visit Fuentes Lama TATTOO AND BODY ARTIST 12/13/2017 Office visit Arabella Trevino TATTOO AND BODY ARTIST 11/17/2017 Office visit Arabella Trevino TATTOO AND BODY ARTIST 10/07/2017 Office visit Arabella Trevino TATTOO AND BODY ARTIST 08/13/2017 Office visit Arabella Trevino APRN 07/14/2017 Office visit Arabella Trevino TATTOO AND BODY ARTIST 06/11/2017 Hospital Maegan Oliver MD 06/11/2017 Office visit Arabella Trevino TATTOO AND BODY ARTIST 05/19/2017 Office visit Geeta Gray TATTOO AND BODY ARTIST 04/22/2017 Office visit Arabella Trevino TATTOO AND BODY ARTIST 04/21/2017 Laboratory Tavares Peck TATTOO AND BODY ARTIST 04/06/2017 Office visit Geeta Gray TATTOO AND BODY ARTIST 03/01/2017 Office visit Arabella Trevino TATTOO AND BODY ARTIST 12/30/2016 Office visit Arabella Trevino TATTOO AND BODY ARTIST 10/27/2016 Office visit Arabella Trevion TATTOO AND BODY ARTIST 10/02/2016 Office visit Arabella Trevino TATTOO AND BODY ARTIST 08/12/2016 Office visit Arabella Trevino APRN 05/19/2016 [...]
[2017-12-28 10:15] LABS: MEAN PLATELET VOLUME 9.6 FL (7.4-10.4); RED BLOOD COUNT 4.36 10^6/uL (4.35-5.85); RED CELL DISTRIBUTION WIDTH 13.7 % (10.0-14.5); WHITE BLOOD COUNT 8.9 10^3/uL (4.3-11.0)
[2017-12-28 10:27] LABS: INR 0.9 (0.8-1.4)
[2017-12-28] MEDS ORDERED: INFLUENZA TRIvalent 2017-2018 0.5 ML/45 MCG SYR IM ONE (10:30)
[2017-12-28 10:35] LABS: BILIRUBIN,TOTAL 0.4 MG/DL (0.1-1.0); CALCIUM 8.9 MG/DL (8.5-10.1); CREATININE SERUM 1.11 MG/DL (0.60-1.30); POTASSIUM 4.2 MMOL/L (3.6-5.0); TOTAL PROTEIN 7.1 GM/DL (6.4-8.2)
[2017-12-28] MEDS ORDERED: diphenhydrAMINE 50 MG/ML INJ (BENADRYL) ONE (13:51)
[2017-12-28] MEDS ORDERED: MIDAZOLAM 5 MG/5 ML (VERSED) VIAL ONE (13:51)
[2017-12-28] MEDS ORDERED: fentaNYL INJECTION 100 MCG/2 ML AMP ONE (13:51)
--- NOTE | 2017-12-28 13:58 | Cardiac Procedure Note-CS/ASA ---
Pre-Procedure Note Pre-Op Procedure Note H&P Reviewed The H&P was reviewed, patient examined and no changes noted. Date H&P Reviewed: Dec 28, 2017 Time H&P Reviewed: 13:58 Conscious Sedation Pre-Proced Time Reviewed: 13:58 ASA Class: 3 Airway Mallampati Classification: ([place] appropriate class) I. II. III, IV Lungs Heart ASA score ASA 1: a normal healthy patient ASA 2: a patient with a mild systemic disease (mid diabetes, controlled hypertension, obesity ASA 3: a patient with a severe systemic disease that limits activity (angina , COPD, prior Myocardial infarction) ASA 4: a patient with an incapacitating disease that is a constant threat to life (CHF, renal failure) ASA 5: a moribund patient not expected to survive 24 hrs. (ruptured aneurysm) ASA 6: a declared brain patient whose organs are being harvested. For emergent operations, add the letter E after the classification Grade 2 Sedation Plan: Analgesia, Amnesia, Plan communicated to team members, Discussed options with patient/fam, Discussed risks with patient/fam Note The patient is an appropriate candidate to undergo the planned procedure, sedation, and anesthesia. The patient immediately re-assessed prior to indication. MARIAM NINA MD FACP FAC CCDS Dec 28, 2017 13:58
[2017-12-28] MEDS ORDERED: NS IV 1000 ML 1,000 ML IV SCH (14:54)
[2017-12-28] MEDS ORDERED: PATIENT MAY USE OWN MEDS, ALL PO SCH (15:00)
[2017-12-28] MEDS ORDERED: LEVO200T6 PO (15:32)
[2017-12-28] MEDS ORDERED: FURO20TA4 PO (15:32)
[2017-12-28] MEDS ORDERED: POTA-51 PO (15:32)
[2017-12-28] MEDS ORDERED: PANT40TA3 PO (15:32)
[2017-12-28] MEDS ORDERED: ARIP15TA9 PO (15:32)
[2017-12-28] MEDS ORDERED: GABA800T2 PO (15:32)
[2017-12-28] MEDS ORDERED: ATOR20TA66 PO (15:32)
[2017-12-28] MEDS ORDERED: HYDR-700 PO (15:32)
[2017-12-28] MEDS ORDERED: METO-352 PO (15:32)
[2017-12-28] MEDS ORDERED: BENZ1TAB6 PO (15:32)
[2017-12-28] MEDS ORDERED: FLUO40CA12 PO (15:32)
[2017-12-28] MEDS ORDERED: CHOL500061 PO (15:32)
[2017-12-28] MEDS ORDERED: ASPI-983 PO (15:32)
[2017-12-28] MEDS ORDERED: CALC-308 PO (15:32)
--- NOTE | 2017-12-28 16:40 | Discharge Inst-Post CATH ---
Discharge Inst-CATH Post Cardiac Cath D/C Inst Follow Up/Plan F/u with Dr Robles on Wednesday01/03/18 CARDIAC CATH DISCHARGE INSTRUCTIONS *Hold Metformin for 48 hours post heart cath. ACTIVITY * Go Home directly and rest. * Limit activity of the leg (or wrist if it was used) for 7 days including aerobics, swimming, jogging, bicycling, etc. * Restrict stair-climbing for 7 days if possible, if not, climb up with your non -cath leg, then bring together on the same step. * Avoid lifting, pushing, pulling or excessive movement of the affected extremity for 7 days. * Customary sexual activity may be resumed after 2 days-use caution not to use a position that strains or causes pain to the affected extremity. * No driving for 24 hours. * NO SMOKING. * Avoid straining for bowel movements for 7 days. * Gentle walking on level ground is allowed. * Returning to work will depend on the type of procedure and the results. Your doctor will discuss this with you. CALL YOUR DOCTOR FOR ANY OF THE FOLLOWING: *If bleeding from the puncture site occurs- Apply gentle pressure to site with clean cloth and call your doctor or EMS. * If a knot or lump forms under the skin, increases in size, or causes pain. * If bruising appears to be worsening or moving further down your leg instead of disappearing. * Temperature above 101 F. CARE OF YOUR GROIN INCISION; * Bruising or purple discoloration of the skin near the puncture site is common. * You may shower only, no bathtub bathing for 5 days. Be careful to avoid slipping as your leg may feel stiff. * If a closure device was used on your femoral artery, please see the attached guide regarding care of the device and your leg. * REMOVE the dressing from your groin the next day after your procedure in the shower. CARE OF YOUR WRIST INCISION; * Bruising or purple discoloration of the skin near the puncture site is common. * You may shower. * DO NOT submerge wrist. * Remove dressing in 24 hours. MARIAM ROBLSE MD FACP [facility] CCDS Dec 28, 2017 16:40
--- NOTE | 2017-12-28 16:43 | Discharge Inst-Cardiology ---
Discharge Inst-Cardiac Discharge Medications Continued Medications: Aripiprazole (Aripiprazole) 15 Mg Tablet 15 MG PO DAILY, TAB Aspirin (Aspirin EC) 81 Mg Tablet.dr 81 MG PO DAILY, TAB Atorvastatin Calcium (Atorvastatin Calcium) 20 Mg Tablet 20 MG PO DAILY, TAB Benztropine Mesylate (Benztropine Mesylate) 1 Mg Tablet 1 MG PO BID, TAB Calcium Carbonate (Calcium) 500 Mg Tab.chew 500 MG PO BID, TAB Cholecalciferol (Vitamin D3) (Vitamin D3) 5,000 Unit Tab.rapdis 5000 UNIT PO DAILY, TAB Fluoxetine HCl (Prozac) 40 Mg Capsule 40 MG PO DAILY, CAP Furosemide (Furosemide) 20 Mg Tablet 20 MG PO DAILY PRN PRN for swelling, TAB one tablet daily, may take addtional pill for swelling if needed Gabapentin (Gabapentin) 800 Mg Tablet 800 MG PO TID, TAB Hydroxyzine HCl (Hydroxyzine HCl) 25 Mg Tablet 25 MG PO TID PRN for ANXIETY, TAB Levothyroxine Sodium (Levothyroxine Sodium) 200 Mcg Tablet 200 MCG PO, TAB Metoprolol Succinate (Toprol Xl) 50 Mg Tab.er.24h 50 MG PO DAILY, TAB Pantoprazole Sodium (Pantoprazole Sodium) 40 Mg Tablet.dr 40 MG PO DAILY, TAB Potassium Chloride (Potassium Chloride) 20 Meq Tablet.er 20 MEQ PO DAILY, TAB if additional furosemide is taken for swelling take an additional potassium pill. MARIAM NINA MD FACP FACC CCDS Dec 28, 2017 16:43
--- NOTE | 2017-12-28 18:05 | CARDIAC CATHETERIZATION ---
DATE OF SERVICE: 12/28/2017 CARDIAC CATHETERIZATION AND PERIPHERAL ANGIOGRAPHY REPORT HISTORY: The patient is a 47-year-old lady who has multiple coronary artery disease risk factors and who has been having symptoms of angina and bilateral leg claudication. A myocardial perfusion imaging study done at [place] by Dr. Oliver was reported to have shown inferoapical ischemia. Cardiac catheterization was carried out today. Informed consent was obtained for cardiac catheterization and possible peripheral angiography. PROCEDURE: She was brought to the cardiac catheterization laboratory in a fasting state. Right groin was prepared and draped in the usual sterile fashion. Lidocaine 1% as local anesthesia. Modified Seldinger technique was used to advance a 5-Russian sheath in the right femoral artery. A 5-Russian JL4 catheter for coronary angiography. A 5-Russian pigtail catheter was used for left heart catheterization and left ventricular angiography. A 5-Russian pigtail catheter was pulled back to the aortic root and aortic root angiography. This was performed. Aortic root angiography was performed because we were not able to locate the right coronary artery with the 5-Russian JR4 catheter. The following aortic root angiography, we were able to engage the right coronary artery with a 5-Russian Kevin right catheter. Following completion of the cardiac catheterization procedure, we carried out the abdominal aortic angiography using a pigtail catheter placed at the level of L1. This catheter was then pulled back to just above the level of the aortoiliac bifurcation and bilateral leg artery angiography performed with runoff down to the level of the ankles. She tolerated the procedure well. At the end of the procedure, angiography of the right femoral artery was carried out through the sheath and Mynx was used to achieve hemostasis. She tolerated the procedure well. HEMODYNAMICS: Left ventricular end-diastolic pressure following coronary angiography was approximately 34 mmHg. There was no significant pressure gradient pullback across the aortic valve. Ascending aortic pressure was 113/83 with a mean of 78 mmHg. CORONARY ANGIOGRAPHY: Left main coronary artery is free of significant disease. Left anterior descending artery is free of significant disease. Left circumflex artery is free of significant disease. Right coronary artery is dominant and has 40% mid vessel and 50% distal stenoses. LEFT VENTRICULAR ANGIOGRAPHY: Left ventricular angiography was carried out in the right anterior oblique projection. Global left ventricular systolic function was normal. No regional wall motion abnormalities seen. Left ventricular ejection fraction is approximately 65%. AORTIC ROOT ANGIOGRAPHY: Aortic root angiography did not indicate any ascending aortic aneurysm or dissection or any significant aortic regurgitation. This did locate the right coronary artery, which we were subsequently able to engage selectively. ABDOMINAL AORTIC ANGIOGRAPHY: Abdominal aortic angiography did not indicate any significant abdominal aortic aneurysm or dissection. The mesenteric vessels and the renal arteries are identified and do not seem to have significant disease. Aortoiliac bifurcation does not have significant disease. BILATERAL PERIPHERAL ANGIOGRAPHY: Bilateral peripheral angiography did not indicate any significant disease of the iliac arteries, common femoral arteries, superficial femoral arteries, popliteal arteries or the trifurcation vessels on either side. CONCLUSIONS: 1. Coronary artery disease, mild. 2. Normal global left ventricular systolic function with ejection fraction of 65%. 3. Elevated left ventricular end diastolic pressure. 4. No significant mitral regurgitation. 5. No evidence of abdominal aortic aneurysm. 6. No significant disease of the arterial circulation of the lower limbs. DISCUSSION AND RECOMMENDATIONS: Based on the results of the study, discomfort does not appear to be of cardiovascular origin. We recommend continuing risk factor modification. We have advised outpatient followup. Job ID: [id number] DocumentID: [id number] Dictated Date: 12/28/2017 15:02:59 Slag Wheeler Date: 12/28/2017 17:44:33 Dictated By: MARIAM NINA MD, MA, FACP, FACC,
== END 2017-12-28 17:25 | disposition home or self-care (01) ==
LOC: CATH 09:32
PROVIDERS: ATTEND Nurse Practitioner Family
DX: I25.10 Atherosclerotic heart disease of native coronary artery without angina pectoris (principal); I73.9 Peripheral vascular disease, unspecified; E78.5 Hyperlipidemia, unspecified; F17.210 Nicotine dependence, cigarettes, uncomplicated; E66.01 Morbid (severe) obesity due to excess calories; Z68.41 Body mass index [BMI] 40.0-44.9, adult; Z82.49 Family history of ischemic heart disease and other diseases of the circulatory system; Z79.82 Long term (current) use of aspirin; Z79.899 Other long term (current) drug therapy
CPT/HCPCS: 36415; 75630; 80053; 80061; 85027; 85610; 85730; 87081; 93458; 93567